=== PATIENT | male | born 1945 | race Caucasian/White ===

== ENCOUNTER → 2017-08-02 | Outpatient (CLI) | payer OTHER ==
[~2017-08-02] MED LIST: GADAVIST IV PRN
[2017-08-02 17:11] LABS: ISTAT ARTERIAL BLOOD GAS HCO3 31 meq/L (19-24); ISTAT ARTERIAL BLOOD GAS PCO2 57 mmHg (35-46); ISTAT ARTERIAL BLOOD GAS PO2 < 32 mmHg (80-95); ISTAT ARTERIAL BLOOD GAS pH 7.34 (7.35-7.45); ISTAT CARBON DIOXIDE 32 mEq/l (24-31)
[2017-08-02 17:21] LABS: ISTAT CREATININE 1.1 mg/dl (0.6-1.3); ISTAT HEMOGLOBIN 11.9 g/dl (14.0-18.0); ISTAT IONIZED CALCIUM 1.24 mmol/l (1.12-1.32)
--- NOTE | 2017-08-02 17:52 | DIAGNOSTIC IMAGING REPORT ---
Brain MRI WITH AND WITHOUT CONTRAST HISTORY: SHORT TERM MEMORY LOSS TECHNIQUE: Multiplanar multisequence MRI of the brain was performed both before and after the intravenous administration of contrast. COMPARISON STUDY: None. FINDINGS: There is no mass, hematoma, midline shift, or acute infarct. Moderate mucosal thickening throughout the majority of the paranasal sinuses with near complete opacification the right maxillary sinus due to a fluid level. Trace fluid within the left maxillary sinus and within the ethmoid air cells. Mild mucosal thickening within the mastoid air cells. Old lacunar infarcts seen within the left thalamus.. The ventricles and sulci demonstrate mild age-related involutional changes. Scattered foci of T2 hyperintensity seen within the periventricular and subcortical white matter are nonspecific but suggestive of mild microvascular ischemic changes. The major vascular flow voids at the skull base are well-maintained. No abnormal enhancement. IMPRESSION: No acute intracranial abnormality. Scattered foci of T2 hyperintensity seen within the periventricular and subcortical white matter are nonspecific but favor microvascular ischemic change. Acute on chronic paranasal sinusitis as described above. Electronically signed by: Boston Ball M.D. 08/02/2017 5:51 PM Dictated Date/Time: 08/02/2017 5:42 PM
== END | disposition home or self-care (01) ==
LOC: C.MRI 16:17
PROVIDERS: ATTEND Family Medicine
DX: R41.3 Other amnesia (principal); J01.90 Acute sinusitis, unspecified; J32.9 Chronic sinusitis, unspecified

== ENCOUNTER 2019-07-22 09:22 | Inpatient (IN) ==
[2019-07-22] MEDS ORDERED: OPTIRAY 320 125ml IV PRN (09:35)
--- NOTE | 2019-07-22 09:37 | CT Scan Report ---
CT head/brain wo con CLINICAL HISTORY: 73 years-old Male presenting with Stroke evaluation, left-sided weakness. TECHNIQUE: Multidetector CT imaging of the head was performed without the use of intravenous contrast . IV contrast: None. One or more dose lowering techniques were used consistent with the principles of ALARA (as low as reasonably achievable), including automatic exposure control, mA or kV adjustment t o individual patient size, and/or use of iterative reconstruction. COMPARISON: Correlation made to MRI brain from 2017. CT DOSE (mGy.cm): The estimated cumulative dose is 1076.28. FINDINGS: Blueprint Clerk topogram: The patient is edentulous. Proportional ventricular and sulcal prominence, likely age-related parenchymal volume loss. No hemorr leticia. Few old lacunar infarct suggested in the basal ganglia. No acute territorial infarct. No mass e ffect or midline shift. No extra-axial fluid collection. Extensive mucosal thickening in the paranasa l sinuses. Calvarium intact. IMPRESSION: 1. No acute intracranial abnormality. Electronically signed by: Axel Carbajal M.D. 07/22/2019 9:35 AM
[2019-07-22] MEDS ORDERED: MAGNESIUM SULFATE / D5W 1 GM/100 ML BAG IV ONE (09:41)
[2019-07-22] MEDS ORDERED: SODIUM CHLORIDE 0.9% 1000ML 1,000 ML IV ONE (09:41)
--- NOTE | 2019-07-22 09:49 | CT Scan Report ---
CT angio neck with con CLINICAL HISTORY: 73 years-old Male presenting with Pt c/o weakness, stroke alert. TECHNIQUE: Multidetector CT angiography of the neck was performed after the administration of intrave nous contrast. 3-D volumetric and/or maximum intensity projection (MIP) images were subsequently tamiko nstructed for review. IV contrast: 120 mL of Optiray 320. One or more dose lowering techniques were u sed consistent with the principles of ALARA (as low as reasonably achievable), including automatic ex posure control, mA or kV adjustment to individual patient size, and/or use of iterative reconstructio n. Stenosis measurements were based on NASCET-like criteria (distal lumen diameter as the denominator for stenosis measurement). COMPARISON: None. CT DOSE (mGy.cm): The estimated cumulative dose is 1076.28 mGy.cm. FINDINGS: Scissors Grinder topogram: Unremarkable. Aortic arch: Atherosclerosis of the three-vessel aortic arch with patent origins of the branch vessel s. Innominate artery: Noncalcified atherosclerotic plaque resulting in 50% stenosis. Right subclavian artery: Patent. Right common carotid artery: Noncalcified atherosclerotic plaque resulting in less than 25% stenosis of the distal portion. Right internal and external carotid arteries: Calcified and noncalcified atherosclerotic plaque at th e carotid bifurcation. Over 90% stenosis of the origin of the external carotid artery. Less than 50% stenosis of the proximal ICA beyond the bifurcation. Left common carotid artery: Less than 25% stenosis of the origin due to noncalcified atherosclerotic plaque. Left internal and external carotid arteries: Significant noncalcified atherosclerotic plaque at the b ifurcation with over 90% stenosis of the origin of the internal carotid artery. Origin of the externa l carotid artery widely patent. Remainder of the ICA patent. Left subclavian artery: Not calcified atherosclerotic plaque with less than 25% stenosis of the origi n and proximal course of the left subclavian artery. Vertebral arteries: Left dominant vertebral artery. Origin of the left vertebral artery is occluded a s well as the proximal course. Reconstitution of flow within the artery within the transverse foramen at C6-7 with irregularity of the artery until the level of the mid cervical spine. Widely patent rig ht vertebral artery in the upper cervical spine through the intradural portion. Left vertebral artery widely patent. Other: Limited intracranial evaluation within normal limits. Extensive paranasal sinus mucosal thicke ellen. Soft tissues of the neck normal. Degenerative changes of the cervical spine. Extensive emphysem a at the apices. IMPRESSION: 1. 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 This could suggest either extensive atherosclerosis or dissection. Notably, the left terry tebral artery is dominant rather than the right and the right vertebral artery is widely patent in th e upper cervical spine through the intradural portion. These findings may be on an acute or chronic b asis. 2. 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 3. 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 4. Lesser degrees of stenoses from atherosclerotic plaque as above. The report will be called/faxed according to standard departmental protocol. Electronically signed by: Axel Carbajal M.D. 07/22/2019 9:48 AM
--- NOTE | 2019-07-22 09:58 | CT Scan Report ---
CT angio head w con CLINICAL HISTORY: 73 years-old Male presenting with Pt c/o weakness. TECHNIQUE: Multidetector CT angiography of the head was performed after the administration of intrave nous contrast. 3-D volumetric and/or maximum intensity projection (MIP) images were subsequently tamiko nstructed for review. IV contrast: 120 mL of Optiray 320. One or more dose lowering techniques were u sed consistent with the principles of ALARA (as low as reasonably achievable), including automatic ex posure control, mA or kV adjustment to individual patient size, and/or use of iterative reconstructio n. COMPARISON: None. CT DOSE (mGy.cm): The estimated cumulative dose is 1076.28. FINDINGS: Furniture Arranger topogram: Unremarkable. Anterior circulation: Atherosclerosis of the cavernous segments of the internal carotid arteries. Int racranial portions of the internal carotid arteries patent to the level of the termini. Anterior cere bral arteries (BARON) patent. The A1 segment of the left BARON is hypoplastic. Middle cerebral arteries p atent. Anterior communicating artery patent. Posterior circulation: Left dominant vertebral artery. Intradural portions of the vertebral arteries patent. Posterior inferior cerebellar arteries patent. Basilar artery patent. Anterior inferior cereb ellar arteries poorly visualized. Superior cerebellar arteries patent. Focal vessel cut off of the di stal pubic one segment of the right posterior cerebral artery (CORPORATE EXECUTIVE CHEF). Left CORPORATE EXECUTIVE CHEF patent. Left posterior communicating artery (P-comm) patent. Right P-comm hypoplastic or aplastic. Dural venous sinuses: Patent. Other: Allowing for the phase of contrast, brain parenchyma within normal limits. Extensive coastal t hickening in the paranasal sinuses with evidence of chronic sinusitis. IMPRESSION: 1. 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 Notably, the right posterior communicating artery is hypoplastic or aplastic. The report will be called/faxed according to standard departmental protocol. Electronically signed by: Axel Carbajal M.D. 07/22/2019 9:57 AM
[2019-07-22 10:03] LABS: iSTAT Creatinine 1.2 mg/dl (0.6-1.3); iSTAT Hemoglobin 10.5 g/dl (14.0-18.0); iSTAT Ionized Calcium 1.09 mmol/l (1.12-1.32); iSTAT Potassium 4.3 mEq/L (3.3-5.0)
[2019-07-22 10:04] LABS: Basophils # (auto) 0.01 K/uL (0-0.2); Basophils % (auto) 0.2 %; Eosinophils # (auto) 0.24 K/uL (0-0.5); Eosinophils % (auto) 4.3 %; Hematocrit (blood only) 32.7 % (42-52); Hemoglobin 11.1 g/dL (14.0-18.0); Immature Granulocytes # (auto) 0.03 K/uL (0.00-0.02); Immature Granulocytes % (auto) 0.5 %; Lymphocytes # (auto) 0.97 K/uL (1.2-3.4); Lymphocytes % (auto) 17.4 %; Mean Corpuscular Hemoglobin 31.4 pg (25-34); Mean Corpuscular Hgb Conc 33.9 g/dL (32-36); Mean Corpuscular Volume 92.6 fL (80-100); Monocytes # (auto) 0.42 K/uL (0.11-0.59); Monocytes % (auto) 7.5 %; Neutrophils % (auto) 70.1 %; Platelet Count 147 K/uL (130-400); RDW Coefficient of Variation 12.2 % (11.5-14.5); RDW Standard Deviation 41.5 fL (36.4-46.3); Red Blood Count 3.53 M/uL (4.7-6.1); White Blood Count 5.57 K/uL (4.8-10.8)
[2019-07-22] MEDS ORDERED: ASPIRIN CHEW 324 MG PO STA (10:18)
[2019-07-22 10:23] LABS: Partial Thromboplastin Ratio 0.9; Partial Thromboplastin Time 23.2 Seconds (21.0-31.0); Prothrombin Time 10.2 Seconds (9.0-12.0)
[2019-07-22 10:28] LABS: Alanine Aminotransferase 44 U/L (12-78); Albumin Level 3.5 gm/dl (3.4-5.0); Aspartate Aminotransferase 11 U/L (15-37); BUN Creatinine Ratio 17.8 (10-20); Blood Urea Nitrogen 23 mg/dl (7-18); Calcium 9.1 mg/dl (8.5-10.1); Carbon Dioxide 28 mmol/L (21-32); Chloride 103 mmol/L (98-107); Creatinine Clr Calc Pharmacy 44.3 ml/min; Est GFR (African American) 61.9; Est GFR (Non-African American) 53.4; Glucose 185 mg/dl (70-99); Magnesium 2.1 mg/dl (1.8-2.4); Potassium 4.3 mmol/L (3.5-5.1); Sodium 138 mmol/L (136-145)
--- NOTE | 2019-07-22 10:31 | History & Physical Report ---
Date of Service July 22, 2019 Assessment & Plan (1) Stroke-like symptoms: CT head negative. CTA reveals some plaque in cerebral vessels. Per [facility] Neuro, no indication for intervention based on these studies. Stroke symptoms include L hemiparesis, L facial droop, difficulty with word finding. NIHSS is 4. Left lower extremity weakness has resolved, left facial droop is improving since ER arrival. No dysphasia screening has been performed secondary to facial droop. Aspirin 300 CT was given. Hold on all other p.o. meds until evaluated by speech pathology or until bedside swallow can be performed. Neurology consulted. Statin held while n.p.o. PT/OT evaluations. MRI brain pending. TTE ordered with bubble study. Allow permissive hypertension for 48 hours. (2) Sacral decubitus ulcer, stage II: OPTi foam daily pending wound care nurse evaluation and treatment. Turn every 2. (3) DMII (diabetes mellitus, type 2): Metformin held while inpatient. Continue Lantus and insulin sliding scale with carb coverage. A1c pending. (4) Hyperlipidemia: Held Lipitor while n.p.o. Lipid panel for a.m. (5) DVT prophylaxis: SCDs Full code Dispo-to med telemetry. Cari Lozada DO [facility] Hospitalist History of Present Illness Chief Complaint: Weakness in left side Primary Care Provider: Nithin Salinas 73-year-old man with no history of stroke or known cardiovascular disease who has a history of smoking presented to the ER via ambulance after experiencing strokelike symptoms at home. He reported waking up at 1:30 in the morning, but he was unclear what to place after this. Per his who is at bedside she states he got up out of bed and fell onto the floor was unable to get up. The patient states he remembers being unable to use his left arm. The patient denies headache or visual changes but does report difficulty finding his words. reports he had difficulty speaking and a clear new left-sided facial droop which is still present. The patient denies difficulty using his left leg, however, EMS reports he did have left lower extremity weakness. A stroke alert was called and TPA was not indicated as his symptoms were improving. Facial droop has improved and left upper extremity weakness has improved with complete resolution of lower extremity weakness. The patient still reports word finding difficulty but is articulating clearly. He does report respiratory symptoms last week including a productive cough for an unknown amount of time which has resolved. reports a history of COPD and that the patient takes albuterol inhaler as needed. The patient denies any recent [id number] medications he did not take his prescribed medications this morning. reports he recently lost his primary care doctor, who retired, and has not established care with anyone else. Review of systems is otherwise negative including no chest pain, shortness of breath, coughing, fever, chills, abdominal pain, urinary symptoms, changes in bowels. Allergies Allergy/AdvReac Type Severity Reaction Status Date / Time No Known Allergies Allergy Unverified 07/22/19 11:11 Home Medications Home Medications Medication Instructions Recorded Confirmed Type Effexor XR 150 mg PO DAILY 07/22/19 07/22/19 History albuterol sulfate 2 puff INHALATION Q6H PRN 07/22/19 07/22/19 History atorvastatin [Lipitor] 40 mg PO DAILY 07/22/19 07/22/19 History metformin 1,000 mg PO BID 07/22/19 07/22/19 History trazodone 50 mg PO HS PRN 07/22/19 07/22/19 History Past Med/Surg History Medical History Depression Diabetes H/O tobacco use, presenting hazards to health Hypertension Insomnia Family History Family/Other Diabetes Mother Heart disease Social History Preferred Language: Citizen Of The [place] Communication Ability: Effective Medical Anthropology Director Required: No Beliefs That Will Affect Care: None marital status: Current Living Situation: Spouse Other Information That Helps Us Care for You: No Feels Safe at Home: Yes Safety Concerns: Feels Safe At This Time Smoking Status: Former smoker Do You Dip or Chew Tobacco: No ; Second Hand Exposure: No ; Tobacco Cessation Education Requested by Patient: No Hx Alcohol Use: No Hx Substance Use: No Review of Systems Review of Systems: All systems reviewed & are unremarkable except as noted in HPI & below Physical Exam Physical Exam: CONSTITUTIONAL: WNWD, vitals as above, generally well- appearing EYES: EOMI bilaterally, PERRL, normal conjunctivae, no scleral icterus ENT: external ear and nose normal, oropharynx clear, MMM RESPIRATORY: crackles at the right base, otherwise clear to auscultation bilat erally with good air movement bilaterally, no wheezes, normal respiratory effort CARDIOVASCULAR: regular rate and rhythm, S1 and 2 heard without murmurs, gallops or rubs, no JVD, no peripheral edema GASTROINTESTINAL: normal bowel sounds, soft, nontender, nondistended MUSCULOSKELETAL: LUE 3/5 biceps/triceps but not able to direct his movements well, technical sales director strength intact, RUE/RLE 5/5 intact, head is normocephalic and atraumatic SKIN: warm and dry, sacral breakdown that is <1cm intergluteal fold with surrounding nonblanchable erythema-Stage II NEUROLOGIC: BR/pat DTR 2/4 bilat. L facial palsy, no dysarthria. No other cranial nerve deficits noted, no sensory deficit, normal cognition, normal speech, no tremor PSYCHIATRIC: alert cooperative and oriented to person, place and time. makes good eye contact, language grossly intact Results & Data Vital Signs (Past 12 Hours) Vital Signs Temp Pulse Pulse Resp BP Pulse Ox 07/22/19 10:15 67 18 183/74 H 98 07/22/19 10:01 66 14 169/75 H 98 07/22/19 09:56 37.1 C 60 18 157/68 H 98 07/22/19 09:43 74 24 186/67 H 98 07/22/19 09:22 72 20 98 Laboratory Results Short CBC 07/22/19 Range/Units 09:53 WBC 5.57 (4.8-10.8) K/uL Hgb 11.1 L (14.0-18.0) g/dL Hct 32.7 L (42-52) % Plt Count 147 (130-400) K/uL BMP 07/22/19 09:53 Sodium 138 Potassium 4.3 Chloride 103 Carbon Dioxide 28 BUN 23 H Creatinine 1.30 Glucose 185 H Calcium 9.1 Cardiac Enzymes 07/22/19 Range/Units 09:53 Troponin I < 0.015 (0-0.045) ng/ml Liver Function 07/22/19 Range/Units 09:53 Total Bilirubin 0.3 (0.2-1) mg/dl AST 11 L (15-37) U/L ALT 44 (12-78) U/L Alkaline Phosphatase 140 H (45-117) U/L Albumin 3.5 (3.4-5.0) gm/dl Diagnostic Findings XR chest 1V portable CLINICAL HISTORY: 73 years-old Male presenting with Pt c/o weakness. TECHNIQUE: Portable upright AP view of the chest was obtained. COMPARISON: None. FINDINGS: Cardiac silhouette mildly enlarged. Comment epicardial fat pad suggested along the cardiac apex. No focal opacity. No large effusion or pneumothorax. Degenerative changes of the thoracic spine. Upper abdomen normal. IMPRESSION: 1. Mild cardiomegaly. No other convincing evidence of acute cardiopulmonary disease. CT head/brain wo con CLINICAL HISTORY: 73 years-old Male presenting with Stroke evaluation, left- sided weakness. TECHNIQUE: Multidetector CT imaging of the head was performed without the use of intravenous contrast. IV contrast: None. One or more dose lowering techniques were used consistent with the principles of ALARA (as low as reasonably achievable), including automatic exposure control, mA or kV adjustment to individual patient size, and/or use of iterative reconstruction. COMPARISON: Correlation made to MRI brain from 2017. CT DOSE (mGy.cm): The estimated cumulative dose is 1076.28. FINDINGS: Machine Design Engineer topogram: The patient is edentulous. Proportional ventricular and sulcal prominence, likely age-related parenchymal volume loss. No hemorrhage. Few old lacunar infarct suggested in the basal ganglia. No acute territorial infarct. No mass effect or midline shift. No extra-axial fluid collection. Extensive mucosal thickening in the paranasal sinuses. Calvarium intact. IMPRESSION: 1. No acute intracranial abnormality. CT angio head w con CLINICAL HISTORY: 73 years-old Male presenting with Pt c/o weakness. TECHNIQUE: Multidetector CT angiography of the head was performed after the administration of intravenous contrast. 3-D volumetric and/or maximum intensity projection (MIP) images were subsequently reconstructed for review. IV contrast: 120 mL of Optiray 320. One or more dose lowering techniques were used consistent with the principles of ALARA (as low as reasonably achievable), including automatic exposure control, mA or kV adjustment to individual patient size, and/or use of iterative reconstruction. COMPARISON: None. CT DOSE (mGy.cm): The estimated cumulative dose is 1076.28. FINDINGS: Machine Design Engineer topogram: Unremarkable. Anterior circulation: Atherosclerosis of the cavernous segments of the internal carotid arteries. Intracranial portions of the internal carotid arteries patent to the level of the termini. Anterior cerebral arteries (BARON) patent. The A1 segment of the left BARON is hypoplastic. Middle cerebral arteries patent. Anterior communicating artery patent. Posterior circulation: Left dominant vertebral artery. Intradural portions of the vertebral arteries patent. Posterior inferior cerebellar arteries patent. B asilar artery patent. Anterior inferior cerebellar arteries poorly visualized. Superior cerebellar arteries patent. Focal vessel cut off of the distal pubic one segment of the right posterior cerebral artery (CT SCAN TECH). Left CT SCAN TECH patent. Left posterior communicating artery (P-comm) patent. Right P-comm hypoplastic or aplastic. Dural venous sinuses: Patent. Other: Allowing for the phase of contrast, brain parenchyma within normal limits. Extensive coastal thickening in the paranasal sinuses with evidence of chronic sinusitis. IMPRESSION: 1. 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 Notably, the right posterior communicating artery is hypoplastic or aplastic. CT angio neck with con CLINICAL HISTORY: 73 years-old Male presenting with Pt c/o weakness, stroke alert. TECHNIQUE: Multidetector CT angiography of the neck was performed after the administration of intravenous contrast. 3-D volumetric and/or maximum intensity projection (MIP) images were subsequently reconstructed for review. IV contrast: 120 mL of Optiray 320. One or more dose lowering techniques were used consistent with the principles of ALARA (as low as reasonably achievable), including automatic exposure control, mA or kV adjustment to individual patient size, and/or use of iterative reconstruction. Stenosis measurements were based on NASCET-like criteria (distal lumen diameter as the denominator for stenosis measurement). COMPARISON: None. CT DOSE (mGy.cm): The estimated cumulative dose is 1076.28 mGy.cm. FINDINGS: Machine Design Engineer topogram: Unremarkable. Aortic arch: Atherosclerosis of the three-vessel aortic arch with patent origins of the branch vessels. Innominate artery: Noncalcified atherosclerotic plaque resulting in 50% stenosis. Right subclavian artery: Patent. Right common carotid artery: Noncalcified atherosclerotic plaque resulting in less than 25% stenosis of the distal portion. Right internal and external carotid arteries: Calcified and noncalcified atherosclerotic plaque at the carotid bifurcation. Over 90% stenosis of the origin of the external carotid artery. Less than 50% stenosis of the proximal ICA beyond the bifurcation. Left common carotid artery: Less than 25% stenosis of the origin due to noncalcified atherosclerotic plaque. Left internal and external carotid arteries: Significant noncalcified atherosclerotic plaque at the bifurcation with over 90% stenosis of the origin of the internal carotid artery. Origin of the external carotid artery widely patent. Remainder of the ICA patent. Left subclavian artery: Not calcified atherosclerotic plaque with less than 25% stenosis of the origin and proximal course of the left subclavian artery. Vertebral arteries: Left dominant vertebral artery. Origin of the left vertebral artery is occluded as well as the proximal course. Reconstitution of flow within the artery within the transverse foramen at C6-7 with irregularity of the artery until the level of the mid cervical spine. Widely patent right vertebral artery in the upper cervical spine through the intradural portion. Left vertebral artery widely patent. Other: Limited intracranial evaluation within normal limits. Extensive paranasal sinus mucosal thickening. Soft tissues of the neck normal. Degenerative changes of the cervical spine. Extensive emphysema at the apices. IMPRESSION: 1. 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 This could suggest either extensive atherosclerosis or dissection. Notably, the left vertebral artery is dominant rather than the right and the right vertebral artery is widely patent in the upper cervical spine through the intradural portion. These findings may be on an acute or chronic basis. 2. 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 3. 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 4. Lesser degrees of stenoses from atherosclerotic plaque as above. Medications Administered ASA 300 CT x 1 given in ER. Code Status & VTE Plan Code Status Full VTE Prophylaxis Plan VTE Prophylaxis will be ordered: Yes Critical Care Time Critical Care Time: No
[2019-07-22 10:32] LABS: Albumin Globulin Ratio 1.1 (0.9-2); Alkaline Phosphatase 140 U/L (45-117); Bilirubin,Total 0.3 mg/dl (0.2-1); Globulin 3.1 gm/dl (2.5-4.0); Total Protein 6.6 gm/dl (6.4-8.2); Troponin I < 0.015 ng/ml (0-0.045)
[2019-07-22] MEDS ORDERED: ASPIRIN 300 MG SUPP PR STA (10:32)
--- NOTE | 2019-07-22 10:34 | XRay Report ---
XR chest 1V portable CLINICAL HISTORY: 73 years-old Male presenting with Pt c/o weakness. TECHNIQUE: Portable upright AP view of the chest was obtained. COMPARISON: None. FINDINGS: Cardiac silhouette mildly enlarged. Comment epicardial fat pad suggested along the cardiac apex. No f ocal opacity. No large effusion or pneumothorax. Degenerative changes of the thoracic spine. Upper ab domen normal. IMPRESSION: 1. Mild cardiomegaly. No other convincing evidence of acute cardiopulmonary disease. Electronically signed by: Axel Carbajal M.D. 07/22/2019 10:33 AM
[2019-07-22] MEDS ORDERED: CARBOHYDRATES FOR HYPOGLYCEMIA PO PRN (11:39)
[2019-07-22] MEDS ORDERED: SODIUM CHLORIDE 0.9% 1000ML 1,000 ML IV SCH (11:39)
[2019-07-22] MEDS ORDERED: GLUCAGON FOR INJ 1 MG VIAL SQ PRN (11:39)
[2019-07-22] MEDS ORDERED: ALBUTEROL HFA 8 GM INHALER INH PRN (11:39)
[2019-07-22] MEDS ORDERED: DEXTROSE 50% 50 ML SYRINGE IV PRN (11:39)
[2019-07-22] MEDS ORDERED: GLUCOSE 10 TABS/TUBE PO PRN (11:39)
[2019-07-22] MEDS ORDERED: GLUCOSE 40% GEL 15 GM TUBE PO PRN (11:39)
[2019-07-22] MEDS ORDERED: PHARMACIST DISCHARGE MED REC CONSULT PRN (11:39)
[2019-07-22 12:07] LABS: Estimated Average Glucose 146 mg/dl; Hemoglobin A1C 6.7 % (4.5-5.6)
[2019-07-22 12:26] LABS: BUN Creatinine Ratio 16.7 (10-20); Calcium 8.3 mg/dl (8.5-10.1); Creatinine Clr Calc Pharmacy 45.4 ml/min; Est GFR (African American) 63.6; Est GFR (Non-African American) 54.9; Potassium 4.1 mmol/L (3.5-5.1)
[2019-07-22] MEDS: ATORVASTATIN 40 MG TAB PO SCH (13:42)
[2019-07-22] MEDS: INSULIN ASPART 100 UNITS/ML 3 ML PEN SC SCH ×3 (13:45→21:12)
--- NOTE | 2019-07-22 15:51 | Magnetic Resonance Report ---
MR brain wo con CLINICAL HISTORY: 73 years-old Male presenting with loss of control of the left side of the body, str loren like symptoms. TECHNIQUE: Multisequence, multiplanar MR imaging of the brain was performed without the use of intrav enous contrast. IV contrast: None. COMPARISON: Brain MR from [address] head performed earlier today. FINDINGS: Localizer images: Unremarkable. Bone marrow signal intensity within the calvarium within normal limits. Mucosal thickening in paranas al sinuses. Normal midline sagittal structures. Proportional ventricular and sulcal prominence, likely age-relate d parenchymal volume loss. No mass effect or midline shift. Acute punctate infarct in the right occip ital lobe. More extensive acute infarct in the right hippocampus. Acute lacunar infarcts in the right thalamus and right caudate body-superior putamen. Minimal periventricular and subcortical white cathy er T2/FLAIR hyperintensity, nonspecific and likely either age-related change or chronic small vessel ischemic change. No extra-axial fluid collection. T2 skull base flow voids preserved. IMPRESSION: 1. Multiple small acute lacunar infarcts affecting the right basal ganglia and right thalamus. More extensive infarct in the right hippocampus. Minimal acute lacunar infarct in the right occipital lobe . Electronically signed by: Axel Carbajal M.D. 07/22/2019 3:50 PM
[2019-07-22] MEDS ORDERED: ACETAMINOPHEN 325 MG TAB PO PRN (19:51)
[2019-07-22] MEDS ORDERED: ACETAMINOPHEN 325 MG TAB ONE (19:57)
[2019-07-22] MEDS: INSULIN GLARGINE SOLOSTAR 100 UNITS/ML 3 ML PEN SC SCH (20:00)
[2019-07-23 06:57] LABS: Basophils # (auto) 0.01 K/uL (0-0.2); Basophils % (auto) 0.1 %; Eosinophils # (auto) 0.24 K/uL (0-0.5); Eosinophils % (auto) 3.6 %; Hematocrit (blood only) 31.3 % (42-52); Hemoglobin 10.7 g/dL (14.0-18.0); Immature Granulocytes # (auto) 0.01 K/uL (0.00-0.02); Immature Granulocytes % (auto) 0.1 %; Lymphocytes # (auto) 1.13 K/uL (1.2-3.4); Lymphocytes % (auto) 16.8 %; Mean Corpuscular Hemoglobin 31.8 pg (25-34); Mean Corpuscular Hgb Conc 34.2 g/dL (32-36); Mean Corpuscular Volume 92.9 fL (80-100); Mean Platelet Volume 10.1 fL (7.4-10.4); Monocytes # (auto) 0.56 K/uL (0.11-0.59); Monocytes % (auto) 8.3 %; Neutrophils # (auto) 4.78 K/uL (1.4-6.5); Neutrophils % (auto) 71.1 %; Platelet Count 152 K/uL (130-400); RDW Coefficient of Variation 12.4 % (11.5-14.5); RDW Standard Deviation 41.8 fL (36.4-46.3); Red Blood Count 3.37 M/uL (4.7-6.1); White Blood Count 6.73 K/uL (4.8-10.8)
[2019-07-23 07:42] LABS: BUN Creatinine Ratio 13.9 (10-20); Calcium 8.8 mg/dl (8.5-10.1); Creatinine Clr Calc Pharmacy 49.7 ml/min; Est GFR (Non-African American) 61.3
[2019-07-23] MEDS: INSULIN GLARGINE SOLOSTAR 100 UNITS/ML 3 ML PEN SC SCH ×2 (08:16→20:52)
[2019-07-23] MEDS: ASPIRIN 81 MG ECTAB PO SCH (08:16)
[2019-07-23] MEDS: ATORVASTATIN 40 MG TAB PO SCH (08:16)
[2019-07-23] MEDS ORDERED: ASPIRIN 300 MG SUPP PR SCH (09:00)
[2019-07-23] MEDS: INSULIN ASPART 100 UNITS/ML 3 ML PEN SC SCH ×4 (09:27→20:46)
--- NOTE | 2019-07-23 09:31 | Neurology Consultation ---
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 Florentino Villareal in a 73 year old male admitted with acute right CLIENT SERVICE SUPERVISOR/MCA terriotry infarct with left hemiparesis (Upper>lower), facial droop, dysarthria, and moderate to severe ataxia. On review of is MRI brain most of the infart appears patchy in the right CLIENT SERVICE SUPERVISOR territory with CTA showing an occluded right P1 artery. However, there is infarct in the right longoria radiata Vs basal ganglia which would suggest some MCA territory involvement. He also has severe stenosis of the left internal carotid artery at the origin. 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 - Recommend maximal medical therapy, ASA 81 mg daily and Plavix 75 mg daily - Recommend Lipitor 80 mg daily - Aggressive blood pressure management with avoiding hypotension, SBP < 140, DBP<90 mm Hg - HA1c <7, LDL <70 - Will need outpatient Neurosurgery or vascular surgery referral for left ICA stenosis - Continue Telemetry, Recommend outpatient 30-day event monitor - PT/OT/ SS - TTE report review. EF 55-60% No cardiac source of embolism. - Recommend checking Ha1c Outpatient follow up with Neurology in 8-weeks (2) Acute right MCA stroke: (3) Stenosis of carotid artery: History of Present Illness Attending Physician: Cari Lozada, History of Present Illness A 73 year old male with Hx of type II DM and HLD admitted with acute onset left sided weakness yesterday. Stroke alert was called. Patient did not recieve TPA as he was outside the window. CTA head and neck showed right P1 occlussion and severe right ICA stenosis. NIHSS 4. He reportedly woke up at 1:30 in the morning yesterday. Per his who is at bedside she states he got up out of bed and fell onto the floor was unable to get up. The patient states he remembers being unable to use his left arm and had word finding difficulty. reports he had difficulty speaking and noticed a left facial droop. He has a history of COPD and that the patient takes albuterol inhaler as needed. He had an MRI brain on admission which showed a right internal capsule, right thalamus, and right medial temporal lobe stroke. Per last known normal was at 1:30 yesterday. He noticed left kana weakness at that tme. Woke around 730 and noticed left sided weakness has progressed to left leg. He fell out of bed at that time. No history of stroke. Not on asa at home. NO history of known afib. Former smoke. No EtOH. Allergies Allergy/AdvReac Type Severity Reaction Status Date / Time No Known Allergies Allergy Unverified 07/22/19 11:11 Home Medications Home Medications Medication Instructions Recorded Confirmed Type Effexor XR 150 mg PO DAILY 07/22/19 07/22/19 History albuterol sulfate 2 puff INHALATION Q6H PRN 07/22/19 07/22/19 History atorvastatin [Lipitor] 40 mg PO DAILY 07/22/19 07/22/19 History metformin 1,000 mg PO BID 07/22/19 07/22/19 History trazodone 50 mg PO HS PRN 07/22/19 07/22/19 History Patient History Medical History Depression Diabetes H/O tobacco use, presenting hazards to health Hypertension Insomnia Family History Family/Other Diabetes Mother Heart disease Social History Preferred Language: Taiwanese Communication Ability: Effective Web Development Consultant Required: No Beliefs That Will Affect Care: None marital status: Current Living Situation: Spouse Other Information That Helps Us Care for You: No Feels Safe at Home: Yes Safety Concerns: Feels Safe At This Time Smoking Status: Former smoker Do You Dip or Chew Tobacco: No ; Second Hand Exposure: No ; Tobacco Cessation Education Requested by Patient: No Hx Alcohol Use: No Hx Substance Use: No Physical Exam Physical Exam: EXAM: Constitutional: appears acutely ill, no distress Head and Face: normocephalic and atraumatic Eyes: normal lids, normal conjunctiva Neck: supple Respiratory: normal effort Cardiovascular: normal pulses Abdomen: his abdomen is distended Skin: no rashes, lesions, or ulcers noted Psychiatric: flat NEUROLOGIC EXAMINATION: Appearance: no acute distress Orientation: Oriented x 3 Mental Status: lethargic Memory: Ok Attention: decreased Knowledge: appropriate Language: no aphasia Speech: mild dysarthria Cranial Nerves: CN 2 - no visual defect on confrontation and pupils round, equal, reactive to light CN 3, 4, 6 - extra-ocular movements intact and no nystagmus CN 5 - facial sensation intact CN 7 - left facial droop CN 8 - intact hearing CN 9, 10 - palate symmetric CN 11 - good shoulder shrug CN 12 - tongue midline Gait: deferred Coordination: modearte to severe ataxia with finger to nose and heel to ann on the left Sensory: numbness in left arm Muscle Tone: normal Muscle exam: some effort against gravity in left upper extremity, drift in left lower extremity, some movement in left hand Reflexes: Toes down going Results & Data Vital Signs (Past 12 Hours) Vital Signs Temp Pulse Pulse Resp BP Pulse Ox 07/23/19 07:28 58 L 07/23/19 07:16 37.4 C 58 L 20 186/69 H 95 07/23/19 03:44 36.9 C 66 18 158/53 H 96 07/23/19 00:12 37.1 C 56 L 18 156/50 H 92 07/23/19 00:00 54 L Diagnostic Findings MRI Brain: Multiple small acute lacunar infarcts affecting the right basal ganglia and right thalamus. More extensive infarct in the right hippocampus. Minimal acute lacunar infarct in the right occipital lobe. CTA Head and Neck: 1. 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 Notably, the right posterior communicating artery is hypoplastic or aplastic. 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 This could suggest either extensive atherosclerosis or dissection. 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
--- NOTE | 2019-07-23 10:50 | Hospitalist Progress Note ---
Date of Service July 23, 2019 Assessment & Plan (1) Stroke: MRI revealed evidence of stroke. Swallow study performed yesterday and he is doing well swallowing today. Cont ASA and Liptior for secondary prevention. PT/OT, Neuro recs pending. (2) DMII (diabetes mellitus, type 2): A1C reflects good control, Continue Lantus and insulin sliding scale with carb coverage. (3) Hyperlipidemia: Cont Lipitor (4) Sacral decubitus ulcer, stage II: OPTi foam daily pending wound care nurse evaluation and treatment. Turn every 2. (5) DVT prophylaxis: SCDs Full code Dispo-to med telemetry. Cari Lozada, [facility] Subjective doing well, appeared to not realize he was off the phone for a few minutes before I prompted him to bring the phone down away from his ear. He denies any headache or visual changes. He feels some improvement in his LUE/LLE weakness, but has difficulty controlling movements in these limbs. He is tolerating PO and denies difficulty swallowing. He has not been up and walking around yet. Review of Systems Review of Systems: All systems reviewed & are unremarkable except as noted in HPI & below Physical Exam Physical Exam: CONSTITUTIONAL: WNWD, vitals as above, generally well- appearing EYES: EOMI bilaterally, PERRL, normal conjunctivae, no scleral icterus ENT: oropharynx clear, MMM RESPIRATORY: clear to auscultation bilaterally with good air movement bilaterally, no wheezes, normal respiratory effort CARDIOVASCULAR: regular rate and rhythm, S1 and 2 heard without murmurs, gallops or rubs, no JVD, no peripheral edema GASTROINTESTINAL: normal bowel sounds, soft, nontender, nondistended MUSCULOSKELETAL: LUE 3/5 biceps/triceps but not able to direct his movements well, electrical repairer strength intact on the right, weak on the left. LLE has 5/5 strength but difficult to direct his voluntary movements, RUE/RLE 5/5 intact, head is normocephalic and atraumatic SKIN: warm and dry, sacral breakdown that is <1cm intergluteal fold with surrounding nonblanchable erythema-Stage II NEUROLOGIC: L facial palsy has resovled, no dysarthria. No other cranial nerve deficits noted, no sensory deficit, normal cognition, normal speech, no tremor. I question receptive and expressive aphasia to some extent. ? PSYCHIATRIC: alert cooperative and oriented to person, place and time. Results & Data Vital Signs (Past 12 Hours) Vital Signs Temp Pulse Pulse Resp BP Pulse Ox 07/23/19 07:28 58 L 07/23/19 07:16 37.4 C 58 L 20 186/69 H 95 07/23/19 03:44 36.9 C 66 18 158/53 H 96 07/23/19 00:12 37.1 C 56 L 18 156/50 H 92 07/23/19 00:00 54 L Laboratory Results Short CBC 07/23/19 Range/Units 06:40 WBC 6.73 (4.8-10.8) K/uL Hgb 10.7 L (14.0-18.0) g/dL Hct 31.3 L (42-52) % Plt Count 152 (130-400) K/uL BMP 07/22/19 07/23/19 11:43 06:40 Sodium 140 140 Potassium 4.1 4.0 Chloride 106 107 Carbon Dioxide 28 28 BUN 21 H 16 Creatinine 1.27 1.16 Glucose 184 H 147 H Calcium 8.3 L 8.8 Diagnostic Findings MR brain wo con CLINICAL HISTORY: 73 years-old Male presenting with loss of control of the left side of the body, stroke like symptoms. TECHNIQUE: Multisequence, multiplanar MR imaging of the brain was performed without the use of intravenous contrast. IV contrast: None. COMPARISON: Brain MR from [address] head performed earlier today. FINDINGS: Localizer images: Unremarkable. Bone marrow signal intensity within the calvarium within normal limits. Mucosal thickening in paranasal sinuses. Normal midline sagittal structures. Proportional ventricular and sulcal prominence, likely age-related parenchymal volume loss. No mass effect or midline shift. Acute punctate infarct in the right occipital lobe. More extensive acute infarct in the right hippocampus. Acute lacunar infarcts in the right thalamus and right caudate body-superior putamen. Minimal periventricular and subcortical white matter T2/FLAIR hyperintensity, nonspecific and likely either age-related change or chronic small vessel ischemic change. No extra-axial fluid collection. T2 skull base flow voids preserved. IMPRESSION: 1. Multiple small acute lacunar infarcts affecting the right basal ganglia and right thalamus. More extensive infarct in the right hippocampus. Minimal acute lacunar infarct in the right occipital lobe. Medications Administered Current Inpatient Medications Acetaminophen (Tylenol) 650 mg PO Q6H PRN PRN Reason: Fever Stop: 08/21/19 19:50 Albuterol (Ventolin Hfa) 2 puffs INH Q6H PRN PRN Reason: sob or wheezing Stop: 08/21/19 11:38 Aspirin (Ecotrin Ectab) 81 mg PO QAM [facility] Stop: 08/22/19 08:59 Last Admin: 07/23/19 08:16 Dose: 81 mg Documented by: Atorvastatin Calcium (Lipitor) 40 mg PO QAM [facility] Stop: 08/21/19 11:38 Last Admin: 07/23/19 08:16 Dose: 40 mg Documented by: Dextrose (Dextrose 50%) 25 - 50 ml IV UD PRN; Protocol PRN Reason: Hypoglycemia Protocol Stop: 08/21/19 11:38 Glucagon (Glucagen) 1 mg SQ UD PRN; Protocol PRN Reason: Hypoglycemia Protocol Stop: 08/21/19 11:38 Glucose (Dex4 Glucose) 4 - 8 tabs PO UD PRN; Protocol PRN Reason: Hypoglycemia Protocol Stop: 08/21/19 11:38 Glucose (Glucose 40%) 15 - 30 gm PO UD PRN; Protocol PRN Reason: Hypoglycemia Protocol Stop: 08/21/19 11:38 Insulin Aspart (Novolog Flexpen) 0 units SC ACHS [facility] Stop: 08/21/19 11:38 Last Admin: 07/23/19 09:27 Dose: Not Given Documented by: Insulin Glargine (Lantus Solostar Pen) 10 units SC BID [facility] Stop: 08/21/19 20:59 Last Admin: 07/23/19 08:16 Dose: 10 units Documented by: Ioversol (Optiray 320 125ml) 120 ml IV ONCE PRN PRN Reason: Interaction Checking Stop: 07/26/19 09:34 Last Admin: 07/22/19 09:36 Dose: 120 ml Documented by: Miscellaneous (Carbohydrates For Hypoglycemia) 15 - 30 gm PO UD PRN PRN Reason: Hypoglycemia Treatment Stop: 08/21/19 11:38 Miscellaneous Information (Pharmacist Discharge Med Rec Consult) 1 ea N/A UD PRN PRN Reason: Consult Stop: 08/21/19 11:38
[2019-07-23] MEDS ORDERED: ATORVASTATIN 40 MG TAB PO ONE (14:30)
[2019-07-23] MEDS: CLOPIDOGREL BISULFATE 75 MG TAB PO SCH (14:32)
--- NOTE | 2019-07-24 06:23 | Emergency Department Note ---
Entered by Malik Segundo acting as a scribe for Sundeep Argueta MD History of Present Illness General Stated complaint: stroke alert Source: RN notes reviewed History of Present Illness Provider complaint: Stroke like symptoms Onset (ago): hour(s) (1.5) Location: head Radiation: non-radiation Pain Consistency: + constant Relieved By: + none Exacerbated By: + none Associated symptoms: + weakness and + other (Positive facial droop) The patient is a 73 year old male who presents to the Emergency Room with complaints of constant stroke like symptoms that started about 90 minutes prior to arrival, per the nursing note. The nurse states that the patient was last known well at 01:30 this morning. The nurse reports that at 08:00 the patient rolled out of bed and called 911. When EMS arrived the patient's left arm was flaccid and he had left sided facial droop. The patient states "I lost control of my left arm" during exam. The patient denies any recent illness or being on any blood thinners. The patient is a diabetic and is on Metformin. HPI is limite d secondary to patient's cognitive status. Home Medications Home Medications Medication Instructions Recorded Confirmed Type Effexor XR 150 mg PO DAILY 07/22/19 07/22/19 History albuterol sulfate 2 puff INHALATION Q6H PRN 07/22/19 07/22/19 History atorvastatin [Lipitor] 40 mg PO DAILY 07/22/19 07/22/19 History metformin 1,000 mg PO BID 07/22/19 07/22/19 History trazodone 50 mg PO HS PRN 07/22/19 07/22/19 History Allergies Allergy/AdvReac Type Severity Reaction Status Date / Time No Known Allergies Allergy Unverified 07/22/19 11:11 Past Med/Surg History Medical History Depression Diabetes H/O tobacco use, presenting hazards to health Hypertension Insomnia Family History Family/Other Diabetes Mother Heart disease Social History Preferred Language: Divehi Communication Ability: Effective 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 Other (Limited secondary to patient's cognitive status ) Physical Exam Vital Signs Vital Signs - 24 hr 07/23/19 07:16 07/23/19 07:28 Temperature 37.4 C Temperature Source Oral Pulse Rate 58 L Pulse Rate [Right Finger] 58 L Respiratory Rate 20 Blood Pressure [Right Arm] 186/69 H Blood Pressure Mean [Right Arm] 108 Blood Pressure Position [Right Arm] Lying Pulse Oximetry 95 Oxygen Delivery Method Room Air GENERAL: Awake, alert, well-appearing, in no distress HENT: Normocephalic, atraumatic. Oropharynx unremarkable. EYES: Normal conjunctiva. Sclera non-icteric. NECK: Supple. No nuchal rigidity. FROM. No masses. RESPIRATORY: Clear to auscultation. No wheezes. No rales. Normal respiratory effort. CARDIAC: Normal rate. Normal rhythm. No murmurs. No rubs. Extremities warm and well perfused. Pulses equal. No JVD. GI: Soft, non-distended. No tenderness to palpation. No rebound or guarding. No masses. RECTAL: Deferred. MUSCULOSKELETAL: Atraumatic. Chest examination reveals no tenderness. The back is symmetrical on inspection without obvious abnormality. There is no CVA tenderness to palpation. No joint edema. LOWER EXTREMITIES: Calves are equal size bilaterally and non-tender. No edema. No discoloration. NEURO: Normal sensorium. No sensory deficits noted. 4/5 strength in his left arm and left leg. Course 0923: Past medical records reviewed and a stroke alert was called from the field. The patient was evaluated in room B01, and a complete history and physical examination were performed. 0938: I spoke to Dr. Mary Dominguez Neurology about the patient's case. She is going to evaluated the patient via TeleStroke and I am going to call her back when I have the CT results. 0957: I reevaluated the patient and he states that he feels much better than before. 1003: I spoke to Dr. Hernandez after she evaluated the patient and she does not think the patient is a TPA candidate. 1016: I spoke to Dr. Neville Garcia Hospitalist about the patient's case. She is going to accept the patient for further evaluation. Consultations Consultation #1: I spoke to Dr. Mary Moreno [facility] about the patient's case. She is going to evaluated the patient via TeleStroke and I am going to call her back when I have the CT results. Time: 09:38 Consultation #2: I spoke to Dr. Hernandez after she evaluated the patient and she does not think the patient is a TPA candidate. Time: 10:03 Consultation #3: I spoke to Dr. Neville Garcia Hospitalist about the patient's case. She is going to accept the patient for further evaluation. Time: 10:16 Administered Medications Aspirin (Ecotrin Ectab) 81 mg PO QAM [facility] Stop: 08/22/19 08:59 Last Admin: 07/23/19 08:16 Dose: 81 mg Documented by: [id number] Clopidogrel Bisulfate (Plavix) 75 mg PO [facility] Stop: 08/22/19 14:59 Last Admin: 07/23/19 14:32 Dose: 75 mg Documented by: [id number] Insulin Aspart (Novolog Flexpen) 0 units SC [facility] Stop: 08/21/19 11:38 Last Admin: 07/23/19 20:46 Dose: Not Given Documented by: [id number] Cosigned by: [id number] Admin: 07/23/19 17:24 Dose: Not Given Documented by: [id number] Cosigned by: [id number] Admin: 07/23/19 12:00 Dose: Not Given Documented by: [id number] Cosigned by: [id number] Admin: 07/23/19 09:27 Dose: Not Given Documented by: [id number] Cosigned by: [id number] Admin: 07/22/19 21:12 Dose: Not Given Documented by: [id number] Cosigned by: [id number] Admin: 07/22/19 17:43 Dose: 2 units Documented by: [id number] Cosigned by: [id number] Admin: 07/22/19 13:45 Dose: 1 units Documented by: [id number] Cosigned by: [id number] Insulin Glargine (Lantus Solostar Pen) 10 units SC BID [facility]A Stop: 08/21/19 20:59 Last Admin: 07/23/19 20:52 Dose: 10 units Documented by: [id number] Cosigned by: [id number] Admin: 07/23/19 08:16 Dose: 10 units Documented by: [id number] Cosigned by: [id number] Admin: 07/22/19 20:00 Dose: 10 units Documented by: [id number] Cosigned by: [id number] Ioversol (Optiray 320 125ml) 120 ml IV ONCE PRN PRN Reason: Interaction Checking Stop: 07/26/19 09:34 Last Admin: 07/22/19 09:36 Dose: 120 ml Documented by: [id number] Discontinued Medications Acetaminophen (Tylenol) Confirm Administered Dose 650 mg .ROUTE .STK-MED ONE Stop: 07/22/19 19:58 Last Admin: 07/22/19 19:58 Dose: 650 mg Documented by: [id number] Aspirin (Aspirin) 324 mg PO NOW STA Stop: 07/22/19 10:19 Last Admin: 07/22/19 11:00 Dose: Not Given Documented by: [id number] Aspirin (Aspirin) 300 mg RI ONE STA Stop: 07/22/19 10:33 Last Admin: 07/22/19 10:54 Dose: 300 mg Documented by: [id number] Atorvastatin Calcium (Lipitor) 40 mg PO QAM KIKA Stop: 08/21/19 11:38 Last Admin: 07/23/19 08:16 Dose: 40 mg Documented by: [id number] Admin: 07/22/19 13:42 Dose: Not Given Documented by: [id number] Atorvastatin Calcium (Lipitor) 40 mg PO NOW ONE Stop: 07/23/19 14:31 Last Admin: 07/23/19 14:32 Dose: 40 mg Documented by: [id number] Sodium Chloride (Nss 1000ml) 1,000 mls @ 999 mls/hr IV .[id number] ONE Stop: 07/22/19 10:41 Last Infusion: 07/22/19 11:00 Dose: 0 mls/hr Documented by: [id number] Admin: 07/22/19 09:55 Dose: 999 mls/hr Documented by: [id number] Magnesium Sulfate/Dextrose (Magnesium Sulfate / D5w) 1 gm in 100 mls @ 100 mls/hr IV ONE ONE Stop: 07/22/19 10:40 Last Infusion: 07/22/19 11:00 Dose: 0 mls/hr Documented by: [id number] Admin: 07/22/19 09:54 Dose: 100 mls/hr Documented by: [id number] Sodium Chloride (Nss 1000ml) 1,000 mls @ 80 mls/hr IV .[id number] KIKA Stop: 07/23/19 00:08 Last Infusion: 07/23/19 01:14 Dose: 0 mls/hr Documented by: [id number] Admin: 07/22/19 12:13 Dose: 80 mls/hr Documented by: [id number] Medical Decision Making Differential Diagnosis Differential Diagnosis includes but is not limited to ischemic Stroke, hemorrhagic stroke, bells palsy, mass, neoplasm, migraine headache, seizure, subarachnoid hemorrhage, TIA, and transient global amnesia. Medical Records Attestation: I reviewed the patient's medical records. Home Medications Current Medication List: was personally reviewed by me Laboratory Data Attestation: I reviewed the patient's lab results. Result diagrams: 07/23/19 06:40 07/23/19 06:40 Lab Results 07/22/19 07/22/19 07/22/19 Range/Units 09:38 09:49 09:53 WBC 5.57 (4.8-10.8) K/uL RBC 3.53 L (4.7-6.1) M/uL Hgb 11.1 L (14.0-18.0) g/dL POC Hgb 10.5 L (14.0-18.0) g/dl Hct 32.7 L (42-52) % POC Hct 31 L (42-52) % MCV 92.6 (80-100) fL MCH 31.4 (25-34) pg MCHC 33.9 (32-36) g/dL RDW Std Deviation 41.5 (36.4-46.3) fL RDW Coeff of Minnie 12.2 (11.5-14.5) % Plt Count 147 (130-400) K/uL MPV 10.0 (7.4-10.4) fL Immature Gran % (Auto) 0.5 % Neut % (Auto) 70.1 % Lymph % (Auto) 17.4 % [place] % (Auto) 7.5 % Eos % (Auto) 4.3 % Baso % (Auto) 0.2 % Immature Gran # (Auto) 0.03 H (0.00-0.02) K/uL Neut # (Auto) 3.90 (1.4-6.5) K/uL Lymph # (Auto) 0.97 L (1.2-3.4) K/uL [place] # (Auto) 0.42 (0.11-0.59) K/uL Eos # (Auto) 0.24 (0-0.5) K/uL Baso # (Auto) 0.01 (0-0.2) K/uL PT (9.0-12.0) Seconds INR (0.9-1.1) APTT (21.0-31.0) Seconds PTT Ratio POC Sodium 136 (135-144) mEq/L Sodium (136-145) mmol/L POC Potassium 4.3 (3.3-5.0) mEq/L Potassium (3.5-5.1) mmol/L POC Chloride 100 L (101-112) mEq/L Chloride (98-107) mmol/L Carbon Dioxide (21-32) mmol/L POC Total CO2 24 (24-31) mEq/l Anion Gap (3-11) POC Anion Gap 16.0 (16-25) mmol/L POC BUN 23 H (7-18) mg/dl BUN (7-18) mg/dl Creatinine (0.6-1.4) mg/dl POC Creatinine 1.2 (0.6-1.3) mg/dl Est Cr Clr Drug Dosing ml/min Est GFR ( Amer) Est GFR (Non-Af Amer) BUN/Creatinine Ratio (10-20) Glucose (70-99) mg/dl POC Glucose 172 H (70-99) POC Glucose (other) 183 H (70-99) mg/dl Estimat Average Glucose mg/dl Hemoglobin A1c (4.5-5.6) % Calcium (8.5-10.1) mg/dl POC Ioniz Calcium Dewey 1.09 L (1.12-1.32) mmol/l Magnesium (1.8-2.4) mg/dl Total Bilirubin (0.2-1) mg/dl AST (15-37) U/L ALT (12-78) U/L Alkaline Phosphatase (45-117) U/L Troponin I (0-0.045) ng/ml Total Protein (6.4-8.2) gm/dl Albumin (3.4-5.0) gm/dl Globulin (2.5-4.0) gm/dl Albumin/Globulin Ratio (0.9-2) Triglycerides (0-150) mg/dl Cholesterol (0-200) mg/dl LDL Cholesterol, Calc mg/dl VLDL Cholesterol, Calc mg/dl HDL Cholesterol mg/dl Cholesterol/HDL Ratio Specimen Hemolysis 07/22/19 07/22/19 07/22/19 Range/Units 09:53 09:53 11:43 WBC (4.8-10.8) K/uL RBC (4.7-6.1) M/uL Hgb (14.0-18.0) g/dL POC Hgb (14.0-18.0) g/dl Hct (42-52) % POC Hct (42-52) % MCV (80-100) fL MCH (25-34) pg MCHC (32-36) g/dL RDW Std Deviation (36.4-46.3) fL RDW Coeff of Minnie (11.5-14.5) % Plt Count (130-400) K/uL MPV (7.4-10.4) fL Immature Gran % (Auto) % Neut % (Auto) % Lymph % (Auto) % [place] % (Auto) % Eos % (Auto) % Baso % (Auto) % Immature Gran # (Auto) (0.00-0.02) K/uL Neut # (Auto) (1.4-6.5) K/uL Lymph # (Auto) (1.2-3.4) K/uL [place] # (Auto) (0.11-0.59) K/uL Eos # (Auto) (0-0.5) K/uL Baso # (Auto) (0-0.2) K/uL PT 10.2 (9.0-12.0) Seconds INR 1.0 (0.9-1.1) APTT 23.2 (21.0-31.0) Seconds PTT Ratio 0.9 POC Sodium (135-144) mEq/L Sodium 138 140 (136-145) mmol/L POC Potassium (3.3-5.0) mEq/L Potassium 4.3 4.1 (3.5-5.1) mmol/L POC Chloride (101-112) mEq/L Chloride 103 106 (98-107) mmol/L Carbon Dioxide 28 28 (21-32) mmol/L POC Total CO2 (24-31) mEq/l Anion Gap 7.0 6.0 (3-11) POC Anion Gap (16-25) mmol/L POC BUN (7-18) mg/dl BUN 23 H 21 H (7-18) mg/dl Creatinine 1.30 1.27 (0.6-1.4) mg/dl POC Creatinine (0.6-1.3) mg/dl Est Cr Clr Drug Dosing 44.3 45.4 ml/min Est GFR ( Amer) 61.9 63.6 Est GFR (Non-Af Amer) 53.4 54.9 BUN/Creatinine Ratio 17.8 16.7 (10-20) Glucose 185 H 184 H (70-99) mg/dl POC Glucose (70-99) POC Glucose (other) (70-99) mg/dl Estimat Average Glucose mg/dl Hemoglobin A1c (4.5-5.6) % Calcium 9.1 8.3 L (8.5-10.1) mg/dl POC Ioniz Calcium Dewey (1.12-1.32) mmol/l Magnesium 2.1 (1.8-2.4) mg/dl Total Bilirubin 0.3 (0.2-1) mg/dl AST 11 L (15-37) U/L ALT 44 (12-78) U/L Alkaline Phosphatase 140 H (45-117) U/L Troponin I < 0.015 (0-0.045) ng/ml Total Protein 6.6 (6.4-8.2) gm/dl Albumin 3.5 (3.4-5.0) gm/dl Globulin 3.1 (2.5-4.0) gm/dl Albumin/Globulin Ratio 1.1 (0.9-2) Triglycerides (0-150) mg/dl Cholesterol (0-200) mg/dl LDL Cholesterol, Calc mg/dl VLDL Cholesterol, Calc mg/dl HDL Cholesterol mg/dl Cholesterol/HDL Ratio Specimen Hemolysis 07/22/19 07/22/19 07/22/19 Range/Units 11:43 11:48 16:55 WBC (4.8-10.8) K/uL RBC (4.7-6.1) M/uL Hgb (14.0-18.0) g/dL POC Hgb (14.0-18.0) g/dl Hct (42-52) % POC Hct (42-52) % MCV (80-100) fL MCH (25-34) pg MCHC (32-36) g/dL RDW Std Deviation (36.4-46.3) fL RDW Coeff of Minnie (11.5-14.5) % Plt Count (130-400) K/uL MPV (7.4-10.4) fL Immature Gran % (Auto) % Neut % (Auto) % Lymph % (Auto) % [place] % (Auto) % Eos % (Auto) % Baso % (Auto) % Immature Gran # (Auto) (0.00-0.02) K/uL Neut # (Auto) (1.4-6.5) K/uL Lymph # (Auto) (1.2-3.4) K/uL [place] # (Auto) (0.11-0.59) K/uL Eos # (Auto) (0-0.5) K/uL Baso # (Auto) (0-0.2) K/uL PT (9.0-12.0) Seconds INR (0.9-1.1) APTT (21.0-31.0) Seconds PTT Ratio POC Sodium (135-144) mEq/L Sodium (136-145) mmol/L POC Potassium (3.3-5.0) mEq/L Potassium (3.5-5.1) mmol/L POC Chloride (101-112) mEq/L Chloride (98-107) mmol/L Carbon Dioxide (21-32) mmol/L POC Total CO2 (24-31) mEq/l Anion Gap (3-11) POC Anion Gap (16-25) mmol/L POC BUN (7-18) mg/dl BUN (7-18) mg/dl Creatinine (0.6-1.4) mg/dl POC Creatinine (0.6-1.3) mg/dl Est Cr Clr Drug Dosing ml/min Est GFR ( Amer) Est GFR (Non-Af Amer) BUN/Creatinine Ratio (10-20) Glucose (70-99) mg/dl POC Glucose 187 H 146 H (70-99) POC Glucose (other) (70-99) mg/dl Estimat Average Glucose 146 mg/dl Hemoglobin A1c 6.7 H (4.5-5.6) % Calcium (8.5-10.1) mg/dl POC Ioniz Calcium Dewey (1.12-1.32) mmol/l Magnesium (1.8-2.4) mg/dl Total Bilirubin (0.2-1) mg/dl AST (15-37) U/L ALT (12-78) U/L Alkaline Phosphatase (45-117) U/L Troponin I (0-0.045) ng/ml Total Protein (6.4-8.2) gm/dl Albumin (3.4-5.0) gm/dl Globulin (2.5-4.0) gm/dl Albumin/Globulin Ratio (0.9-2) Triglycerides (0-150) mg/dl Cholesterol (0-200) mg/dl LDL Cholesterol, Calc mg/dl VLDL Cholesterol, Calc mg/dl HDL Cholesterol mg/dl Cholesterol/HDL Ratio Specimen Hemolysis 07/22/19 07/23/19 07/23/19 Range/Units 19:55 06:40 06:40 WBC 6.73 (4.8-10.8) K/uL RBC 3.37 L (4.7-6.1) M/uL Hgb 10.7 L (14.0-18.0) g/dL POC Hgb (14.0-18.0) g/dl Hct 31.3 L (42-52) % POC Hct (42-52) % MCV 92.9 (80-100) fL MCH 31.8 (25-34) pg MCHC 34.2 (32-36) g/dL RDW Std Deviation 41.8 (36.4-46.3) fL RDW Coeff of Minnie 12.4 (11.5-14.5) % Plt Count 152 (130-400) K/uL MPV 10.1 (7.4-10.4) fL Immature Gran % (Auto) 0.1 % Neut % (Auto) 71.1 % Lymph % (Auto) 16.8 % [place] % (Auto) 8.3 % Eos % (Auto) 3.6 % Baso % (Auto) 0.1 % Immature Gran # (Auto) 0.01 (0.00-0.02) K/uL Neut # (Auto) 4.78 (1.4-6.5) K/uL Lymph # (Auto) 1.13 L (1.2-3.4) K/uL [place] # (Auto) 0.56 (0.11-0.59) K/uL Eos # (Auto) 0.24 (0-0.5) K/uL Baso # (Auto) 0.01 (0-0.2) K/uL PT (9.0-12.0) Seconds INR (0.9-1.1) APTT (21.0-31.0) Seconds PTT Ratio POC Sodium (135-144) mEq/L Sodium 140 (136-145) mmol/L POC Potassium (3.3-5.0) mEq/L Potassium 4.0 (3.5-5.1) mmol/L POC Chloride (101-112) mEq/L Chloride 107 (98-107) mmol/L Carbon Dioxide 28 (21-32) mmol/L POC Total CO2 (24-31) mEq/l Anion Gap 5.0 (3-11) POC Anion Gap (16-25) mmol/L POC BUN (7-18) mg/dl BUN 16 (7-18) mg/dl Creatinine 1.16 (0.6-1.4) mg/dl POC Creatinine (0.6-1.3) mg/dl Est Cr Clr Drug Dosing 49.7 ml/min Est GFR ( Amer) 71.0 Est GFR (Non-Af Amer) 61.3 BUN/Creatinine Ratio 13.9 (10-20) Glucose 147 H (70-99) mg/dl POC Glucose 172 H (70-99) POC Glucose (other) (70-99) mg/dl Estimat Average Glucose mg/dl Hemoglobin A1c (4.5-5.6) % Calcium 8.8 (8.5-10.1) mg/dl POC Ioniz Calcium Dewey (1.12-1.32) mmol/l Magnesium (1.8-2.4) mg/dl Total Bilirubin (0.2-1) mg/dl AST (15-37) U/L ALT (12-78) U/L Alkaline Phosphatase (45-117) U/L Troponin I (0-0.045) ng/ml Total Protein (6.4-8.2) gm/dl Albumin (3.4-5.0) gm/dl Globulin (2.5-4.0) gm/dl Albumin/Globulin Ratio (0.9-2) Triglycerides 144 (0-150) mg/dl Cholesterol 187 (0-200) mg/dl LDL Cholesterol, Calc 97 mg/dl VLDL Cholesterol, Calc 29 mg/dl HDL Cholesterol 61 mg/dl Cholesterol/HDL Ratio 3 Specimen Hemolysis 07/23/19 Range/Units 07:18 WBC (4.8-10.8) K/uL RBC (4.7-6.1) M/uL Hgb (14.0-18.0) g/dL POC Hgb (14.0-18.0) g/dl Hct (42-52) % POC Hct (42-52) % MCV (80-100) fL MCH (25-34) pg MCHC (32-36) g/dL RDW Std Deviation (36.4-46.3) fL RDW Coeff of Minnie (11.5-14.5) % Plt Count (130-400) K/uL MPV (7.4-10.4) fL Immature Gran % (Auto) % Neut % (Auto) % Lymph % (Auto) % [place] % (Auto) % Eos % (Auto) % Baso % (Auto) % Immature Gran # (Auto) (0.00-0.02) K/uL Neut # (Auto) (1.4-6.5) K/uL Lymph # (Auto) (1.2-3.4) K/uL [place] # (Auto) (0.11-0.59) K/uL Eos # (Auto) (0-0.5) K/uL Baso # (Auto) (0-0.2) K/uL PT (9.0-12.0) Seconds INR (0.9-1.1) APTT (21.0-31.0) Seconds PTT Ratio POC Sodium (135-144) mEq/L Sodium (136-145) mmol/L POC Potassium (3.3-5.0) mEq/L Potassium (3.5-5.1) mmol/L POC Chloride (101-112) mEq/L Chloride (98-107) mmol/L Carbon Dioxide (21-32) mmol/L POC Total CO2 (24-31) mEq/l Anion Gap (3-11) POC Anion Gap (16-25) mmol/L POC BUN (7-18) mg/dl BUN (7-18) mg/dl Creatinine (0.6-1.4) mg/dl POC Creatinine (0.6-1.3) mg/dl Est Cr Clr Drug Dosing ml/min Est GFR ( Amer) Est GFR (Non-Af Amer) BUN/Creatinine Ratio (10-20) Glucose (70-99) mg/dl POC Glucose 155 H (70-99) POC Glucose (other) (70-99) mg/dl Estimat Average Glucose mg/dl Hemoglobin A1c (4.5-5.6) % Calcium (8.5-10.1) mg/dl POC Ioniz Calcium Dewey (1.12-1.32) mmol/l Magnesium (1.8-2.4) mg/dl Total Bilirubin (0.2-1) mg/dl AST (15-37) U/L ALT (12-78) U/L Alkaline Phosphatase (45-117) U/L Troponin I (0-0.045) ng/ml Total Protein (6.4-8.2) gm/dl Albumin (3.4-5.0) gm/dl Globulin (2.5-4.0) gm/dl Albumin/Globulin Ratio (0.9-2) Triglycerides (0-150) mg/dl Cholesterol (0-200) mg/dl LDL Cholesterol, Calc mg/dl VLDL Cholesterol, Calc mg/dl HDL Cholesterol mg/dl Cholesterol/HDL Ratio Specimen Hemolysis Imaging Data Radiologist's Impression: Radiology results as stated below per my review and the radiologist's interpretation: CT head/brain wo con CLINICAL HISTORY: 73 years-old Male presenting with Stroke evaluation, left- sided weakness. TECHNIQUE: Multidetector CT imaging of the head was performed without the use of intravenous contrast. IV contrast: None. One or more dose lowering techniques were used consistent with the principles of ALARA (as low as reasonably achievable), including automatic exposure control, mA or kV adjustment to individual patient size, and/or use of iterative reconstruction. COMPARISON: Correlation made to MRI brain from 2017. CT DOSE (mGy.cm): The estimated cumulative dose is 1076.28. FINDINGS: Yarding Supervisor topogram: The patient is edentulous. Proportional ventricular and sulcal prominence, likely age-related parenchymal volume loss. No hemorrhage. Few old lacunar infarct suggested in the basal ganglia. No acute territorial infarct. No mass effect or midline shift. No extra-axial fluid collection. Extensive mucosal thickening in the paranasal sinuses. Calvarium intact. IMPRESSION: 1. No acute intracranial abnormality. Electronically signed by: Axel Crabajal M.D. 07/22/2019 9:[address] angio head w con CLINICAL HISTORY: 73 years-old Male presenting with Pt c/o weakness. TECHNIQUE: Multidetector CT angiography of the head was performed after the administration of intravenous contrast. 3-D volumetric and/or maximum intensity projection (MIP) images were subsequently reconstructed for review. IV contrast: 120 mL of Optiray 320. One or more dose lowering techniques were used consistent with the principles of ALARA (as low as reasonably achievable), including automatic exposure control, mA or kV adjustment to individual patient size, and/or use of iterative reconstruction. COMPARISON: None. CT DOSE (mGy.cm): The estimated cumulative dose is 1076.28. FINDINGS: Yarding Supervisor topogram: Unremarkable. Anterior circulation: Atherosclerosis of the cavernous segments of the internal carotid arteries. Intracranial portions of the internal carotid arteries patent to the level of the termini. Anterior cerebral arteries (BARON) patent. The A1 segment of the left BARON is hypoplastic. Middle cerebral arteries patent. Anterior communicating artery patent. Posterior circulation: Left dominant vertebral artery. Intradural portions of the vertebral arteries patent. Posterior inferior cerebellar arteries patent. Basilar artery patent. Anterior inferior cerebellar arteries poorly visualized. Superior cerebellar arteries patent. Focal vessel cut off of the distal pubic one segment of the right posterior cerebral artery (REAL ESTATE ATTORNEY). Left REAL ESTATE ATTORNEY patent. Left posterior communicating artery (P-comm) patent. Right P-comm hypoplastic or aplastic. Dural venous sinuses: Patent. Other: Allowing for the phase of contrast, brain parenchyma within normal limits. Extensive coastal thickening in the paranasal sinuses with evidence of chronic sinusitis. IMPRESSION: 1. 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 Notably, the right posterior communicating artery is hypoplastic or aplastic. The report will be called/faxed according to standard departmental protocol. Electronically signed by: Axel Carbajal M.D. 07/22/2019 9:[address] angio neck with con CLINICAL HISTORY: 73 years-old Male presenting with Pt c/o weakness, stroke alert. TECHNIQUE: Multidetector CT angiography of the neck was performed after the administration of intravenous contrast. 3-D volumetric and/or maximum intensity projection (MIP) images were subsequently reconstructed for review. IV contrast: 120 mL of Optiray 320. One or more dose lowering techniques were used consistent with the principles of ALARA (as low as reasonably achievable), including automatic exposure control, mA or kV adjustment to individual patient size, and/or use of iterative reconstruction. Stenosis measurements were based on N ASCET-like criteria (distal lumen diameter as the denominator for stenosis measurement). COMPARISON: None. CT DOSE (mGy.cm): The estimated cumulative dose is 1076.28 mGy.cm. FINDINGS: Yarding Supervisor topogram: Unremarkable. Aortic arch: Atherosclerosis of the three-vessel aortic arch with patent origins of the branch vessels. Innominate artery: Noncalcified atherosclerotic plaque resulting in 50% sten osis. Right subclavian artery: Patent. Right common carotid artery: Noncalcified atherosclerotic plaque resulting in less than 25% stenosis of the distal portion. Right internal and external carotid arteries: Calcified and noncalcified atherosclerotic plaque at the carotid bifurcation. Over 90% stenosis of the origin of the external carotid artery. Less than 50% stenosis of the proximal ICA beyond the bifurcation. Left common carotid artery: Less than 25% stenosis of the origin due to noncal cified atherosclerotic plaque. Left internal and external carotid arteries: Significant noncalcified atherosclerotic plaque at the bifurcation with over 90% stenosis of the origin of the internal carotid artery. Origin of the external carotid artery widely patent. Remainder of the ICA patent. Left subclavian artery: Not calcified atherosclerotic plaque with less than 25% stenosis of the origin and proximal course of the left subclavian artery. Vertebral arteries: Left dominant vertebral artery. Origin of the left vertebral artery is occluded as well as the proximal course. Reconstitution of flow within the artery within the transverse foramen at C6-7 with irregularity of the artery until the level of the mid cervical spine. Widely patent right vertebral artery in the upper cervical spine through the intradural portion. Left vertebral artery widely patent. Other: Limited intracranial evaluation within normal limits. Extensive paranasal sinus mucosal thickening. Soft tissues of the neck normal. Degenerative changes of the cervical spine. Extensive emphysema at the apices. IMPRESSION: 1. 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 This could suggest either extensive atherosclerosis or dissection. Notably, the left vertebral artery is dominant rather than the right and the right vertebral artery is widely patent in the upper cervical spine through the intradural portion. These findings may be on an acute or chronic basis. 2. 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 3. 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 4. Lesser degrees of stenoses from atherosclerotic plaque as above. The report will be called/faxed according to standard departmental protocol. Electronically signed by: Axel Carbajal M.D. 07/22/2019 9:48 AM XR chest 1V portable CLINICAL HISTORY: 73 years-old Male presenting with Pt c/o weakness. TECHNIQUE: Portable upright AP view of the chest was obtained. COMPARISON: None. FINDINGS: Cardiac silhouette mildly enlarged. Comment epicardial fat pad suggested along the cardiac apex. No focal opacity. No large effusion or pneumothorax. Degenerative changes of the thoracic spine. Upper abdomen normal. IMPRESSION: 1. Mild cardiomegaly. No other convincing evidence of acute cardiopulmonary disease. Electronically signed by: Axel Carbajal M.D. 07/22/2019 10:33 AM ECG Data Attestation: I personally reviewed and interpreted this ECG as follows: Indication: weakness Rate (beats per minute): 70 Rhythm: normal sinus Findings: no PAC, no PVC, no ST depression, no ST elevation and no ectopy Blood Pressure Blood Pressure Findings: Elevated blood pressure Blood Pressure Disposition: further management by hospitalist [facility] Narrative This is a 73-year-old male who presents emergency department with left-sided weakness. Due to the nature and onset of the patient's symptoms a stroke alert was initiated. I did consider giving this patient TPA however he is recovering his loss of deficits and after discussing the case with the on-call neurologist the decision was made not to give TPA. The patient was given magnesium as well as aspirin here in the emergency department. Chiquis patient was then discussed with the hospitalist who agreed to admit the patient. Patient and family were in agreement with the treatment plan. Impression & Plan Left-sided weakness Critical Care Time Critical Care Time: Yes Total Critical Care Time: 30 I have personally spent greater than 30 minutes of critical care time in the direct management of this patient. This includes bedside care, interpretation of diagnostic studies, and testing, discussion with consultants, patient, and family members, and other required patient management activities. This 30 minutes is in excess of all separately billable procedures. Discharge Plan Visit Data *Final* Discharge Date/Time: 07/22/19 11:01 Stated Complaint: stroke alert ED Provider: Sundeep Argueta Discharge Problem: Left-sided weakness Patient Disposition: Admitted As Inpatient Discharge Instructions Interventions: ED Discharge Assessment Last Done: 07/22/19 11:01 The scribe's documentation has been prepared under my direction and personally reviewed by me in its entirety. I confirm that the note above accurately reflects all work, treatment, procedures, and medical decision making performed by me.
[2019-07-24 06:53] LABS: Basophils # (auto) 0.02 K/uL (0-0.2); Basophils % (auto) 0.3 %; Eosinophils # (auto) 0.24 K/uL (0-0.5); Eosinophils % (auto) 3.3 %; Hematocrit (blood only) 32.8 % (42-52); Hemoglobin 11.3 g/dL (14.0-18.0); Immature Granulocytes # (auto) 0.01 K/uL (0.00-0.02); Immature Granulocytes % (auto) 0.1 %; Lymphocytes # (auto) 1.44 K/uL (1.2-3.4); Lymphocytes % (auto) 19.6 %; Mean Corpuscular Hemoglobin 31.9 pg (25-34); Mean Corpuscular Hgb Conc 34.5 g/dL (32-36); Mean Corpuscular Volume 92.7 fL (80-100); Mean Platelet Volume 9.7 fL (7.4-10.4); Monocytes # (auto) 0.64 K/uL (0.11-0.59); Monocytes % (auto) 8.7 %; Platelet Count 163 K/uL (130-400); RDW Coefficient of Variation 12.2 % (11.5-14.5); RDW Standard Deviation 41.4 fL (36.4-46.3); Red Blood Count 3.54 M/uL (4.7-6.1); White Blood Count 7.35 K/uL (4.8-10.8)
[2019-07-24 07:29] LABS: BUN Creatinine Ratio 13.5 (10-20); Calcium 8.8 mg/dl (8.5-10.1); Est GFR (African American) 73.3; Est GFR (Non-African American) 63.2; Potassium 3.7 mmol/L (3.5-5.1)
[2019-07-24] MEDS: ENOXAPARIN INJ 40 MG/0.4 ML SYR SQ SCH (08:23)
[2019-07-24] MEDS: CLOPIDOGREL BISULFATE 75 MG TAB PO SCH (08:24)
[2019-07-24] MEDS: ATORVASTATIN 40 MG TAB PO SCH (08:24)
[2019-07-24] MEDS: ASPIRIN 81 MG ECTAB PO SCH (08:24)
[2019-07-24] MEDS: INSULIN GLARGINE SOLOSTAR 100 UNITS/ML 3 ML PEN SC SCH ×2 (08:25→21:11)
[2019-07-24] MEDS: INSULIN ASPART 100 UNITS/ML 3 ML PEN SC SCH ×4 (08:27→21:12)
[2019-07-24] MEDS: AMLODIPINE BESYLATE 5 MG TAB PO SCH (08:30)
--- NOTE | 2019-07-24 15:23 | Hospitalist Progress Note ---
Date of Service July 24, 2019 Assessment & Plan (1) Stroke: MRI revealed evidence of stroke. Echocardiogram reveals EF 55 to 60% with no evidence of ASD. No evidence of arrhythmia on telemetry overnight. DAPT and Lipitor for secondary prevention. PT/OT evals pending; will watch for this for assistance in disposition. (2) HTN (hypertension): Not on antihypertensives at home. As we are greater than 48 hours post stroke will add Norvasc 5 mg as monotherapy for gentle reduction of blood pressure. Will titrate as needed. (3) DMII (diabetes mellitus, type 2): A1C reflects good control, Continue Lantus and insulin sliding scale with carb coverage. (4) Hyperlipidemia: Cont Lipitor (5) Sacral decubitus ulcer, stage II: OPTi foam daily pending wound care nurse evaluation and treatment. Turn every 2. (6) DVT prophylaxis: Lovenox Full code Dispo-continue telemetry monitoring. Cari Lozada, [facility] Hospitalist Subjective Doing well today, reports some improvement in left arm control and leg control. Tolerating food well. Has not ambulated per his report Review of Systems Review of Systems: All systems reviewed & are unremarkable except as noted in HPI & below Physical Exam Physical Exam: CONSTITUTIONAL: WNWD, vitals as above, generally well- appearing EYES: EOMI bilaterally, PERRL, normal conjunctivae, no scleral icterus ENT: oropharynx clear, MMM RESPIRATORY: clear to auscultation bilaterally with good air movement bilaterally, no wheezes, normal respiratory effort CARDIOVASCULAR: regular rate and rhythm, S1 and 2 heard without murmurs, gallops or rubs, no JVD, no peripheral edema GASTROINTESTINAL: normal bowel sounds, soft, nontender, nondistended MUSCULOSKELETAL: LUE 3/5 biceps/triceps but not able to direct his movements well, fire supervisor strength intact on the right, weak on the left. LLE has 5/5 strength but difficult to direct his voluntary movements, RUE/RLE 5/5 intact, head is normocephalic and atraumatic SKIN: warm and dry, sacral breakdown that is <1cm intergluteal fold with surrounding nonblanchable erythema-Stage II NEUROLOGIC: L facial palsy has resolved, no dysarthria. No other cranial nerve deficits noted, no sensory deficit, normal cognition, normal speech, no tremor. PSYCHIATRIC: alert cooperative and oriented to person, place and time. Results & Data Vital Signs (Past 12 Hours) Vital Signs Temp Pulse Pulse Resp BP Pulse Ox 07/24/19 15:12 37.1 C 51 L 24 159/65 H 95 07/24/19 11:52 36.8 C 54 L 16 157/50 H 96 07/24/19 09:56 52 L 07/24/19 07:26 36.9 C 78 18 173/64 H 98 Laboratory Results Short CBC 07/24/19 Range/Units 06:26 WBC 7.35 (4.8-10.8) K/uL Hgb 11.3 L (14.0-18.0) g/dL Hct 32.8 L (42-52) % Plt Count 163 (130-400) K/uL BMP 07/24/19 06:26 Sodium 142 Potassium 3.7 Chloride 108 H Carbon Dioxide 28 BUN 15 Creatinine 1.13 Glucose 115 H Calcium 8.8 Medications Administered Current Inpatient Medications Acetaminophen (Tylenol) 650 mg PO Q6H PRN PRN Reason: Fever Stop: 08/21/19 19:50 Albuterol (Ventolin Hfa) 2 puffs INH Q6H PRN PRN Reason: sob or wheezing Stop: 08/21/19 11:38 Amlodipine Besylate (Norvasc) 5 mg PO [facility] Stop: 08/23/19 08:59 Last Admin: 07/24/19 08:30 Dose: 5 mg Documented by: Aspirin (Ecotrin Ectab) 81 mg PO [facility] Stop: 08/22/19 08:59 Last Admin: 07/24/19 08:24 Dose: 81 mg Documented by: Atorvastatin Calcium (Lipitor) 80 mg PO [facility] Stop: 08/23/19 08:59 Last Admin: 07/24/19 08:24 Dose: 80 mg Documented by: Clopidogrel Bisulfate (Plavix) 75 mg PO [facility] Stop: 08/22/19 14:59 Last Admin: 07/24/19 08:24 Dose: 75 mg Documented by: Dextrose (Dextrose 50%) 25 - 50 ml IV UD PRN; Protocol PRN Reason: Hypoglycemia Protocol Stop: 08/21/19 11:38 Enoxaparin Sodium (Lovenox) 40 mg SQ [facility] Stop: 08/23/19 08:59 Last Admin: 07/24/19 08:23 Dose: 40 mg Documented by: Glucagon (Glucagen) 1 mg SQ UD PRN; Protocol PRN Reason: Hypoglycemia Protocol Stop: 08/21/19 11:38 Glucose (Dex4 Glucose) 4 - 8 tabs PO UD PRN; Protocol PRN Reason: Hypoglycemia Protocol Stop: 08/21/19 11:38 Glucose (Glucose 40%) 15 - 30 gm PO UD PRN; Protocol PRN Reason: Hypoglycemia Protocol Stop: 08/21/19 11:38 Insulin Aspart (Novolog Flexpen) 0 units SC ACHS [facility] Stop: 08/21/19 11:38 Last Admin: 07/24/19 12:26 Dose: Not Given Documented by: Insulin Glargine (Lantus Solostar Pen) 10 units SC BID [facility] Stop: 08/21/19 20:59 Last Admin: 07/24/19 08:25 Dose: 10 units Documented by: Ioversol (Optiray 320 125ml) 120 ml IV ONCE PRN PRN Reason: Interaction Checking Stop: 07/26/19 09:34 Last Admin: 07/22/19 09:36 Dose: 120 ml Documented by: Miscellaneous (Carbohydrates For Hypoglycemia) 15 - 30 gm PO UD PRN PRN Reason: Hypoglycemia Treatment Stop: 08/21/19 11:38 Miscellaneous Information (Pharmacist Discharge Med Rec Consult) 1 ea N/A UD PRN PRN Reason: Consult Stop: 08/21/19 11:38
[2019-07-25 07:04] LABS: Basophils # (auto) 0.01 K/uL (0-0.2); Basophils % (auto) 0.2 %; Eosinophils # (auto) 0.24 K/uL (0-0.5); Eosinophils % (auto) 4.1 %; Hematocrit (blood only) 31.6 % (42-52); Immature Granulocytes # (auto) 0.01 K/uL (0.00-0.02); Immature Granulocytes % (auto) 0.2 %; Lymphocytes # (auto) 1.24 K/uL (1.2-3.4); Lymphocytes % (auto) 21.2 %; Mean Corpuscular Hemoglobin 31.6 pg (25-34); Mean Corpuscular Hgb Conc 34.8 g/dL (32-36); Mean Corpuscular Volume 90.8 fL (80-100); Mean Platelet Volume 9.7 fL (7.4-10.4); Monocytes # (auto) 0.61 K/uL (0.11-0.59); Monocytes % (auto) 10.4 %; Neutrophils # (auto) 3.73 K/uL (1.4-6.5); Neutrophils % (auto) 63.9 %; Platelet Count 165 K/uL (130-400); RDW Coefficient of Variation 12.2 % (11.5-14.5); RDW Standard Deviation 40.3 fL (36.4-46.3); Red Blood Count 3.48 M/uL (4.7-6.1); White Blood Count 5.84 K/uL (4.8-10.8)
[2019-07-25 07:34] LABS: BUN Creatinine Ratio 15.8 (10-20); Calcium 8.7 mg/dl (8.5-10.1); Creatinine Clr Calc Pharmacy 48.4 ml/min; Est GFR (African American) 68.8; Est GFR (Non-African American) 59.4; Potassium 3.5 mmol/L (3.5-5.1)
[2019-07-25] MEDS: AMLODIPINE BESYLATE 5 MG TAB PO SCH (07:46)
[2019-07-25] MEDS: CLOPIDOGREL BISULFATE 75 MG TAB PO SCH (07:46)
[2019-07-25] MEDS: ATORVASTATIN 40 MG TAB PO SCH (07:46)
[2019-07-25] MEDS: ASPIRIN 81 MG ECTAB PO SCH (07:46)
[2019-07-25] MEDS: INSULIN GLARGINE SOLOSTAR 100 UNITS/ML 3 ML PEN SC SCH ×2 (07:47→20:52)
[2019-07-25] MEDS: INSULIN ASPART 100 UNITS/ML 3 ML PEN SC SCH ×4 (07:48→20:53)
[2019-07-25] MEDS: ENOXAPARIN INJ 40 MG/0.4 ML SYR SQ SCH (07:59)
[2019-07-25] MEDS ORDERED: ENOXAPARIN INJ 40 MG/0.4 ML SYR SQ SCH (09:00)
[2019-07-25] MEDS ORDERED: AMLODIPINE BESYLATE 5 MG TAB PO ONE (11:15)
--- NOTE | 2019-07-25 17:28 | Hospitalist Progress Note ---
Date of Service July 25, 2019 Assessment & Plan (1) Stroke: MRI revealed evidence of stroke. Echocardiogram reveals EF 55 to 60% with no evidence of ASD. Fleeting few seconds of atrial tachycardia without fib or flutter noted. DAPT and Lipitor for secondary prevention. PT/OT evaluation reveals need for SNF, auth has been processed. Needs evaluation of this rhythm by the Rn Lactation Consultant prior to discharge. Consult was placed. (2) HTN (hypertension): Stop Norvasc, start HCTZ. BMP in two weeks. (3) DMII (diabetes mellitus, type 2): A1C reflects good control, Continue Lantus and insulin sliding scale with carb coverage. Transition to home meds on discharge. (4) Hyperlipidemia: Cont Lipitor at increased dose as above. (5) Sacral decubitus ulcer, stage II: OPTi foam daily pending wound care nurse evaluation and treatment. Turn every 2. (6) DVT prophylaxis: Lovenox Full code Dispo-continue telemetry monitoring. DC to SNF once medically cleared. Cari Lozada, [facility] Hospitalist Subjective Doing well, feels he is having some improvement in symptoms overall. Tolerating food. Overnight had fleeting atrial tachycardia on telemetry that was limited. Pt denies any symptoms. Review of Systems Review of Systems: All systems reviewed & are unremarkable except as noted in HPI & below Physical Exam Physical Exam: CONSTITUTIONAL: WNWD, vitals as above, generally well- appearing EYES: EOMI bilaterally, pupils are equal and round bilaterally, normal conjunctivae, no scleral icterus ENT: oropharynx clear, MMM RESPIRATORY: clear to auscultation bilaterally with good air movement bilaterally, no wheezes, normal respiratory effort CARDIOVASCULAR: regular rate and rhythm, S1 and 2 heard without murmurs, gallops or rubs, no JVD, no peripheral edema GASTROINTESTINAL: normal bowel sounds, soft, nontender, nondistended MUSCULOSKELETAL: LUE 3/5 biceps/triceps but not able to direct his movements well, secretarial stenographer strength intact on the right, weak on the left. LLE has 5/5 strength but difficult to direct his voluntary movements, RUE/RLE 5/5 intact, head is normocephalic and atraumatic SKIN: warm and dry, sacral breakdown that is <1cm intergluteal fold with surrounding nonblanchable erythema-Stage II NEUROLOGIC: L facial palsy has resolved, no dysarthria. No other cranial nerve deficits noted, no sensory deficit, normal cognition, normal speech, no tremor. PSYCHIATRIC: alert cooperative and oriented to person, place and time. Results & Data Vital Signs (Past 12 Hours) Vital Signs Temp Pulse Pulse Resp BP Pulse Ox 07/25/19 14:56 36.6 C 86 18 160/60 H 98 07/25/19 11:39 37.0 C 50 L 20 152/65 H 97 07/25/19 08:00 50 L 07/25/19 07:12 37.0 C 48 L 18 155/65 H 96 Laboratory Results Short CBC 07/25/19 Range/Units 06:45 WBC 5.84 (4.8-10.8) K/uL Hgb 11.0 L (14.0-18.0) g/dL Hct 31.6 L (42-52) % Plt Count 165 (130-400) K/uL BMP 07/25/19 06:45 Sodium 141 Potassium 3.5 Chloride 106 Carbon Dioxide 28 BUN 19 H Creatinine 1.19 Glucose 94 Calcium 8.7 Medications Administered Current Inpatient Medications Acetaminophen (Tylenol) 650 mg PO Q6H PRN PRN Reason: Fever Stop: 08/21/19 19:50 Albuterol (Ventolin Hfa) 2 puffs INH Q6H PRN PRN Reason: sob or wheezing Stop: 08/21/19 11:38 Amlodipine Besylate (Norvasc) 10 mg PO [facility] Stop: 08/25/19 08:59 Aspirin (Ecotrin Ectab) 81 mg PO [facility] Stop: 08/22/19 08:59 Last Admin: 07/25/19 07:46 Dose: 81 mg Documented by: Atorvastatin Cal[facility] (Lipitor) [facility] [place] [facility] [place]: 08/23/19 08:59 Last Admin: 07/25/19 07:46 Dose: 80 mg Documented by: Clopidogrel Bisulfate (Plavix) 75 [facility] [place] [facility] [place] 08/22/19 14:59 Last Admin: 07/25/19 07:46 Dose: 75 mg Documented by: Dextrose (Dextrose 50%) 25 - 50 ml IV UD PRN; Protocol PRN Reason: Hypoglycemia Protocol Stop: 08/21/19 11:38 Enoxaparin Sodium (Lovenox) 40 mg S[facility] [place] [facility] [place] 08/23/19 08:59 Last Admin: 07/25/19 07:59 Dose: 40 mg Documented by: Glucagon (Glucagen) 1 mg SQ UD PRN; Protocol PRN Reason: Hypoglycemia Protocol Stop: 08/21/19 11:38 Glucose (Dex4 Glucose) 4 - 8 tabs PO UD PRN; Protocol PRN Reason: Hypoglycemia Protocol Stop: 08/21/19 11:38 Glucose (Glucose 40%) 15 - 30 gm PO UD PRN; Protocol PRN Reason: Hypoglycemia Protocol Stop: 08/21/19 11:38 Insulin Aspart (Novolog Flexpen) 0 units SC ACHS [facility] Stop: 08/21/19 11:38 Last Admin: 07/25/19 17:18 Dose: Not Given Documented by: Insulin Glargine (Lantus Solostar Pen) 10 units SC BID [facility] Stop: 08/21/19 20:59 Last Admin: 07/25/19 07:47 Dose: 10 units Documented by: Ioversol (Optiray 320 125ml) 120 ml IV ONCE PRN PRN Reason: Interaction Checking Stop: 07/26/19 09:34 Last Admin: 07/22/19 09:36 Dose: 120 ml Documented by: Miscellaneous (Carbohydrates For Hypoglycemia) 15 - 30 gm PO UD PRN PRN Reason: Hypoglycemia Treatment Stop: 08/21/19 11:38 Miscellaneous Information (Pharmacist Discharge Med Rec Consult) 1 ea N/A UD PRN PRN Reason: Consult Stop: 08/21/19 11:38
[2019-07-25] MEDS ORDERED: hydroCHLOROthiazide 25 MG TAB PO SCH (17:35)
[2019-07-26] MEDS ORDERED: POTASSIUM CHLORIDE 20 MEQ TABCR PO STA ×3 (02:32→07:16)
[2019-07-26] MEDS ORDERED: MAGNESIUM SULFATE / D5W 1 GM/100 ML BAG IV ONE (02:32)
[2019-07-26] MEDS ORDERED: LEVALBUTEROL TARTRATE 15 GM HFA.AER.AD INH PRN (02:34)
[2019-07-26 03:16] LABS: Albumin Level 3.4 gm/dl (3.4-5.0); BUN Creatinine Ratio 16.6 (10-20); Calcium 8.6 mg/dl (8.5-10.1); Creatinine Clr Calc Pharmacy 50.1 ml/min; Est GFR (African American) 71.7; Est GFR (Non-African American) 61.9; Magnesium 2.3 mg/dl (1.8-2.4); Potassium 3.3 mmol/L (3.5-5.1)
[2019-07-26 03:27] LABS: Albumin Globulin Ratio 1.1 (0.9-2); Bilirubin,Total 0.6 mg/dl (0.2-1); Globulin 3.2 gm/dl (2.5-4.0); Thyroid Stimulating Hormone 0.803 uIu/ml (0.300-4.500); Total Protein 6.6 gm/dl (6.4-8.2)
--- NOTE | 2019-07-26 06:11 | Hospitalist Progress Note ---
Date of Service July 26, 2019 Subjective Made aware by RN of transient SVT episodes. Cardiology to be consulted in a.m. as per provider note. Patient comfortable. Currently bradycardic. SBP 1 60-1 80s. AP Uncontrolled hypertension Hypokalemia secondary to diuretic Rx Episodic SVT Hold HCTZ given hypokalemia Initiate lisinopril. (appropriate for DM, stroke comorbidities) Results & Data Vital Signs (Past 12 Hours) Vital Signs Temp Pulse Pulse Resp BP Pulse Ox 07/26/19 04:21 37.0 C 52 L 18 181/71 H 94 07/26/19 02:26 36.9 C 55 L 14 163/67 H 97 07/26/19 00:00 48 L 07/25/19 23:58 37.0 C 50 L 18 173/62 H 92 07/25/19 20:07 37.0 C 48 L 18 147/62 H 96
[2019-07-26] MEDS: LISINOPRIL 2.5 MG TAB PO SCH (06:18)
[2019-07-26] MEDS: INSULIN ASPART 100 UNITS/ML 3 ML PEN SC SCH ×2 (08:09→12:13)
[2019-07-26] MEDS: ASPIRIN 81 MG ECTAB PO SCH (08:10)
[2019-07-26] MEDS: CLOPIDOGREL BISULFATE 75 MG TAB PO SCH (08:11)
[2019-07-26] MEDS: INSULIN GLARGINE SOLOSTAR 100 UNITS/ML 3 ML PEN SC SCH (08:11)
[2019-07-26] MEDS: ENOXAPARIN INJ 40 MG/0.4 ML SYR SQ SCH (08:11)
[2019-07-26] MEDS: ATORVASTATIN 40 MG TAB PO SCH (08:11)
[2019-07-26] MEDS ORDERED: AMLODIPINE BESYLATE 5 MG TAB PO SCH (09:00)
[2019-07-26] MEDS ORDERED: POLYETHYLENE (MIRALAX) 17 GM PACK PO PRN (14:02)
[2019-07-26] MEDS ORDERED: MAGNESIUM HYDROXIDE SUSP 30 ML UDC PO STA (14:05)
--- NOTE | 2019-07-26 14:49 | Cardiology Consultation ---
Date of Consultation July 26, 2019 Assessment & Plan (1) Atrial tachycardia: several episodes of non sustained atrial tach on monitor. Likely incidental findings. No symptoms. Would not initiate beta ambrocio due to resting bradycardia. outpatient ZIO monitor recommended for 2 weeks to r/o afib given stroke. For now, continue ASA/Plavix per neurology recommendations. (2) Bradycardia: He is asymptomatic. No pauses. no indication for pacemaker Avoid AV cherrie blocking agents. 2 Week ZIO monitor (3) HTN (hypertension): allow permissible hypertension (4) Stenosis of carotid artery: ASA, Plavix, statin Vascular surgery consult recommended as outpatient (5) Acute right MCA stroke: (6) Hyperlipidemia: Increase atorvastatin to 80 mg Supervising Physician Co-Signing Physician Notes Patient seen and examined with Belinda Kelsey PA-C. Agree with findings and assessment as above. Asymptomatic from cardiac standpoint. Paroxysmal atrial tach on monitor, no episodes of atrial fibrillation or flutter. Relative bradycardia at rest. No med changes. Zio patch as outpatient. General: Awake, alert and oriented x 3. No acute distress. HEENT: Normocephalic, atraumatic. Pupils equal, round and reactive to light and accommodation. Extraocular muscles are intact. Anicteric sclera. Moist mucous membranes. Neck: No JVD. No bruit. Cardiovascular: Regular. Positive S-4. Normal S-1 and S-2. No S-3. No murmurs or rubs. Pulmonary: Clear to auscultation B/L. No rales, rhonchi or wheezing Abdomen: Bowel sounds x 4, soft. No rebound, guarding or tenderness. No organomegaly. Extremities: No clubbing, cyanosis or edema. +2 pedal pulses bilaterally. Skin: Warm and dry. History of Present Illness Reason for Consultation: Paroxysmal atrial tachycardia, bradycardia; recent CVA Requesting Physician: Dr. Lozada Attending Physician: Dr. Hardy History of Present Illness Patient is a 73-year-old male with no known cardiovascular history. Patient is a somewhat poor historian and Most of his past medical history was obtained by admission H&P. there is no information in [facility]. Patient denies a cardiovascular history including prior stroke, vascular disease, [place], coronary artery disease, arrhythmia, or valvular heart disease. Allergies Allergy/AdvReac Type Severity Reaction Status Date / Time No Known Allergies Allergy Unverified 07/22/19 11:11 Home Medications Home Medications Medication Instructions Recorded Confirmed Type Effexor XR 150 mg PO DAILY 07/22/19 07/22/19 History albuterol sulfate 2 puff INHALATION Q6H PRN 07/22/19 07/22/19 History atorvastatin [Lipitor] 40 mg PO DAILY 07/22/19 07/22/19 History metformin 1,000 mg PO BID 07/22/19 07/22/19 History trazodone 50 mg PO HS PRN 07/22/19 07/22/19 History aspirin [Ecotrin Low Strength] 81 mg PO QAM #90 tab 07/25/19 Rx atorvastatin 80 mg PO DAILY #30 tab 07/25/19 Rx clopidogrel 75 mg PO QAM #30 tab 07/25/19 Rx Patient History Medical History Depression Diabetes H/O tobacco use, presenting hazards to health Hypertension Insomnia Family History Family/Other Diabetes Mother Heart disease Social History Preferred Language: Palauan Communication Ability: Effective 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 A+Ox3. HEENT: Normocephalic. Atraumatic. PERRL. EOMI. Conjunctiva and sclera clear. NECK: No carotid bruits. No JVD. Carotid upstrokes are brisk. Heart: RRR. S1 and S2 noted without murmur, rubs, gallops. PMI non displaced. Lungs: Clear to auscultation and percussion. No wheezes, rhonchi, rales. Abdomen: Normal bowel sounds. Soft. Nontender. No masses or organomegaly. No abdominal bruits. Extremities: No edema. No clubbing or cyanosis. Pulses: radial=2/4, posterior tibial=2/4, dorsalis pedis = 2/4. NEURO: No focal deficits. PSYCH: Normal. Results & Data Vital Signs (Past 12 Hours) Vital Signs Temp Pulse Pulse Resp BP Pulse Ox 07/26/19 11:35 36.9 C 55 L 18 135/64 98 07/26/19 09:00 45 L 07/26/19 07:14 36.8 C 51 L 18 175/59 H 96 07/26/19 04:21 37.0 C 52 L 18 181/71 H 94 Laboratory Results 07/26/19 07/26/19 07/26/19 Range/Units 11:44 07:41 02:48 Sodium 140 (136-145) mmol/L Potassium 3.3 L (3.5-5.1) mmol/L Chloride 105 (98-107) mmol/L Carbon Dioxide 27 (21-32) mmol/L Anion Gap 8.0 (3-11) BUN 19 H (7-18) mg/dl Creatinine 1.15 (0.6-1.4) mg/dl Est Cr Clr Drug Dosing 50.1 ml/min Est GFR ( Amer) 71.7 Est GFR (Non-Af Amer) 61.9 BUN/Creatinine Ratio 16.6 (10-20) Glucose 112 H (70-99) mg/dl POC Glucose 150 H 114 H (70-99) Calcium 8.6 (8.5-10.1) mg/dl Magnesium 2.3 (1.8-2.4) mg/dl Total Bilirubin 0.6 (0.2-1) mg/dl AST 10 L (15-37) U/L ALT 26 (12-78) U/L Alkaline Phosphatase 130 H (45-117) U/L Total Protein 6.6 (6.4-8.2) gm/dl Albumin 3.4 (3.4-5.0) gm/dl Globulin 3.2 (2.5-4.0) gm/dl Albumin/Globulin Ratio 1.1 (0.9-2) TSH 0.803 (0.300-4.500) uIu/ml 09/03/19 09/03/19 Range/Units 20:32 16:48 Sodium (136-145) mmol/L Potassium (3.5-5.1) mmol/L Chloride (98-107) mmol/L Carbon Dioxide (21-32) mmol/L Anion Gap (3-11) BUN (7-18) mg/dl Creatinine (0.6-1.4) mg/dl Est Cr Clr Drug Dosing ml/min Est GFR ( Amer) Est GFR (Non-Af Amer) BUN/Creatinine Ratio (10-20) Glucose (70-99) mg/dl POC Glucose 105 H 109 H (70-99) Calcium (8.5-10.1) mg/dl Magnesium (1.8-2.4) mg/dl Total Bilirubin (0.2-1) mg/dl AST (15-37) U/L ALT (12-78) U/L Alkaline Phosphatase (45-117) U/L Total Protein (6.4-8.2) gm/dl Albumin (3.4-5.0) gm/dl Globulin (2.5-4.0) gm/dl Albumin/Globulin Ratio (0.9-2) TSH (0.300-4.500) uIu/ml Diagnostic Findings Telemetry reviewed: sinus bradycardia ranging 45 - 60 bpm with several non sustained bursts of atrial tachycardia lasted 14-16 beats. No symptoms. No atrial fibrillation noted. EKG admission reviewed personally: Normal sinus rhythm, normal EKG. No prior EKGs available for comparison. 2D echocardiogram report reviewed dated July 23, 2019: LV is normal in size. Moderate concentric LVH. Left ventricular wall motion is normal. Ejection fractions 55-60%. Aortic valve sclerosis mild without significant aortic valvular stenosis. No ASD detected, PFO not assessed. Brain MRI report reviewed dated July 22, 2019: IMPRESSION: 1. Multiple small acute lacunar infarcts affecting the right basal ganglia and right thalamus. More extensive infarct in the right hippocampus. Minimal acute lacunar infarct in the right occipital lobe. Medications Administered Current Inpatient Medications Acetaminophen (Tylenol) 650 mg PO Q6H PRN PRN Reason: Fever Stop: 08/21/19 19:50 Aspirin (Ecotrin Ectab) 81 mg PO QAM [facility] Stop: 08/22/19 08:59 Last Admin: 07/26/19 08:10 Dose: 81 mg Documented by: Atorvastatin Calcium (Lipitor) 80 mg PO QAM [facility] Stop: 08/23/19 08:59 Last Admin: 07/26/19 08:11 Dose: 80 mg Documented by: Clopidogrel Bisulfate (Plavix) 75 mg PO QAM [facility] Stop: 08/22/19 14:59 Last Admin: 07/26/19 08:11 Dose: 75 mg Documented by: Dextrose (Dextrose 50%) 25 - 50 ml IV UD PRN; Protocol PRN Reason: Hypoglycemia Protocol Stop: 08/21/19 11:38 Enoxaparin Sodium (Lovenox) [facility] [place]: 08/23/19 08:59 Last Admin: 07/26/19 08:11 Dose: 40 mg Documented by: Glucagon (Glucagen) 1 mg SQ UD PRN; Protocol PRN Reason: Hypoglycemia Protocol Stop: 08/21/19 11:38 Glucose (Dex4 Glucose) 4 - 8 tabs PO UD PRN; Protocol PRN Reason: Hypoglycemia Protocol Stop: 08/21/19 11:38 Glucose (Glucose 40%) 15 - 30 gm PO UD PRN; Protocol PRN Reason: Hypoglycemia Protocol Stop: 08/21/19 11:38 Insulin Aspart (Novolog Flexpen) 0 units SC ACHS [facility] Stop: 08/21/19 11:38 Last Admin: 07/26/19 12:13 Dose: 3 units Documented by: Insulin Glargine (Lantus Solostar Pen) 10 units SC BID [facility] Stop: 08/21/19 20:59 Last Admin: 07/26/19 08:11 Dose: 10 units Documented by: Levalbuterol HCl (Xopenex Hfa) 2 puffs INH Q4H PRN PRN Reason: Wheezing Stop: 08/25/19 02:44 Lisinopril (Zestril) 2.5 mg PO [facility] Stop: 08/25/19 05:59 Last Admin: 07/26/19 06:18 Dose: 2.5 mg Documented by: Miscellaneous (Carbohydrates For Hypoglycemia) 15 - 30 gm PO UD PRN PRN Reason: Hypoglycemia Treatment Stop: 08/21/19 11:38 Miscellaneous Information (Pharmacist Discharge Med Rec Consult) 1 ea N/A UD PRN PRN Reason: Consult Stop: 08/21/19 11:38 Polyethylene Glycol (Miralax Powder Packet) 17 gm PO DAILY PRN PRN Reason: Constipation Stop: 08/25/19 14:01 Sennosides (Senokot) 8.6 mg PO QAM [facility] Stop: 08/25/19 14:14
--- NOTE | 2019-07-26 16:05 | Hospitalist Progress Note ---
Date of Service July 26, 2019 Assessment & Plan (1) Stroke: Acute right DETECTIVE stroke, Acute right MCA stroke -73 year old male admitted with acute right DETECTIVE/MCA terriotry infarct with left hemiparesis (Upper>lower), facial droop, dysarthria, and moderate to severe ataxia. On review of is MRI brain most of the infart appears patchy in the right DETECTIVE territory with CTA showing an occluded right P1 artery. However, there is infarct in the right longoria radiata Vs basal ganglia which would suggest some MCA territory involvement. He also has severe stenosis of the left internal carotid artery at the origin. 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 -TTE with EF 55-60% and No cardiac source of embolism. -continue ASA 81 mg daily and Plavix 75 mg daily, atorvastatin 80 mg daily -blood pressure control target SBP < 140, DBP<90 mm Hg while avoiding hypotension - Will need outpatient Neurosurgery or vascular surgery referral for left ICA stenosis - Continue Telemetry, outpatient 30-day event monitor - Cardiology service was asked to discern whether intermittent arrhythmia in the hospital were runs of SVTs verus atrial tachycardia ; cardiology service does not advise beta ambrocio due to resting bradycardia - PT/OT, patient will [facility] to [facility] when [facility] intermittent arrhythmia -runs of SVTs verus atrial tachycardia; cardiology service does not advise beta ambrocio due to resting bradycardia (2) HTN (hypertension): -patient's amlodipine on this admission was stopped in favor of HCTZ -HCTZ as 12.5 mg daily, monitor and replete serum potassium -lisinopril 2.5 mg daily Hypokalemia -serum potassium is 3.3 on 07/26/19, may be from HCTZ, potassium supplements were given, repeat serum potassium levels as 4.6 -continue HCTZ and repeat serum potassium levels tomorrow with JOY inhibitor (3) DMII (diabetes mellitus, type 2): Type 2 diabetes mellitus without 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 use of insulin and without complications -HbA1C 6.7 -resume home dose metformin 1000 mg BID (4) Hyperlipidemia: -hospital lipid panel reviewed and LDL of 93 -as per neurology recommendations, the target LDL is less than 70 -continue atorvastatin as 80 mg daily which is higher than original home dose of 40 mg daily (5) Sacral decubitus ulcer, stage II: -sacral breakdown that is <1cm intergluteal fold with surrounding nonblanchable erythema-Stage II -wound care and repositioning (6) DVT prophylaxis: -Lovenox Full code [phone]; [phone] Subjective Patient recently had 8 second run of arrhythmia that appeared to resemble SVT around 2 AM and then a 9 second run around 1:50 PM. otherwise generally sinus bradycardia. denies chest pain or palpitations or dizziness or lightheadedness, no abdominal pain. Physical Exam Constitutional: comfortable Eyes: PERRL, conjunctivae normal, anicteric sclerae EOM intact bilaterally ENMT: external ear and nose normal, oropharynx normal Neck: normal visual inspection Respiratory: normal respiratory effort, lungs clear to auscultation Cardiovascular: Rate/Rhythm: + bradycardic Gastrointestinal (Abdomen): normal bowel sounds, soft, nontender, no hepatosplenomegaly Musculoskeletal: Head/Neck/Chest: normocephalic and head atraumatic Neurologic: hr coordinator strength intact on the right, weak on the left. LLE has 5/5 strength but difficult to direct his voluntary movements, RUE/RLE 5/5 intact, head is normocephalic and atraumatic Psychiatric: Orientation: alert and cooperative Results & Data Vital Signs (Past 12 Hours) Vital Signs Temp Pulse Pulse Resp BP Pulse Ox 07/26/19 15:02 37.2 C 57 L 18 134/63 95 07/26/19 11:35 36.9 C 55 L 18 135/64 98 07/26/19 09:00 45 L 07/26/19 07:14 36.8 C 51 L 18 175/59 H 96 07/26/19 04:21 37.0 C 52 L 18 181/71 H 94
[2019-07-26 16:22] LABS: BUN Creatinine Ratio 20.4 (10-20); Calcium 9.1 mg/dl (8.5-10.1); Est GFR (Non-African American) 54.4; Potassium 4.6 mmol/L (3.5-5.1)
[2019-07-26] MEDS ORDERED: hydroCHLOROthiazide 25 MG TAB PO ONE (16:30)
[2019-07-26] MEDS: SENNA 8.6 MG TAB PO SCH (17:08)
[2019-07-26] MEDS: METFORMIN HCL 500 MG TAB PO SCH (18:14)
[2019-07-27] MEDS: CLOPIDOGREL BISULFATE 75 MG TAB PO SCH (08:21)
[2019-07-27] MEDS: ATORVASTATIN 40 MG TAB PO SCH (08:21)
[2019-07-27] MEDS: METFORMIN HCL 500 MG TAB PO SCH (08:21)
[2019-07-27] MEDS: ASPIRIN 81 MG ECTAB PO SCH (08:22)
[2019-07-27] MEDS: SENNA 8.6 MG TAB PO SCH (08:22)
[2019-07-27] MEDS: ENOXAPARIN INJ 40 MG/0.4 ML SYR SQ SCH (08:23)
[2019-07-27] MEDS: LISINOPRIL 2.5 MG TAB PO SCH (08:23)
[2019-07-27] MEDS ORDERED: IBUPROFEN 200 MG TAB PO PRN (08:30)
[2019-07-27 08:32] LABS: Basophils # (auto) 0.01 K/uL (0-0.2); Basophils % (auto) 0.1 %; Eosinophils # (auto) 0.28 K/uL (0-0.5); Eosinophils % (auto) 3.4 %; Hematocrit (blood only) 36.7 % (42-52); Hemoglobin 12.8 g/dL (14.0-18.0); Immature Granulocytes # (auto) 0.01 K/uL (0.00-0.02); Immature Granulocytes % (auto) 0.1 %; Lymphocytes # (auto) 1.21 K/uL (1.2-3.4); Lymphocytes % (auto) 14.8 %; Mean Corpuscular Hemoglobin 31.9 pg (25-34); Mean Corpuscular Volume 91.5 fL (80-100); Mean Platelet Volume 9.8 fL (7.4-10.4); Monocytes % (auto) 9.8 %; Neutrophils # (auto) 5.86 K/uL (1.4-6.5); Neutrophils % (auto) 71.8 %; Platelet Count 201 K/uL (130-400); RDW Coefficient of Variation 12.4 % (11.5-14.5); RDW Standard Deviation 41.5 fL (36.4-46.3); Red Blood Count 4.01 M/uL (4.7-6.1); White Blood Count 8.17 K/uL (4.8-10.8)
[2019-07-27 08:35] LABS: Mean Corpuscular Hgb Conc 34.9 g/dL (32-36)
[2019-07-27] MEDS ORDERED: hydroCHLOROthiazide 25 MG TAB PO SCH ×2 (09:00)
[2019-07-27 09:05] LABS: Albumin Level 3.5 gm/dl (3.4-5.0); BUN Creatinine Ratio 22.3 (10-20); Creatinine Clr Calc Pharmacy 50.1 ml/min; Est GFR (African American) 71.7; Est GFR (Non-African American) 61.9; Magnesium 2.5 mg/dl (1.8-2.4); Potassium 4.3 mmol/L (3.5-5.1)
[2019-07-27 09:08] LABS: Bilirubin,Total 0.5 mg/dl (0.2-1); Globulin 3.4 gm/dl (2.5-4.0); Total Protein 6.9 gm/dl (6.4-8.2)
--- NOTE | 2019-07-27 10:39 | Ultrasound Report ---
US venous doppler UE RT HISTORY: 73 years-old Male rule out DVT versus thrombophlebitis acute pain and swelling of the right forearm COMPARISON: None available TECHNIQUE: Multiple real time sonographic images of the right upper extremity deep venous structures were obtained assessing grayscale appearance, color and spectral flow FINDINGS: Normal flow, compressibility and phasicity of the right upper extremity deep venous structures. Subcu taneous edema of the right forearm. Occlusive superficial venous thrombosis noted within a branch of the right basilic vein. IMPRESSION: 1. No sonographic evidence of deep venous thrombosis. 2. Superficial venous thrombosis involves a branch of the basilic vein. The above report was generated using voice recognition software. It may contain grammatical, syntax o r spelling errors. Electronically signed by: Alfonso Martinez M.D. 07/27/2019 10:38 AM
[2019-07-27] MEDS ORDERED: ACETAMINOPHEN 325 MG TAB PO PRN (11:00)
--- NOTE | 2019-07-27 12:57 | Hospitalist Progress Note ---
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 On review of is MRI brain most of the infart appears patchy in the right DIGITAL COMPUTER SYSTEMS ANALYST territory with CTA showing an occluded right P1 artery. However, there is infarct in the right longoria radiata Vs basal ganglia which would suggest some MCA territory involvement. He also has severe stenosis of the left internal carotid artery at the origin. 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 -also Focal vessel occlusion of the distal P1 segment of the right posterior cerebral artery. Notably, the right posterior communicating artery is hypoplastic or aplastic -Patient is also found to have carotid artery disease, which may require treatment and patient should be discussed with primary care doctor at follow-up visit for referral to Vascular Surgery or Neurosurgery (Right common carotid artery: Noncalcified atherosclerotic plaque resulting in less than 25% stenosis of the distal portion. Right internal and external carotid arteries: Calcified and noncalcified atherosclerotic plaque at the carotid bifurcation. Over 90% stenosis of the origin of the external carotid artery. Less than 50% stenosis of the proximal ICA beyond the bifurcation. Left common carotid artery: Less than 25% stenosis of the origin due to noncalcified atherosclerotic plaque. Left internal and external carotid arteries: Significant noncalcified atherosclerotic plaque at the bifurcation with over 90% stenosis of the origin of the internal carotid artery. Origin of the external carotid artery widely patent. Remainder of the ICA patent. Left subclavian artery: Not calcified atherosclerotic plaque with less than 25% stenosis of the origin and proximal course of the left subclavian artery. Vertebral arteries: Left dominant vertebral artery. Origin of the left vertebral artery is occluded as well as the proximal course. Reconstitution of flow within the artery within the transverse foramen at C6-7 with irregularity of the artery until the level of the mid cervical spine. Widely patent right vertebral artery in the upper cervical spine through the intradural portion. Left vertebral artery widely patent.) -Neurology follow up 09/19/2019 10:20 AM Provider Morgan Sabillon DO Department Neurology [facility] -TTE with EF 55-60% and No cardiac source of embolism. -patient discharge medications includes increased dosing of atorvastatin as 80 mg daily and aspirin 81 mg daily and clopidogrel 75 mg to reduce risk of stroke re-occurrence patient also on blood pressure medications of lisinopril 2.5 mg daily and HCTZ 25mg daily -primary care doctor follow up appointment made for 07/31/2019 9:00 AM Provider Axel Zaidi MD Department Family Practice [facility] (patient should have renal function and electrolytes checked on follow up to primary care doctor and recommend outpatient follow up with ultrasound of the right arm to rule out any increase in the Superficial venous thrombosis that involves a branch of the basilic vein, and to titrate blood pressure medications as needed to target blood pressure to less than 140/90) intermittent arrhythmia, sinus bradycardia -Cardiology service has evaluated the patient for bradycardia with intermittent atrial tachycardia versus supraventricular tachycardia and has arranged outpatient Zio Patch placement for heart monitoring (They will call patient's for further instructions) to monitor for arrhythmia for 30 days post discharge. Superficial venous thrombosis that involves a branch of the basilic vein (right arm) -noted on 07/27/19, likely due to peripheral IV line -patient also may take acetaminophen or ibuprofen for pain from Superficial venous thrombosis that involves a branch of the basilic vein. Ice can be placed on right arm as needed -recommend outpatient follow up with ultrasound of the right arm to rule out any increase in the Superficial venous thrombosis that involves a branch of the basilic vein with primary care doctor on outpatient follow up (2) HTN (hypertension): -patient also on blood pressure medications of lisinopril 2.5 mg daily and HCTZ 25mg daily for discharge -patient should have renal function and electrolytes checked on follow up to primary care doctor and and to titrate blood pressure medications as needed to target blood pressure to less than 140/90 Hypokalemia -serum potassium is 3.3 on 07/26/19, may be from HCTZ, potassium supplements were given, repeat serum potassium levels as 4.6 -serum potassium is 4.3 on 07/27/19 (3) DMII (diabetes mellitus, type 2): Type 2 diabetes mellitus without joint terminal attack controller use of insulin -HbA1C 6.7 -continue home dose metformin 1000 mg BID (4) Hyperlipidemia: -hospital lipid panel reviewed and LDL of 93 -as per neurology recommendations, the target LDL is less than 70 -continue atorvastatin as 80 mg daily which is higher than original home dose of 40 mg daily (5) Sacral decubitus ulcer, stage II: -sacral breakdown that is <1cm intergluteal fold with surrounding nonblanchable erythema-Stage II -Stage 2 sacral ulcer is healing. reposition as needed during stay at 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 Notably, the right posterior communicating artery is hypoplastic or aplastic) patient discharge medications includes increased dosing of atorvastatin as 80 mg daily and aspirin 81 mg daily and clopidogrel 75 mg to reduce risk of stroke re- occurrence patient also on blood pressure medications of lisinopril 2.5 mg daily and HCTZ 25mg daily patient also may take acetaminophen or ibuprofen for pain from Superficial venous thrombosis that involves a branch of the basilic vein. Ice can be placed on right arm as needed primary care doctor follow up appointment made for 07/31/2019 9:00 AM Provider Axel Zaidi MD Department Family [facility] (patient should have renal function checked and electrolytes on follow up to primary care doctor and recommend outpatient follow up with ultrasound of the right arm to rule out any increase in the Superficial venous thrombosis that involves a branch of the basilic vein, and to titrate blood pressure medications as needed to target blood pressure to less than 140/90) Patient is also found to have carotid artery disease, which may require treatment and patient should be discussed with your primary care doctor at your follow-up visit for referral to Vascular Surgery or Neurosurgery (Right common carotid artery: Noncalcified atherosclerotic plaque resulting in less than 25% stenosis of the distal portion. Right internal and external carotid arteries: Calcified and noncalcified atherosclerotic plaque at the carotid bifurcation. Over 90% stenosis of the origin of the external carotid artery. Less than 50% stenosis of the proximal ICA beyond the bifurcation. Left common carotid artery: Less than 25% stenosis of the origin due to noncalcified atherosclerotic plaque. Left internal and external carotid arteries: Significant noncalcified atherosclerotic plaque at the bifurcation with over 90% stenosis of the origin of the internal carotid artery. Origin of the external carotid artery widely patent. Remainder of the ICA patent. Left subclavian artery: Not calcified atherosclerotic plaque with less than 25% stenosis of the origin and proximal course of the left subclavian artery. Vertebral arteries: Left dominant vertebral artery. Origin of the left vertebral artery is occluded as well as the proximal course. Reconstitution of flow within the artery within the transverse foramen at C6-7 with irregularity of the artery until the level of the mid cervical spine. Widely patent right vertebral artery in the upper cervical spine through the intradural portion. Left vertebral artery widely patent.) Neurology follow up 09/19/2019 10:20 AM Provider Morgan Sabillon DO Department Neurology [facility] Cardiology service evaluated the patient for bradycardia with intermittent atrial tachycardia versus supraventricular tachycardia and has arranged outpatient Zio Patch placement for heart monitoring (They will call patient's for further instructions) to monitor for arrhythmia for 30 days post discharge. Stage 2 sacral ulcer is healing. reposition as needed during stay at [facility] Please call if you have any questions or problems. You can reach a [facility] hospitalist on duty at [facility] 24 hours a day by calling [phone]. Other stroke discharge instructions Risk Factors for Stroke: You can reduce your chances of stroke by working with your medical provider to adopt a healthy lifestyle. Some specific ways to lower your chance of stroke are: * If you are a smoker, now is the time to stop smoking cigarettes * If you are diabetic, improve the control of your blood sugars * Avoid excessive amounts of alcohol * Control high blood pressure * Lose weight if you are overweight * Be sure to lead an active lifestyle * Eat a healthy diet low in salt, cholesterol and fat You should know about other risk factors for stroke that you are unable to control. These include: * Age 55 years or older * Male gender * Certain racial groups: , or / * Family History of Stroke, Mini stroke or Heart Attack * Sickle Cell Disease Follow Up: It is important for you to keep your follow up appointments with your medical provider. Who to Call and When: Medical Emergencies: Call 911 immediately if you experience any of the following warning signs and symptoms of Stroke: * Sudden numbness or weakness of the face, arm or leg, especially on one side of the body * Sudden confusion, trouble speaking or understanding * Sudden trouble seeing in one or both eyes * Sudden trouble walking, dizziness, loss of balance or coordination * Sudden severe headache with no cause Do not delay calling 911 if you experience any warning signs or symptoms of a stroke. Delay in seeking medical attention may affect what treatments can be given to you. . Subjective right arm erythema/swelling from superficial venous thrombosis likely from peripheral IV site. patient does not have acute right arm pain. has residual left sided weakness. no chest pain. no dizziness. no headache. no abdominal pain. no vomiting. sinus bradycardia on telemetry Physical Exam Constitutional: comfortable Eyes: PERRL, conjunctivae normal, anicteric sclerae EOM intact bilaterally ENMT: external ear and nose normal, oropharynx normal Neck: normal visual inspection Respiratory: normal respiratory effort, lungs clear to auscultation Cardiovascular: Rate/Rhythm: + bradycardic Gastrointestinal (Abdomen): normal bowel sounds, soft, nontender, no hepatosplenomegaly Musculoskeletal: Head/Neck/Chest: normocephalic and head atraumatic Knee: + skin erythema (right arm erythema/swelling from superficial venous thrombosis) Skin: + ulcer (Sacral decubitus ulcer stage II (healing)) Neurologic: PERRL, EOMI, accommodation nl, no face palsy, no dysarthria CN's II-XI intact bilaterally (left sided weakness) Psychiatric: Orientation: alert and cooperative Results & Data Vital Signs (Past 12 Hours) Vital Signs Temp Pulse Pulse Pulse Resp BP Pulse Ox 07/27/19 11:42 36.9 C 62 18 153/64 H 96 07/27/19 08:00 57 L 07/27/19 07:24 37.0 C 60 18 163/67 H 97 07/27/19 02:44 37.0 C 58 L 50 H 161/65 H
[2019-07-27] MEDS ORDERED: STROKE PATIENT DISCHARGE STA (13:17)
--- NOTE | 2019-07-27 13:19 | Discharge Summary ---
Date of Service July 27, 2019 Admission HPI Per Admitting Provider 73-year-old man with no history of stroke or known cardiovascular disease who has a history of smoking presented to the ER via ambulance after experiencing strokelike symptoms at home. He reported waking up at 1:30 in the morning, but he was unclear what to place after this. Per his who is at bedside she states he got up out of bed and fell onto the floor was unable to get up. The patient states he remembers being unable to use his left arm. The patient denies headache or visual changes but does report difficulty finding his words. reports he had difficulty speaking and a clear new left-sided facial droop which is still present. The patient denies difficulty using his left leg, however, EMS reports he did have left lower extremity weakness. A stroke alert was called and TPA was not indicated as his symptoms were improving. Facial droop has improved and left upper extremity weakness has improved with complete resolution of lower extremity weakness. The patient still reports word finding difficulty but is articulating clearly. He does report respiratory symptoms last week including a productive cough for an unknown amount of time which has resolved. reports a history of COPD and that the patient takes albuterol inhaler as needed. The patient denies any recent [id number] medications he did not take his prescribed medications this morning. reports he recently lost his primary care doctor, who retired, and has not established care with anyone else. Review of systems is otherwise negative including no chest pain, shortness of breath, coughing, fever, chills, abdominal pain, urinary symptoms, changes in bowels. Admission Exam Per Admitting Provider CONSTITUTIONAL: WNWD, vitals as above, generally well-appearing EYES: EOMI bilaterally, PERRL, normal conjunctivae, no scleral icterus ENT: external ear and nose normal, oropharynx clear, MMM RESPIRATORY: crackles at the right base, otherwise clear to auscultation bilaterally with good air movement bilaterally, no wheezes, normal respiratory effort CARDIOVASCULAR: regular rate and rhythm, S1 and 2 heard without murmurs, ga llops or rubs, no JVD, no peripheral edema GASTROINTESTINAL: normal bowel sounds, soft, nontender, nondistended MUSCULOSKELETAL: LUE 3/5 biceps/triceps but not able to direct his movements well, sap functional analyst strength intact, RUE/RLE 5/5 intact, head is normocephalic and atraumatic SKIN: warm and dry, sacral breakdown that is <1cm intergluteal fold with surrounding nonblanchable erythema-Stage II NEUROLOGIC: BR/pat DTR 2/4 bilat. L facial palsy, no dysarthria. No other cranial nerve deficits noted, no sensory deficit, normal cognition, normal speech, no tremor PSYCHIATRIC: alert cooperative and oriented to person, place and time. 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 MANAGER stroke, Acute right MCA stroke); (bilateral) carotid artery disease, Hypertension, intermittent arrhythmia, Type 2 diabetes mellitus without life insurance underwriter use of insulin, arrhythmia (intermittent), sinus bradycardia, Superficial venous thrombosis that involves a branch of the basilic vein (right arm), Sacral decubitus ulcer stage II (healing) Discharge Exam Constitutional comfortable Eyes PERRL, conjunctivae normal, anicteric sclerae EOM intact bilaterally ENMT external ear and nose normal, oropharynx normal Neck normal visual inspection Respiratory normal respiratory effort, lungs clear to auscultation Cardiovascular Rate/Rhythm: + bradycardic Gastrointestinal (Abdomen) normal bowel sounds, soft, nontender, no hepatosplenomegaly Musculoskeletal Head/Neck/Chest: normocephalic and head atraumatic Knee: + skin erythema (right arm erythema/swelling from superficial venous thrombosis) Skin + ulcer (Sacral decubitus ulcer stage II (healing)) Neurologic PERRL, EOMI, accommodation nl, no face palsy, no dysarthria CN's II-XI intact bilaterally (left sided weakness) Psychiatric Orientation: alert and cooperative Discharge Data Allergies Allergy/AdvReac Type Severity Reaction Status Date / Time No Known Allergies Allergy Unverified 07/22/19 11:11 Consultations 07/22/19 10:17 ED Decision to Admit Stat 07/22/19 11:39 Consult Case Management - Discharge Planning Routine Consult Neurology Routine 07/25/19 17:25 Consult Cardiology Routine Ordered Studies 07/22/19 09:07 CT angio head w con Stat CT angio neck with con Stat CT head/brain wo con Stat 07/22/19 11:39 MR brain wo con Routine 07/27/19 08:20 US venous doppler UE RT Stat Hospital Course (1) Stroke: cerebrovascular accident (Acute right GRAIN COMMODITY MANAGER stroke, Acute right MCA stroke); (bilateral) carotid artery disease -73 year old male admitted with acute right GRAIN COMMODITY MANAGER/MCA terriotry infarct with left hemiparesis (Upper>lower), facial droop, dysarthria, and moderate to severe ataxia. On review of is MRI brain most of the infart appears patchy in the right GRAIN COMMODITY MANAGER territory with CTA showing an occluded right P1 artery. However, there is infarct in the right longoria radiata Vs basal ganglia which would suggest some MCA territory involvement. He also has severe stenosis of the left internal carotid artery at the origin. 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 -also Focal vessel occlusion of the distal P1 segment of the right posterior cerebral artery. Notably, the right posterior communicating artery is hypoplastic or aplastic -Patient is also found to have carotid artery disease, which may require treatment and patient should be discussed with primary care doctor at follow-up visit for referral to Vascular Surgery or Neurosurgery (Right common carotid artery: Noncalcified atherosclerotic plaque resulting in less than 25% stenosis of the distal portion. Right internal and external carotid arteries: Calcified and noncalcified atherosclerotic plaque at the carotid bifurcation. Over 90% stenosis of the origin of the external carotid artery. Less than 50% stenosis of the proximal ICA beyond the bifurcation. Left common carotid artery: Less than 25% stenosis of the origin due to noncalcified atherosclerotic plaque. Left internal and external carotid arteries: Significant noncalcified atherosclerotic plaque at the bifurcation with over 90% stenosis of the origin of the internal carotid artery. Origin of the external carotid artery widely patent. Remainder of the ICA patent. Left subclavian artery: Not calcified atherosclerotic plaque with less than 25% stenosis of the origin and proximal course of the left subclavian artery. Vertebral arteries: Left dominant vertebral artery. Origin of the left vertebral artery is occluded as well as the proximal course. Reconstitution of flow within the artery within the transverse foramen at C6-7 with irregularity of the artery until the level of the mid cervical spine. Widely patent right vertebral artery in the upper cervical spine through the intradural portion. Left vertebral artery widely patent.) -Neurology follow up 09/19/2019 10:20 AM Provider Morgan Sabillon DO Department Neurology [facility] -TTE with EF 55-60% and No cardiac source of embolism. -patient discharge medications includes increased dosing of atorvastatin as 80 mg daily and aspirin 81 mg daily and clopidogrel 75 mg to reduce risk of stroke re-occurrence patient also on blood pressure medications of lisinopril 2.5 mg daily and HCTZ 25mg daily -primary care doctor follow up appointment made for 07/31/2019 9:00 AM Provider Axel Zaidi MD Department Family Practice [facility] (patient should have renal function and electrolytes checked on follow up to primary care doctor and recommend outpatient follow up with ultrasound of the right arm to rule out any increase in the Superficial venous thrombosis that involves a branch of the basilic vein, and to titrate blood pressure medications as needed to target blood pressure to less than 140/90) intermittent arrhythmia, sinus bradycardia -Cardiology service has evaluated the patient for bradycardia with intermittent atrial tachycardia versus supraventricular tachycardia and has arranged outpatient Zio Patch placement for heart monitoring (They will call patient's for further instructions) to monitor for arrhythmia for 30 days post discharge. Superficial venous thrombosis that involves a branch of the basilic vein (right arm) -noted on 07/27/19, likely due to peripheral IV line -patient also may take acetaminophen or ibuprofen for pain from Superficial venous thrombosis that involves a branch of the basilic vein. Ice can be placed on right arm as needed -recommend outpatient follow up with ultrasound of the right arm to rule out any increase in the Superficial venous thrombosis that involves a branch of the basilic vein with primary care doctor on outpatient follow up (2) HTN (hypertension): -patient also on blood pressure medications of lisinopril 2.5 mg daily and HCTZ 25mg daily for discharge -patient should have renal function and electrolytes checked on follow up to primary care doctor and and to titrate blood pressure medications as needed to target blood pressure to less than 140/90 Hypokalemia -serum potassium is 3.3 on 07/26/19, may be from HCTZ, potassium supplements were given, repeat serum potassium levels as 4.6 -serum potassium is 4.3 on 07/27/19 (3) DMII (diabetes mellitus, type 2): Type 2 diabetes mellitus without jail use of insulin -HbA1C 6.7 -continue home dose metformin 1000 mg BID (4) Hyperlipidemia: -hospital lipid panel reviewed and LDL of 93 -as per neurology recommendations, the target LDL is less than 70 -continue atorvastatin as 80 mg daily which is higher than original home dose of 40 mg daily (5) Sacral decubitus ulcer, stage II: -sacral breakdown that is <1cm intergluteal fold with surrounding nonblanchable erythema-Stage II -Stage 2 sacral ulcer is healing. reposition as needed during stay at [facility] (6) DVT prophylaxis: -Lovenox Full code [phone]; [phone] Discharge Diagnosis cerebrovascular accident (Acute right GRAIN COMMODITY MANAGER stroke, Acute right MCA stroke); (bilateral) carotid artery disease, Hypertension, intermittent arrhythmia, Type 2 diabetes mellitus without jail use of insulin, arrhythmia (intermittent), sinus bradycardia, Superficial venous thrombosis that involves a branch of the basilic vein (right arm), Sacral decubitus ulcer stage II (healing) Discharge Instructions Patient is discharged to [facility] for physical rehabilitation to assist improving stroke deficits from Acute right GRAIN COMMODITY MANAGER stroke, Acute right MCA stroke (also Focal vessel occlusion of the distal P1 segment of the right posterior cerebral artery. Notably, the right posterior communicating artery is hypoplastic or aplastic) patient discharge medications includes increased dosing of atorvastatin as 80 mg daily and aspirin 81 mg daily and clopidogrel 75 mg to reduce risk of stroke re- occurrence patient also on blood pressure medications of lisinopril 2.5 mg daily and HCTZ 25mg daily patient also may take acetaminophen or ibuprofen for pain from Superficial venous thrombosis that involves a branch of the basilic vein. Ice can be placed on right arm as needed primary care doctor follow up appointment made for 07/31/2019 9:00 AM Provider Axel Zaidi MD Department [facility] (patient should have renal function checked and electrolytes on follow up to primary care doctor and recommend outpatient follow up with ultrasound of the right arm to rule out any increase in the Superficial venous thrombosis that involves a branch of the basilic vein, and to titrate blood pressure medications as needed to target blood pressure to less than 140/90) Patient is also found to have carotid artery disease, which may require treatment and patient should be discussed with your primary care doctor at your follow-up visit for referral to Vascular Surgery or Neurosurgery (Right common carotid artery: Noncalcified atherosclerotic plaque resulting in less than 25% stenosis of the distal portion. Right internal and external carotid arteries: Calcified and noncalcified atherosclerotic plaque at the carotid bifurcation. Over 90% stenosis of the origin of the external carotid artery. Less than 50% stenosis of the proximal ICA beyond the bifurcation. Left common carotid artery: Less than 25% stenosis of the origin due to n oncalcified atherosclerotic plaque. Left internal and external carotid arteries: Significant noncalcified atherosclerotic plaque at the bifurcation with over 90% stenosis of the origin of the internal carotid artery. Origin of the external carotid artery widely patent. Remainder of the ICA patent. Left subclavian artery: Not calcified atherosclerotic plaque with less than 25% stenosis of the origin and proximal course of the left subclavian artery. Vertebral arteries: Left dominant vertebral artery. Origin of the left vertebral artery is occluded as well as the proximal course. Reconstitution of flow within the artery within the transverse foramen at C6-7 with irregularity of the artery until the level of the mid cervical spine. Widely patent right vertebral artery in the upper cervical spine through the intradural portion. Left vertebral artery widely patent.) Neurology follow up 09/19/2019 10:20 AM Provider Morgan Sabillon DO Department Neurology [facility] Cardiology service evaluated the patient for bradycardia with intermittent atrial tachycardia versus supraventricular tachycardia and has arranged outpatient Zio Patch placement for heart monitoring (They will call patient's for further instructions) to monitor for arrhythmia for 30 days post discharge. Stage 2 sacral ulcer is healing. reposition as needed during stay at [facility] Please call if you have any questions or problems. You can reach a [facility] hospitalist on duty at [facility] 24 hours a day by calling [phone]. Other stroke discharge instructions Risk Factors for Stroke: You can reduce your chances of stroke by working with your medical provider to adopt a healthy lifestyle. Some specific ways to lower your chance of stroke are: * If you are a smoker, now is the time to stop smoking cigarettes * If you are diabetic, improve the control of your blood sugars * Avoid excessive amounts of alcohol * Control high blood pressure * Lose weight if you are overweight * Be sure to lead an active lifestyle * Eat a healthy diet low in salt, cholesterol and fat You should know about other risk factors for stroke that you are unable to control. These include: * Age 55 years or older * Male gender * Certain racial groups: , or / * Family History of Stroke, Mini stroke or Heart Attack * Sickle Cell Disease Follow Up: It is important for you to keep your follow up appointments with your medical provider. Who to Call and When: Medical Emergencies: Call 911 immediately if you experience any of the following warning signs and symptoms of Stroke: * Sudden numbness or weakness of the face, arm or leg, especially on one side of the body * Sudden confusion, trouble speaking or understanding * Sudden trouble seeing in one or both eyes * Sudden trouble walking, dizziness, loss of balance or coordination * Sudden severe headache with no cause Do not delay calling 911 if you experience any warning signs or symptoms of a stroke. Delay in seeking medical attention may affect what treatments can be given to you. . Total Time Total Time Spent Total Time Spent (In Minutes): 40 minutes Total Time Includes: Examination of the Patient, Discharge Planning, Medication Reconciliation and Communication With Other Providers Discharge Plan Discharge Items Patient Disposition: Transfer Inpatient Rehab Fac Reason For Visit: STROKE LIKE SYMPTOMS Discharge Diagnosis: cerebrovascular accident (Acute right GRAIN COMMODITY MANAGER stroke, Acute right MCA stroke); (bilateral) carotid artery disease, Hypertension, intermittent arrhythmia, Type 2 diabetes mellitus without jail use of insulin, arrhythmia (intermittent), sinus bradycardia, Superficial venous thrombosis that involves a branch of the basilic vein (right arm), Sacral decubitus ulcer stage II (healing) Condition: Good Discharge Goals: Improve disease control and Improve function Activity: Resume your previous activity Non-emergency contact: Primary Care Provider Call non-emergency contact if: you have any medication questions, your symptoms worsen, your pain is not controlled, your pain is worsening, your pain is unusual for you, your pain is concerning for you and you have a fever Follow-up/Referrals: Nithin Salinas [Primary Care Provider] - Diet: Carb Consistent or DM2 and Low Sodium (2gm) Diet 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 Notably, the right posterior communicating artery is hypoplastic or aplastic)) patient discharge medications includes increased dosing of atorvastatin as 80 mg daily and aspirin 81 mg daily and clopidogrel 75 mg to reduce risk of stroke re- occurrence patient also on blood pressure medications of lisinopril 2.5 mg daily and HCTZ 25mg daily patient also may take acetaminophen or ibuprofen for pain from Superficial venous thrombosis that involves a branch of the basilic vein. Ice can be placed on right arm as needed primary care doctor follow up appointment made for 07/31/2019 9:00 AM Provider Axel Zaidi MD Department Family Practice [facility] (patient should have renal function and electrolytes checked on follow up to primary care doctor and recommend outpatient follow up with ultrasound of the right arm to rule out any increase in the Superficial venous thrombosis that involves a branch of the basilic vein, and to titrate blood pressure medications as needed to target blood pressure to less than 140/90) Patient is also found to have carotid artery disease, which may require treatment and patient should be discussed with your primary care doctor at your follow-up visit for referral to Vascular Surgery or Neurosurgery (Right common carotid artery: Noncalcified atherosclerotic plaque resulting in less than 25% stenosis of the distal portion. Right internal and external carotid arteries: Calcified and noncalcified atherosclerotic plaque at the carotid bifurcation. Over 90% stenosis of the origin of the external carotid artery. Less than 50% stenosis of the proximal ICA beyond the bifurcation. Left common carotid artery: Less than 25% stenosis of the origin due to noncalcified atherosclerotic plaque. Left internal and external carotid arteries: Significant noncalcified atherosclerotic plaque at the bifurcation with over 90% stenosis of the origin of the internal carotid artery. Origin of the external carotid artery widely patent. Remainder of the ICA patent. Left subclavian artery: Not calcified atherosclerotic plaque with less than 25% stenosis of the origin and proximal course of the left subclavian artery. Vertebral arteries: Left dominant vertebral artery. Origin of the left vertebral artery is occluded as well as the proximal course. Reconstitution of flow within the artery within the transverse foramen at C6-7 with irregularity of the artery until the level of the mid cervical spine. Widely patent right vertebral artery in the upper cervical spine through the intradural portion. Left vertebral artery widely patent.) Neurology follow up 09/19/2019 10:20 AM Provider Morgan Sabillon DO Department Neurology [facility] Cardiology service evaluated the patient for bradycardia with intermittent atrial tachycardia versus supraventricular tachycardia and has arranged outpatient Zio Patch placement for heart monitoring (They will call patient's for further instructions) to monitor for arrhythmia for 30 days post discharge. Stage 2 sacral ulcer is healing. reposition as needed during stay at [facility] Please call if you have any questions or problems. You can reach a [facility] hospitalist on duty at [facility] 24 hours a day by calling [phone]. Other stroke discharge instructions Risk Factors for Stroke: You can reduce your chances of stroke by working with your medical provider to adopt a healthy lifestyle. Some specific ways to lower your chance of stroke are: * If you are a smoker, now is the time to stop smoking cigarettes * If you are diabetic, improve the control of your blood sugars * Avoid excessive amounts of alcohol * Control high blood pressure * Lose weight if you are overweight * Be sure to lead an active lifestyle * Eat a healthy diet low in salt, cholesterol and fat You should know about other risk factors for stroke that you are unable to control. These include: * Age 55 years or older * Male gender * Certain racial groups: , or / * Family History of Stroke, Mini stroke or Heart Attack * Sickle Cell Disease Follow Up: It is important for you to keep your follow up appointments with your medical provider. Who to Call and When: Medical Emergencies: Call 911 immediately if you experience any of the following warning signs and symptoms of Stroke: * Sudden numbness or weakness of the face, arm or leg, especially on one side of the body * Sudden confusion, trouble speaking or understanding * Sudden trouble seeing in one or both eyes * Sudden trouble walking, dizziness, loss of balance or coordination * Sudden severe headache with no cause Do not delay calling 911 if you experience any warning signs or symptoms of a stroke. Delay in seeking medical attention may affect what treatments can be given to you. Prescriptions: New clopidogrel 75 mg Tablet 75 mg PO QAM Qty: 30 RF: 2 atorvastatin 80 mg tablet 80 mg PO DAILY Qty: 30 RF: 2 aspirin [Ecotrin Low Strength] 81 mg Tablet,Delayed Release (Dr/Ec) 81 mg PO QAM Qty: 90 RF: 3 sennosides [Senokot] 8.6 mg Tablet 8.6 mg PO QAM 30 Days Qty: 30 RF: 0 hydrochlorothiazide 25 mg Tablet 25 mg PO QAM 30 Days Qty: 30 RF: 0 lisinopril 2.5 mg Tablet 2.5 mg PO QAM 30 Days Qty: 30 RF: 0 ibuprofen 400 mg tablet 400 mg PO Q8H PRN (Reason: pain) 10 Days Qty: 30 RF: 0 acetaminophen 325 mg tablet 325 mg PO Q6H PRN (Reason: pain or fever) 10 Days Qty: 40 RF: 0 Continued trazodone 50 mg Tablet 50 mg PO HS PRN (Reason: Insomnia) RF: 0 metformin 1,000 mg Tablet 1,000 mg PO BID RF: 0 Effexor XR 150 mg PO DAILY RF: 0 albuterol sulfate 90 mcg/actuation Hfa Aerosol Inhaler 2 puff inhalation Q6H PRN (Reason: sob or wheezing) RF: 0 Discontinued atorvastatin [Lipitor] 40 mg Tablet 40 mg PO DAILY RF: 0 Stand-Alone Forms: [facility] Discharge Orders: Discharge Order (Routine); Ordered 07/27/19 Ordered By: Mich Balderrama Skilled Items Patient informed of condition?: Yes DNR: No Discharge Level of Care: Acute rehab Communicable Disease: No Discharge Prognosis: Stable Admission Data Admit Date/Time: 07/23/19 08:52 Attending Provider: Mich Balderrama Admit Provider: Cari Lozada Primary Care Provider: Nithin Salinas Other Providers: Cari Lozada ; Morgan Sabillon ; Jonathon Hardy Service: Telemetry Medical
== END 2019-07-27 14:12 | DRG 65 ==
LOC: 2N 09:22 → SUATTDRO 07-23 08:52
DX: G81.94 Hemiplegia, unspecified affecting left nondominant side; I65.23 Occlusion and stenosis of bilateral carotid arteries; I82.612 Acute embolism and thrombosis of superficial veins of left upper extremity; I10 Essential (primary) hypertension; L89.152 Pressure ulcer of sacral region, stage 2; J44.9 Chronic obstructive pulmonary disease, unspecified; I47.1 Supraventricular tachycardia; Z79.84 Long term (current) use of oral hypoglycemic drugs; I63.511 Cerebral infarction due to unspecified occlusion or stenosis of right middle cerebral artery; E11.9 Type 2 diabetes mellitus without complications; R29.810 Facial weakness; R00.1 Bradycardia, unspecified; R47.1 Dysarthria and anarthria; R27.0 Ataxia, unspecified; Z87.891 Personal history of nicotine dependence; E78.5 Hyperlipidemia, unspecified; R29.704 NIHSS score 4; I63.531 Cerebral infarction due to unspecified occlusion or stenosis of right posterior cerebral artery

== ENCOUNTER 2019-09-11 22:16 | Inpatient (IN) ==
[2019-09-11] MEDS ORDERED: SODIUM CHLORIDE 0.9% 1000ML 1,000 ML IV ONE (23:39)
[2019-09-11 23:58] LABS: Basophils # (auto) 0.03 K/uL (0-0.2); Basophils % (auto) 0.4 %; Eosinophils % (auto) 1.4 %; Hematocrit (blood only) 29.9 % (42-52); Hemoglobin 10.4 g/dL (14.0-18.0); Immature Granulocytes # (auto) 0.03 K/uL (0.00-0.02); Immature Granulocytes % (auto) 0.4 %; Lymphocytes # (auto) 1.18 K/uL (1.2-3.4); Lymphocytes % (auto) 16.5 %; Mean Corpuscular Hemoglobin 31.7 pg (25-34); Mean Corpuscular Hgb Conc 34.8 g/dL (32-36); Mean Corpuscular Volume 91.2 fL (80-100); Mean Platelet Volume 8.5 fL (7.4-10.4); Monocytes # (auto) 0.61 K/uL (0.11-0.59); Monocytes % (auto) 8.5 %; Neutrophils # (auto) 5.21 K/uL (1.4-6.5); Neutrophils % (auto) 72.8 %; Platelet Count 327 K/uL (130-400); RDW Coefficient of Variation 13.8 % (11.5-14.5); RDW Standard Deviation 45.6 fL (36.4-46.3); Red Blood Count 3.28 M/uL (4.7-6.1); White Blood Count 7.16 K/uL (4.8-10.8)
[2019-09-12 00:08] LABS: Partial Thromboplastin Ratio 0.8; Partial Thromboplastin Time 21.4 Seconds (21.0-31.0); Prothrombin Time 10.7 Seconds (9.0-12.0)
[2019-09-12 00:16] LABS: Alanine Aminotransferase 45 U/L (12-78); Albumin Level 3.4 gm/dl (3.4-5.0); Aspartate Aminotransferase 18 U/L (15-37); Bilirubin Direct 0.1 mg/dl (0-0.2); Blood Urea Nitrogen 30 mg/dl (7-18); Calcium 9.2 mg/dl (8.5-10.1); Carbon Dioxide 27 mmol/L (21-32); Chloride 101 mmol/L (98-107); Creatinine Clr Calc Pharmacy 48.4 ml/min; Est GFR (African American) 68.8; Est GFR (Non-African American) 59.4; Glucose 164 mg/dl (70-99); Lipase 99 U/L (73-393); Magnesium 2.1 mg/dl (1.8-2.4); Potassium 3.5 mmol/L (3.5-5.1); Sodium 136 mmol/L (136-145)
[2019-09-12 00:21] LABS: Alkaline Phosphatase 153 U/L (45-117); Bilirubin,Total 0.4 mg/dl (0.2-1); Total Protein 7.1 gm/dl (6.4-8.2); Troponin I < 0.015 ng/ml (0-0.045)
[2019-09-12 01:36] LABS: Appearance Urine Clear (Clear); Bacteria Urine Automated Negative (Negative); Bilirubin Urine Negative (Negative); Blood Urine Negative (Negative); Cast Urine Automated 0 /lpf (0-5); Color Urine Yellow; Glucose Urine UA Trace (Negative); Ketones Urine Negative (Negative); Leukocyte Esterase Urine Negative (Negative); Nitrite Urine Negative (Negative); RBC Urine Automated 0-4 /hpf (0-4); Urobilinogen Urine Negative (Negative); WBC Urine Automated 0 /hpf (0-5); pH Urine 7.5 (4.5-7.5)
[2019-09-12 01:48] LABS: Protein Urine Negative (Negative); Sulfosalicylic Acid Urine Negative (Negative)
[2019-09-12] MEDS ORDERED: IOVERSOL 100ml IV PRN (02:57)
--- NOTE | 2019-09-12 03:26 | History & Physical Report ---
Date of Service September 12, 2019 Assessment & Plan (1) Altered mental status: Episodic blank stares as per ? Seizure disorder hx CVA CAD/PVD as per records hypertension, elevated DM 2 on oral medications, well-controlled as of recent outpatient hemoglobin A1c of 6.28 August 2019 chronic anemia, hemoglobin better than baseline Possible functional disability past tobacco abuse OBS Medical telemetry given uncontrolled blood pressure Facilitate home BP meds, may need titration Seizure precautions for now, Ativan as needed active seizure EEG, Neurology consult RE episodic blank stares ISS BG goal 140- 180 PT OT eval DVT prophylaxis Lovenox subcu Full code as per . She requests updates from providers. Ms. Ирина Good, contact #[phone] History of Present Illness Chief Complaint: Confusion, blank stares as per Primary Care Provider: Santiago Serna MD History obtained from patient, family, and records. Limited history from patient secondary to disorientation. Medical history significant for CVA, CAD/PVD as per records, hypertension, DM 2 on oral medications, chronic anemia (baseline hemoglobin 11-12), past tobacco abuse. Recent confinement July 2019 for acute CVA. Patient discharged on dual antiplatelet Rx. Patient noted to have episodic confusion the last 3 days as per . Blank stares lasting about a few minutes about 2-4 episodes a day the last 3 days as per . Patient denies headache, chest pain, S OB symptoms. Patient complaining of abdominal discomfort, nausea emesis symptoms yesterday. Good BM as per patient. As per patient's , she has been needing more help take care of patient at home since discharge from the hospital last month. Patient brought to the ER for evaluation. 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 Allergies Allergy/AdvReac Type Severity Reaction Status Date / Time No Known Allergies Allergy Verified 09/11/19 22:48 Home Medications Home Medications Medication Instructions Recorded Confirmed Type albuterol sulfate 2 puff INHALATION Q6H PRN 07/22/19 09/11/19 History metformin 1,000 mg PO BIDM 07/22/19 09/11/19 History trazodone 50 mg PO HS PRN 07/22/19 09/11/19 History aspirin [Ecotrin Low Strength] 81 mg PO QAM #90 tab 07/25/19 09/11/19 Rx clopidogrel 75 mg PO QAM #30 tab 07/25/19 09/11/19 Rx acetaminophen [Tylenol] 650 mg PO Q4H PRN 09/11/19 09/11/19 History atorvastatin 80 mg PO QAM 09/11/19 09/11/19 History hydrochlorothiazide 25 mg PO QAM 09/11/19 09/11/19 History ibuprofen 400 mg PO Q8H PRN 09/11/19 09/11/19 History lisinopril 2.5 mg PO QAM 09/11/19 09/11/19 History ondansetron HCl [Zofran] 4 mg PO Q6H PRN 09/11/19 09/11/19 History venlafaxine 150 mg PO QAM 09/11/19 09/11/19 History hydroxyzine HCl 10 mg PO TID PRN 09/12/19 09/12/19 History pantoprazole 40 mg PO DAILY 09/12/19 09/12/19 History Past Med/Surg History Medical History Bradycardia Atrial tachycardia HTN (hypertension) Stroke Hyperlipidemia DMII (diabetes mellitus, type 2) Depression Diabetes H/O tobacco use, presenting hazards to health Hypertension Insomnia Social History Preferred Language: Chinese Communication Ability: Effective Cafe Manager Required: No Beliefs That Will Affect Care: None marital status: Current Living Situation: Spouse and Family Other Information That Helps Us Care for You: No Feels Safe at Home: Yes Smoking Status: Never smoker Second Hand Exposure: No ; Hx Alcohol Use: No Hx Substance Use: No Review of Systems Review of Systems: Could not be reliably obtained Physical Exam Physical Exam: GENERAL: Comfortable, disoriented, no respiratory distress SKIN: Pallor, warm HEENT: Pale palpebral conjunctivae, no ptosis, dry buccal mucosa NECK : Supple, no tenderness CHEST : CTA, no tenderness HEART : Bradycardic, no obvious murmurs ABDOMEN: Some distention, no overt tenderness EXTREMITIES : No LE swelling/tenderness, no other conspicuous deformities noted NEUROLOGIC : Coherent but disoriented, L facial asymmetry (chronic), gait and stance not assessed, no other gross focality Results & Data Vital Signs (Past 12 Hours) Vital Signs Temp Pulse Pulse Resp BP BP Pulse Ox 09/12/19 03:00 69 18 184/71 H 93 09/12/19 01:20 80 18 139/78 95 09/11/19 23:13 57 L 20 161/69 H 94 09/11/19 22:21 36.8 C 58 L 20 175/53 H 100 Diagnostic Findings Laboratory Results WBC 7.16 K/uL (4.8-10.8) 09/11/19 23:48 RBC 3.28 M/uL (4.7-6.1) L 09/11/19 23:48 Hgb 10.4 g/dL (14.0-18.0) L 09/11/19 23:48 Hct 29.9 % (42-52) L 09/11/19 23:48 MCV 91.2 fL (80-100) 09/11/19 23:48 MCH 31.7 pg (25-34) 09/11/19 23:48 MCHC 34.8 g/dL (32-36) 09/11/19 23:48 RDW Std Deviation 45.6 fL (36.4-46.3) 09/11/19 23:48 RDW Coeff of Minnie 13.8 % (11.5-14.5) 09/11/19 23:48 Plt Count 327 K/uL (130-400) 09/11/19 23:48 MPV 8.5 fL (7.4-10.4) 09/11/19 23:48 Immature Gran % (Auto) 0.4 % 09/11/19 23:48 Neut % (Auto) 72.8 % 09/11/19 23:48 Lymph % (Auto) 16.5 % 09/11/19 23:48 [place] % (Auto) 8.5 % 09/11/19 23:48 Eos % (Auto) 1.4 % 09/11/19 23:48 Baso % (Auto) 0.4 % 09/11/19 23:48 Immature Gran # (Auto) 0.03 K/uL (0.00-0.02) H 09/11/19 23:48 Neut # (Auto) 5.21 K/uL (1.4-6.5) 09/11/19 23:48 Lymph # (Auto) 1.18 K/uL (1.2-3.4) L 09/11/19 23:48 [place] # (Auto) 0.61 K/uL (0.11-0.59) H 09/11/19 23:48 Eos # (Auto) 0.10 K/uL (0-0.5) 09/11/19 23:48 Baso # (Auto) 0.03 K/uL (0-0.2) 09/11/19 23:48 PT 10.7 Seconds (9.0-12.0) 09/11/19 23:48 INR 1.0 (0.9-1.1) 09/11/19 23:48 APTT 21.4 Seconds (21.0-31.0) 09/11/19 23:48 PTT Ratio 0.8 09/11/19 23:48 Sodium 136 mmol/L (136-145) 09/11/19 23:48 Potassium 3.5 mmol/L (3.5-5.1) 09/11/19 23:48 Chloride 101 mmol/L (98-107) 09/11/19 23:48 Carbon Dioxide 27 mmol/L (21-32) 09/11/19 23:48 Anion Gap 8.0 (3-11) 09/11/19 23:48 BUN 30 mg/dl (7-18) H 09/11/19 23:48 Creatinine 1.19 mg/dl (0.6-1.4) 09/11/19 23:48 Est Cr Clr Drug Dosing 48.4 ml/min 09/11/19 23:48 Est GFR ( Amer) 68.8 09/11/19 23:48 Est GFR (Non-Af Amer) 59.4 09/11/19 23:48 BUN/Creatinine Ratio 25.0 (10-20) H 09/11/19 23:48 Glucose 164 mg/dl (70-99) H 09/11/19 23:48 Calcium 9.2 mg/dl (8.5-10.1) 09/11/19 23:48 Magnesium 2.1 mg/dl (1.8-2.4) 09/11/19 23:48 Total Bilirubin 0.4 mg/dl (0.2-1) 09/11/19 23:48 Direct Bilirubin 0.1 mg/dl (0-0.2) 09/11/19 23:48 AST 18 U/L (15-37) 09/11/19 23:48 ALT 45 U/L (12-78) 09/11/19 23:48 Alkaline Phosphatase 153 U/L (45-117) H 09/11/19 23:48 Troponin I < 0.015 ng/ml (0-0.045) 09/11/19 23:48 Total Protein 7.1 gm/dl (6.4-8.2) 09/11/19 23:48 Albumin 3.4 gm/dl (3.4-5.0) 09/11/19 23:48 Lipase 99 U/L (73-393) 09/11/19 23:48 Urine Color Yellow 09/12/19 01:17 Urine Appearance Clear (Clear) 09/12/19 01:17 Urine pH 7.5 (4.5-7.5) 09/12/19 01:17 Ur Specific [place] 1.020 (1.000-1.030) 09/12/19 01:17 Urine Protein Negative (Negative) 09/12/19 01:17 Urine Glucose (UA) Trace (Negative) H 09/12/19 01:17 Urine Ketones Negative (Negative) 09/12/19 01:17 Urine Blood Negative (Negative) 09/12/19 01:17 Urine Nitrite Negative (Negative) 09/12/19 01:17 Urine Bilirubin Negative (Negative) 09/12/19 01:17 Urine Urobilinogen Negative (Negative) 09/12/19 01:17 Ur Leukocyte Esterase Negative (Negative) 09/12/19 01:17 Urine WBC (Auto) 0 /hpf (0-5) 09/12/19 01:17 Urine RBC (Auto) 0-4 /hpf (0-4) 09/12/19 01:17 U Hyaline Cast (Auto) 0 /lpf (0-5) 09/12/19 01:17 U Epithel Cells (Auto) 5-10 /lpf (0-5) H 09/12/19 01:17 Urine Bacteria (Auto) Negative (Negative) 09/12/19 01:17 CT head initial read: No acute intracranial hemorrhage/mass-effect/midline shift/hydrocephalus/or acute infarct. Generalized atrophy. Low-density in the bilateral periventricular white matter is nonspecific but probably represents chronic small vessel ischemic disease. CT abdomen pelvis initial read: 1. Increased loculated pleural effusion at the right apex. Underlying right upper lobe invasive mass better demonstrated on recent CT. 2. Resulting slight diminishment in aeration of the right lung. 3. Chronic bilateral lung infiltrates greater on the right, which likely relate to underlying emphysema. 4. 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 Chest x-ray as per my interpretation borderline cardiomegaly EKG as per my interpretation : Rate 55, sinus bradycardia, normal axis, no ischemia
[2019-09-12] MEDS ORDERED: GLUCOSE 10 TABS/TUBE PO PRN (05:06)
[2019-09-12] MEDS ORDERED: GLUCAGON FOR INJ 1 MG VIAL SQ PRN (05:06)
[2019-09-12] MEDS ORDERED: PROMETHAZINE HCL 12.5 MG in SODIUM CHLORIDE 0.9% 50 ML IV PRN (05:06)
[2019-09-12] MEDS ORDERED: CARBOHYDRATES FOR HYPOGLYCEMIA PO PRN (05:06)
[2019-09-12] MEDS ORDERED: NITROGLYCERIN SL 0.4 MG/TAB TAB SL PRN (05:06)
[2019-09-12] MEDS ORDERED: TRAZODONE HCL 50 MG TAB PO PRN (05:06)
[2019-09-12] MEDS ORDERED: DEXTROSE 50% 50 ML SYRINGE IV PRN (05:06)
[2019-09-12] MEDS ORDERED: GLUCOSE 40% GEL 15 GM TUBE PO PRN (05:06)
[2019-09-12] MEDS ORDERED: NSS + 20MEQ KCL 20 MEQ/1,000 ML BAG IV STA (05:06)
[2019-09-12] MEDS ORDERED: TRAMADOL HCL 50 MG TABLET PO PRN (05:06)
[2019-09-12] MEDS ORDERED: ACETAMINOPHEN 325 MG TAB PO PRN (05:17)
[2019-09-12] MEDS: INSULIN ASPART 100 UNITS/ML 3 ML PEN SC SCH ×4 (05:37→20:41)
[2019-09-12] MEDS: lisinopriL 5 MG TAB PO SCH (05:48)
--- NOTE | 2019-09-12 06:12 | Emergency Department Note ---
Entered by Med Dickey acting as a scribe for Ross Lara MD ED Provider Note Name: Mono Good Age: 73, male Arrives Via: EMS Informant: , patient CC: Confusion HPI: The patient is a 73 year old male who presents to the emergency department with complaints of constant confusion beginning yesterday. Per , the patient has a history of a stroke. She states that the patient has been weak and confused since yesterday. She notes that the patient has had intermittent episodes of nausea and vomiting for the last 3-4 months. She reports that the patient has also had a decreased appetite for food and fluids as well as diarrhea. She states that the patient has had left-sided weakness since the stroke. The patient denies any CP, urinary burning, cough, fever, rashes, and recent fall or injury. Per , the patient takes aspirin. HPI limited secondary to confusion. ROS: ROS limited secondary to confusion. Past Medical History: Hypertension, stroke, diabetes, depression Past Surgical History: None Family History: Diabetes, heart disease Social History: , lives with family, current some day smoker, denies alcohol use, denies drug use. Home Medications: Please see medication list. Allergies: none Physical: Vitals: BP 161/69, Pulse 57, Resp 20, Temp 98.2, O2 Sat 94 Exam: GENERAL: Patient is tired and dehydrated appearing, in minimal distress. EYES: No scleral icterus, unremarkable pupils. ENT: Mucous membranes dry, no nasal congestion. NECK: No masses appreciated, no meningismus, trachea is midline. RESPIRATORY: No dyspnea. Clear to auscultation and equal bilaterally. No wheeze, no rhonchi. CARDIOVASCULAR: Regular rate and rhythm. No murmurs, rubs, gallops appreciated. GASTROINTESTINAL: Abdomen soft, non-tender, no peritonitis. Bowel sounds positive. No masses appreciated. BACK: No midline tenderness, no CVA tenderness EXTREMITIES: Normal motion all extremities, no cyanosis, no edema. NEUROLOGIC: Alert and oriented, no acute motor or sensory deficits, cranial nerves grossly intact. Significant weakness of left arm, moderate weakness of left leg. SKIN: No rash, no jaundice, no diaphoresis. ED Course: Prior Medical Record, Triage/Nursing Notes, Medications, Allergies reviewed by Me [id number]: The patient was evaluated in room A11. A complete history and physical exam was performed. 0105: I reevaluated and updated the patient. He still has not urinated but he has no complaints. 0200: Upon reevaluation, the patient is stable. I discussed the findings and the treatment plan with the patient. He expresses agreement and understanding. [facility] The patient will be evaluated for further management. Vital Signs: reviewed and remarkable for HTN Labs: Reviewed and remarkable for wnl Interventions: Saline lock, nss bolus Imaging: CHEST X-RAY: Radiology results as stated below per my review and the radiologist's interpretation: CT HEAD: No acute intracranial hemorrhage, mass effect, midline shift, hydrocephalus or acute infarct. Generalized atrophy. Low-density in the bilateral periventricular white matter is nonspecific but probably represents chronic small vessel ischemic disease. Bony structures are intact. Soft tissues are unremarkable. Radiologist: Rishi Ferguson MD. Consults: 0200: I reviewed the patient's case with Dr. Gannon - Hospitalist, [facility]. He will evaluate the patient for further management. Blood pressure: Elevated - Will be Monitored by Hospitalist Disposition: Hospitalization Differentials: Sepsis, Infectious (UTI/Pneumonia/Meningitis/etc), Metabolic/Electrolyte Abnormality, Cardiac, Dehydration, Anemia, Hepatic, E ndocrine, Toxicologic, Neurologic, amongst other pathologies entertained. Medical Decision Makin yr old chronically unwell male with recent CVA arrives due to worsening weakness and ambulatory dysfunction. Be exam with dehydration and left sided weakness. He is not septic and currently is A&Ox4. No clear evidence of UTI nor PNA. family notes persistent vomiting for months (including prior to stroke). No abdominal TTP nor does he appear to have aspiration pneumonia. I do not have a good cause for acute worsening of weakness/ambulation issues over the last few days. Family makes clear he is in no way safe to return home. He is not vomiting here thus meds not given. I discussed with hospitalist who will bring in for further monitoring/evaluation. Impression: generalized weakness, confusion, dehydration, vomiting Ross Lara MD The scribe's documentation has been prepared under my direction and personally reviewed by me in its entirety. I confirm that the note above accurately reflects all work, treatment, procedures, and medical decision making performed by me. Impression & Plan Generalized weakness, Confusion, Dehydration, Vomiting Past Med/Surg History Medical History Bradycardia Atrial tachycardia HTN (hypertension) Stroke Hyperlipidemia DMII (diabetes mellitus, type 2) Depression Diabetes H/O tobacco use, presenting hazards to health Hypertension Insomnia Social History Preferred Language: Albanian Communication Ability: Effective Alterations Tailor Required: No Beliefs That Will Affect Care: None marital status: Current Living Situation: Spouse and Family Other Information That Helps Us Care for You: No Feels Safe at Home: Yes Smoking Status: Never smoker Second Hand Exposure: No ; Hx Alcohol Use: No Hx Substance Use: No Results & Data Vital Signs Vital Signs - 24 hr 09/11/19 22:21 09/11/19 23:13 09/12/19 01:20 Temperature 36.8 C Temperature Source Oral Sepsis Recent Fever Within 48 Hours No Sepsis Action Taken by Nursing No Action Required Pulse Rate 58 L Pulse Rate [Apical] 57 L 80 Respiratory Rate 20 20 18 Respiratory Effort / Characteristics Non-Labored Spontaneous Respiratory Depth Normal Normal Blood Pressure 175/53 H Blood Pressure [Left Arm] 161/69 H 139/78 Blood Pressure Mean 93 Blood Pressure Mean [Left Arm] 99 98 Pulse Oximetry 100 94 95 Oxygen Delivery Method Room Air Room Air Room Air 09/12/19 03:00 Temperature Temperature Source Sepsis Recent Fever Within 48 Hours Sepsis Action Taken by Nursing Pulse Rate Pulse Rate [Apical] 69 Respiratory Rate 18 Respiratory Effort / Characteristics Respiratory Depth Blood Pressure Blood Pressure [Left Arm] 184/71 H Blood Pressure Mean Blood Pressure Mean [Left Arm] 108 Pulse Oximetry 93 Oxygen Delivery Method Room Air Home Medications Current Medication List: was personally reviewed by me Laboratory Data Attestation: I reviewed the patient's lab results. Result diagrams: 09/11/19 23:48 09/11/19 23:48 Lab Results 09/11/19 09/11/19 09/11/19 Range/Units 23:48 23:48 23:48 WBC 7.16 (4.8-10.8) K/uL RBC 3.28 L (4.7-6.1) M/uL Hgb 10.4 L (14.0-18.0) g/dL Hct 29.9 L (42-52) % MCV 91.2 (80-100) fL MCH 31.7 (25-34) pg MCHC 34.8 (32-36) g/dL RDW Std Deviation 45.6 (36.4-46.3) fL RDW Coeff of Minnie 13.8 (11.5-14.5) % Plt Count 327 (130-400) K/uL MPV 8.5 (7.4-10.4) fL Immature Gran % (Auto) 0.4 % Neut % (Auto) 72.8 % Lymph % (Auto) 16.5 % [place] % (Auto) 8.5 % Eos % (Auto) 1.4 % Baso % (Auto) 0.4 % Immature Gran # (Auto) 0.03 H (0.00-0.02) K/uL Neut # (Auto) 5.21 (1.4-6.5) K/uL Lymph # (Auto) 1.18 L (1.2-3.4) K/uL [place] # (Auto) 0.61 H (0.11-0.59) K/uL Eos # (Auto) 0.10 (0-0.5) K/uL Baso # (Auto) 0.03 (0-0.2) K/uL PT 10.7 (9.0-12.0) Seconds INR 1.0 (0.9-1.1) APTT 21.4 (21.0-31.0) Seconds PTT Ratio 0.8 Sodium 136 (136-145) mmol/L Potassium 3.5 (3.5-5.1) mmol/L Chloride 101 (98-107) mmol/L Carbon Dioxide 27 (21-32) mmol/L Anion Gap 8.0 (3-11) BUN 30 H (7-18) mg/dl Creatinine 1.19 (0.6-1.4) mg/dl Est Cr Clr Drug Dosing 48.4 ml/min Est GFR ( Amer) 68.8 Est GFR (Non-Af Amer) 59.4 BUN/Creatinine Ratio 25.0 H (10-20) Glucose 164 H (70-99) mg/dl Calcium 9.2 (8.5-10.1) mg/dl Magnesium 2.1 (1.8-2.4) mg/dl Total Bilirubin 0.4 (0.2-1) mg/dl Direct Bilirubin 0.1 (0-0.2) mg/dl AST 18 (15-37) U/L ALT 45 (12-78) U/L Alkaline Phosphatase 153 H (45-117) U/L Troponin I < 0.015 (0-0.045) ng/ml Total Protein 7.1 (6.4-8.2) gm/dl Albumin 3.4 (3.4-5.0) gm/dl Lipase 99 (73-393) U/L Urine Color Urine Appearance (Clear) Urine pH (4.5-7.5) Ur Specific [place] (1.000-1.030) Urine Protein (Negative) Urine Glucose (UA) (Negative) Urine Ketones (Negative) Urine Blood (Negative) Urine Nitrite (Negative) Urine Bilirubin (Negative) Urine Urobilinogen (Negative) Ur Leukocyte Esterase (Negative) Urine WBC (Auto) (0-5) /hpf Urine RBC (Auto) (0-4) /hpf U Hyaline Cast (Auto) (0-5) /lpf U Epithel Cells (Auto) (0-5) /lpf Urine Bacteria (Auto) (Negative) 09/12/19 Range/Units 01:17 WBC (4.8-10.8) K/uL RBC (4.7-6.1) M/uL Hgb (14.0-18.0) g/dL Hct (42-52) % MCV (80-100) fL MCH (25-34) pg MCHC (32-36) g/dL RDW Std Deviation (36.4-46.3) fL RDW Coeff of Minnie (11.5-14.5) % Plt Count (130-400) K/uL MPV (7.4-10.4) fL Immature Gran % (Auto) % Neut % (Auto) % Lymph % (Auto) % [place] % (Auto) % Eos % (Auto) % Baso % (Auto) % Immature Gran # (Auto) (0.00-0.02) K/uL Neut # (Auto) (1.4-6.5) K/uL Lymph # (Auto) (1.2-3.4) K/uL [place] # (Auto) (0.11-0.59) K/uL Eos # (Auto) (0-0.5) K/uL Baso # (Auto) (0-0.2) K/uL PT (9.0-12.0) Seconds INR (0.9-1.1) APTT (21.0-31.0) Seconds PTT Ratio Sodium (136-145) mmol/L Potassium (3.5-5.1) mmol/L Chloride (98-107) mmol/L Carbon Dioxide (21-32) mmol/L Anion Gap (3-11) BUN (7-18) mg/dl Creatinine (0.6-1.4) mg/dl Est Cr Clr Drug Dosing ml/min Est GFR ( Amer) Est GFR (Non-Af Amer) BUN/Creatinine Ratio (10-20) Glucose (70-99) mg/dl Calcium (8.5-10.1) mg/dl Magnesium (1.8-2.4) mg/dl Total Bilirubin (0.2-1) mg/dl Direct Bilirubin (0-0.2) mg/dl AST (15-37) U/L ALT (12-78) U/L Alkaline Phosphatase (45-117) U/L Troponin I (0-0.045) ng/ml Total Protein (6.4-8.2) gm/dl Albumin (3.4-5.0) gm/dl Lipase (73-393) U/L Urine Color Yellow Urine Appearance Clear (Clear) Urine pH 7.5 (4.5-7.5) Ur Specific [place] 1.020 (1.000-1.030) Urine Protein Negative (Negative) Urine Glucose (UA) Trace H (Negative) Urine Ketones Negative (Negative) Urine Blood Negative (Negative) Urine Nitrite Negative (Negative) Urine Bilirubin Negative (Negative) Urine Urobilinogen Negative (Negative) Ur Leukocyte Esterase Negative (Negative) Urine WBC (Auto) 0 (0-5) /hpf Urine RBC (Auto) 0-4 (0-4) /hpf U Hyaline Cast (Auto) 0 (0-5) /lpf U Epithel Cells (Auto) 5-10 H (0-5) /lpf Urine Bacteria (Auto) Negative (Negative) Administered Medications Potassium Chloride/Sodium Chloride (Normal Saline W/20 Meq Kcl) 20 meq in 1,000 mls @ 50 mls/hr IV .Q20H STA Stop: 09/13/19 01:05 Last Admin: 09/12/19 05:48 Dose: 50 mls/hr Documented by: [id number] Insulin Aspart (Novolog Flexpen) 0 units SC ACHS KIKA Stop: 10/12/19 05:05 Last Admin: 09/12/19 05:37 Dose: Not Given Documented by: [id number] Cosigned by: [id number] Lisinopril (Zestril) 5 mg PO QAM KIKA Stop: 10/12/19 03:09 Last Admin: 09/12/19 05:48 Dose: 5 mg Documented by: [id number] Discontinued Medications Sodium Chloride (Nss 1000ml) 1,000 mls @ 999 mls/hr IV .Q1H1M ONE Stop: 09/12/19 00:39 Last Infusion: 09/12/19 01:50 Dose: 0 mls/hr Documented by: [id number] Admin: 09/11/19 23:51 Dose: 999 mls/hr Documented by: [id number] Ioversol (Optiray 320 100ml) 100 ml IV ONCE PRN PRN Reason: Interaction Checking Stop: 09/16/19 02:56 Last Admin: 09/12/19 02:58 Dose: 93 ml Documented by: [id number] Discharge Plan Visit Data *Final* Discharge Date/Time: 09/12/19 04:18 Chief Complaint: Confusion Stated Complaint: AMS ED Provider: Ross Lara Discharge Problem: Generalized weakness, Confusion, Dehydration, Vomiting Patient Disposition: Admitted As Inpatient Discharge Instructions Interventions: ED Discharge Assessment Last Done: 09/12/19 04:18 Discharge Problem: Vomiting Qualifiers: Vomiting type: unspecified Vomiting Intractability: non-intractable Nausea presence: with nausea Qualified Code(s): R11.2 - Nausea with vomiting, unspecified The scribe's documentation has been prepared under my direction and personally reviewed by me in its entirety. I confirm that the note above accurately reflects all work, treatment, procedures, and medical decision making performed by me.
--- NOTE | 2019-09-12 06:53 | CT Scan Report ---
CT abd pelvis IV con only CT DOSE: 422.98 mGy.cm HISTORY: Pain. Nausea. abd disc, n/v TECHNIQUE: Multiaxial CT images of the abdomen and pelvis were performed following the use of intrave nous contrast. A dose lowering technique was utilized adhering to the principles of ALARA. COMPARISON STUDY: None. FINDINGS: The lung bases are clear. The liver, spleen, gallbladder, pancreas, kidneys, and adrenal gl ands are within normal limits. No bowel wall thickening or obstruction. The pelvic organs are unremar kable. No suspicious lytic or blastic osseous lesions. Bladder wall thickening. This is nonspecific. IMPRESSION: No significant abnormality identified within the abdomen or pelvis. Bladder wall thickening possibly chronic versus related to cystitis. The above report was generated using voice recognition software. It may contain grammatical, syntax or spelling errors. Electronically signed by: Rajeev Sheldon M.D. 09/12/2019 6:52 AM
--- NOTE | 2019-09-12 06:55 | XRay Report ---
XR chest 1V portable CLINICAL HISTORY: 73 years-old Male presenting with confusion, weakness, frequent vomiting. TECHNIQUE: Portable upright AP view of the chest was obtained. COMPARISON: 07/22/2019. FINDINGS: Cardiac silhouette top normal in size. No focal opacity. No large effusion or pneumothorax. Degenerat annabella changes of the thoracic spine. Upper abdomen normal. IMPRESSION: 1. No acute cardiopulmonary disease. Electronically signed by: Axel Carbajal M.D. 09/12/2019 6:53 AM
--- NOTE | 2019-09-12 06:59 | CT Scan Report ---
CT head/brain wo con CLINICAL HISTORY: 73 years-old Male presenting with Confusion, recent stroke. TECHNIQUE: Multidetector CT imaging of the head was performed without the use of intravenous contrast . IV contrast: None. One or more dose lowering techniques were used consistent with the principles of ALARA (as low as reasonably achievable), including automatic exposure control, mA or kV adjustment t o individual patient size, and/or use of iterative reconstruction. COMPARISON: 08/02/2019. CT DOSE (mGy.cm): The estimated cumulative dose is 767.83 mGy.cm. FINDINGS: Section Gang topogram: The patient is edentulous. Proportional ventricular and sulcal prominence, likely age-related parenchymal volume loss. No hemorr leticia. Periventricular and subcortical white matter hypoattenuation, nonspecific but likely indicative of chronic small vessel ischemic change. Old lacunar infarct in the left thalamus and potentially in the right internal capsule. No acute territorial infarct. No mass effect or midline shift. No extra- axial fluid collection. Paranasal sinuses and mastoid air cells clear. Calvarium intact. IMPRESSION: 1. Chronic small vessel ischemic change. No acute intracranial abnormality. Electronically signed by: Axel Carbajal M.D. 09/12/2019 6:58 AM
[2019-09-12] MEDS: hydroCHLOROthiazide 25 MG TAB PO SCH (08:55)
[2019-09-12] MEDS: POTASSIUM CHLORIDE 20 MEQ TABCR PO SCH (08:55)
[2019-09-12] MEDS: hydrOXYzine HCl 10 MG TAB PO SCH ×2 (08:55→13:42)
[2019-09-12] MEDS: ASPIRIN 81 MG ECTAB PO SCH (08:56)
[2019-09-12] MEDS: CLOPIDOGREL BISULFATE 75 MG TAB PO SCH (08:56)
[2019-09-12] MEDS: ATORVASTATIN 40 MG TAB PO SCH (08:56)
[2019-09-12] MEDS: PANTOprazole 40 MG TAB PO SCH (08:56)
[2019-09-12] MEDS: VENLAFAXINE HCL XR 150 MG CAPXR PO SCH (08:57)
[2019-09-12] MEDS: ENOXAPARIN INJ 30 MG/0.3 ML SYR SQ SCH (09:21)
[2019-09-12] MEDS ORDERED: ONDANSETRON INJ 2 MG/ML 2 ML VIAL IV PRN (09:42)
--- NOTE | 2019-09-12 12:26 | Electroencephalogram ---
EEG Procedure Note Date of Service September 12, 2019 Start / End Times Start Time: 0800 End Time: [address] Herrera History episodic staring spells Home Medication List Home Medications Medication Instructions Recorded Confirmed Type albuterol sulfate 2 puff INHALATION Q6H PRN 07/22/19 09/11/19 History metformin 1,000 mg PO BIDM 07/22/19 09/11/19 History trazodone 50 mg PO HS PRN 07/22/19 09/11/19 History aspirin [Ecotrin Low Strength] 81 mg PO QAM #90 tab 07/25/19 09/11/19 Rx clopidogrel 75 mg PO QAM #30 tab 07/25/19 09/11/19 Rx acetaminophen [Tylenol] 650 mg PO Q4H PRN 09/11/19 09/11/19 History atorvastatin 80 mg PO QAM 09/11/19 09/11/19 History hydrochlorothiazide 25 mg PO QAM 09/11/19 09/11/19 History ibuprofen 400 mg PO Q8H PRN 09/11/19 09/11/19 History lisinopril 2.5 mg PO QAM 09/11/19 09/11/19 History ondansetron HCl [Zofran] 4 mg PO Q6H PRN 09/11/19 09/11/19 History venlafaxine 150 mg PO QAM 09/11/19 09/11/19 History hydroxyzine HCl 10 mg PO TID PRN 09/12/19 09/12/19 History pantoprazole 40 mg PO DAILY 09/12/19 09/12/19 History Inpatient Medication List [facility]ir[facility]ab[facility] [place] [facility]: 10/12/19 08:59 Last Admin: 09/12/19 08:56 Dose: 81 mg Documented by: [id number] Atorvastatin Calcium (Lipitor) [facility] [place] Stop: 10/12/19 08:59 Last Admin: 09/12/19 08:56 Dose: 80 mg Documented by: [id number] Clopidogrel Bisulfate (Plavix) 75 mg PO QAM [facility] Stop: 10/12/19 08:59 Last Admin: 09/12/19 08:56 Dose: 75 mg Documented by: [id number] Enoxaparin Sodium (Lovenox) 30 mg SQ QAM [facility] Stop: 10/12/19 08:59 Last Admin: 09/12/19 09:21 Dose: 30 mg Documented by: [id number] Hydrochlorothiazide (Hctz) 25 mg PO QAM [facility] Stop: 10/12/19 08:59 Last Admin: 09/12/19 08:55 Dose: 25 mg Documented by: [id number] Hydroxyzine HCl (Vistaril) 10 mg PO TID [facility] Stop: 10/12/19 08:59 Last Admin: 09/12/19 08:55 Dose: 10 mg Documented by: [id number] Insulin Aspart (Novolog Flexpen) 0 units SC ACHS [facility] Stop: 10/12/19 05:05 Last Admin: 09/12/19 11:58 Dose: 3 units Documented by: [id number] Cosigned by: [id number] Admin: 09/12/19 05:37 Dose: Not Given Documented by: [id number] Cosigned by: [id number] Lisinopril (Zestril) 5 mg PO QAM [facility] Stop: 10/12/19 03:09 Last Admin: 09/12/19 05:48 Dose: 5 mg Documented by: [id number] Lisinopril (Zestril) 2.5 mg PO QAM [facility] Stop: 10/12/19 08:59 Last Admin: 09/12/19 08:55 Dose: 2.5 mg Documented by: [id number] Pantoprazole Sodium (Protonix) 40 mg PO DAILY [facility] Stop: 10/12/19 08:59 Last Admin: 09/12/19 08:56 Dose: 40 mg Documented by: [id number] Potassium Chloride (Klor-Con M20) 40 meq PO TODAY@0845 [facility] Stop: 10/12/19 08:44 Last Admin: 09/12/19 08:55 Dose: 40 meq Documented by: [id number] Venlafaxine HCl (Effexor Extended Release) 150 mg PO QAM [facility] Stop: 10/12/19 08:59 Last Admin: 09/12/19 08:57 Dose: 150 mg Documented by: [id number] Discontinued Medications Sodium Chloride (Nss 1000ml) 1,000 mls @ 999 mls/hr IV .Q1H1M ONE Stop: 09/12/19 00:39 Last Infusion: 09/12/19 01:50 Dose: 0 mls/hr Documented by: [id number] Admin: 09/11/19 23:51 Dose: 999 mls/hr Documented by: [id number] Potassium Chloride/Sodium Chloride (Normal Saline W/20 Meq Kcl) 20 meq in 1,000 mls @ 50 mls/hr IV .Q20H STA Stop: 09/13/19 01:05 Last Infusion: 09/12/19 08:30 Dose: 0 mls/hr Documented by: [id number] Admin: 09/12/19 05:48 Dose: 50 mls/hr Documented by: [id number] Ioversol (Optiray 320 100ml) 100 ml IV ONCE PRN PRN Reason: Interaction Checking Stop: 09/16/19 02:56 Last Admin: 09/12/19 02:58 Dose: 93 ml Documented by: [id number] Description This is a 21 electrode EEG with a single channel dedicated to limited EKG. The electrodes were placed in accordance with the International 10-20 system. This EEG was performed as a bedside recording and is of reasonable technical quality. No activation procedures were utilized. Video analysis was technically limited but was not available for interpretation. Under these conditions there is no evidence for normal-appearing background alpha rhythm but rather a rhythm in the upper theta range of about 7 Hz and maximum frequency and of about 30 V of maximal amplitude. This is maximum posterior head regions bilaterally symmetrical. Photic to lower frequency modest amplitude theta activity seen centrally intermixed with higher amplitude waveforms in the delta range and some of these letter forms are little more prominent bifrontally but all this activity is symmetrical and demonstrates no lateralizing features and there is no associated potentially epileptiform patterns. Beta activity is difficult to discern due to overlying muscle movement artifact in the frontal regions Drowsiness and light sleep are not clearly recorded although some of the slower wave activity could correspond to normal drowsiness Interpretation This EEG is mildly diffusely abnormal without any lateralizing features or associated potentially epileptiform discharges and is consistent with a nonspecific generalized encephalopathy Clinical Correlation This is a mildly diffusely and nonspecifically abnormal EEG consistent with an encephalopathy without lateralizing features and without clear-cut potentially epileptiform discharges. That having been said if there is clinical suspicion for episodic seizure activity brief duration an outpatient 72-hour recording may be of further diagn ostic value Morgan Christianson MD
--- NOTE | 2019-09-12 15:14 | Neurology Consultation ---
Date of Consultation September 12, 2019 Assessment & Plan (1) Altered mental status: 1. EEG- no seizure focus 2. CT head- no acute findings 3. MRI - for evaluation of possible new stroke- ordered 4. continue plavix 75 mg and aspirin 81 mg for now 5. optimize HTN, HLD, DM LDL <70 6. reports confusion for 4-5 days- unclear if there is underlying dementia 7. 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 This could suggest either extensive atherosclerosis or dissection. Notably, the left vertebral artery is dominant rather than the right and the right vertebral artery is widely patent in the upper cervical spine through the intradural portion. These findings may be on an acute or chronic basis. 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 Lesser degrees of stenoses from atherosclerotic plaque as above. 8. ZIO ordered as outpatient but not done 9. further evaluation of possible seizure as outpatient with 72 hour EEG- also follow up with post stroke evaluation- if no other cause is found further recommendations to follow Supervising Physician Co-Signing Physician Notes I have seen and discussed above patient with Dr Stacey Jones, neurology/. pt seen and examined. 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 For last few days pt tends to stare when spoken to, but can me made to attend with physical cue such as shaking his arm. Pt is newly confused. Vomiting and diarrhea. Exam, oriented x 2, affect flat, paucity of spont speech. No field cut or R/L confusion. flat L NLF. LUE LLE greater than 3. Imp change in MS, inattentive, new incontinence vomiting, diarrhea no clear metalobolic abnl. EEG slow but no sz. Rec repeat MRI brain. Will follow with you. JAIMEE Jones MD History of Present Illness Reason for Consultation: episodes of staring spells Requesting Physician: Mich Balderrama MD Attending Physician: Mich Balderrama MD History of Present Illness Mono is a 73 year old male with a PMH- CVA, CAD/PVD as per records, hypertension, DM 2 on oral medications, chronic anemia (baseline hemoglobin 11- 12), past tobacco abuse, admitted 07/2019 for acute CVA. At that time he was discharged on dual antiplatelet. His and daughter are bedside and state he has been slow to answer them at times and also having some staring spells which last for several minutes. He states he is having a hard time hearing what his is saying and it takes a while to figure it out. he had a TTE during the p revious admission that showed 55-60% EF, and no ASD. was scheduled to have a ZIO as outpatient but was not done. denies CP, SOB, abdominal pain, increased one sided weakness, numbness tingling, +N, V, D. Allergies Allergy/AdvReac Type Severity Reaction Status Date / Time No Known Allergies Allergy Verified 09/11/19 22:48 Home Medications Home Medications Medication Instructions Recorded Confirmed Type albuterol sulfate 2 puff INHALATION Q6H PRN 07/22/19 09/11/19 History metformin 1,000 mg PO BIDM 07/22/19 09/11/19 History trazodone 50 mg PO HS PRN 07/22/19 09/11/19 History aspirin [Ecotrin Low Strength] 81 mg PO QAM #90 tab 07/25/19 09/11/19 Rx clopidogrel 75 mg PO QAM #30 tab 07/25/19 09/11/19 Rx acetaminophen [Tylenol] 650 mg PO Q4H PRN 09/11/19 09/11/19 History atorvastatin 80 mg PO QAM 09/11/19 09/11/19 History hydrochlorothiazide 25 mg PO QAM 09/11/19 09/11/19 History ibuprofen 400 mg PO Q8H PRN 09/11/19 09/11/19 History lisinopril 2.5 mg PO QAM 09/11/19 09/11/19 History ondansetron HCl [Zofran] 4 mg PO Q6H PRN 09/11/19 09/11/19 History venlafaxine 150 mg PO QAM 09/11/19 09/11/19 History hydroxyzine HCl 10 mg PO TID PRN 09/12/19 09/12/19 History pantoprazole 40 mg PO DAILY 09/12/19 09/12/19 History Patient History Medical History Bradycardia Atrial tachycardia HTN (hypertension) Stroke Hyperlipidemia DMII (diabetes mellitus, type 2) Depression Diabetes H/O tobacco use, presenting hazards to health Hypertension Insomnia Social History Preferred Language: [place] Communication Ability: Effective Utility Person Required: No Beliefs That Will Affect Care: None marital status: Current Living Situation: Spouse and Family Other Information That Helps Us Care for You: No Feels Safe at Home: Yes Smoking Status: Never smoker Second Hand Exposure: No ; Hx Alcohol Use: No Hx Substance Use: No Physical Exam Physical Exam: Physical Exam: Constitutional: appearance nourished, ill appearing Ears, Nose, Mouth and Throat: mucous membranes moist, no injection and skin normal, eyes normal Cardiovascular: normal S-1 and S-2 and regular rate and rhythm Respiratory: course breath sounds Musculoskeletal: no peripheral edema and good distal pulses Skin: no stigmata of neurocutaneous disease noted and normal and intact Eyes: extraocular muscles intact (EOMI) and pupils equal, round and reactive to light (PERRL), gross visual anderson intact NEUROLOGIC EXAMINATION: Mental status: Alert and interactive Oriented to [facility], can say no ifs ands buts, president is Trump, unable to say year or month Oriented to person Speech fluent with no evidence of aphasia Cranial Nerves flattening of nasolabial fold Reflexes: Deep tendon reflexes were symmetrical and graded 2/5. downgoing toes Sensory: intact to cool, or light touch Coordination: finger to nose no bi pass Gait/Stance: Posture normal. sitting up in bed Motor: + left pronator drift Strength: right hand pipeliner biceps triceps 4+/5, left hand pipeliner biceps tricpes 4/5 hip flex right 4+/5, left 4/5 plantar flex ext 5/5 bilaterally Results & Data Vital Signs (Past 12 Hours) Vital Signs Temp Pulse Pulse Resp BP Pulse Ox 09/12/19 15:00 36.8 C 58 L 18 151/59 H 98 09/12/19 07:31 36.5 C 56 L 18 178/70 H 97 09/12/19 07:25 50 L 09/12/19 05:20 36.8 C 56 L 174/72 H 99 09/12/19 03:42 67 20 146/86 H 100 Laboratory Results Abnormal lab results 09/11/19 09/11/19 09/12/19 Range/Units 23:48 23:48 01:17 RBC 3.28 L (4.7-6.1) M/uL Hgb 10.4 L (14.0-18.0) g/dL Hct 29.9 L (42-52) % Immature Gran # (Auto) 0.03 H (0.00-0.02) K/uL Lymph # (Auto) 1.18 L (1.2-3.4) K/uL Walsh # (Auto) 0.61 H (0.11-0.59) K/uL BUN 30 H (7-18) mg/dl BUN/Creatinine Ratio 25.0 H (10-20) Glucose 164 H (70-99) mg/dl POC Glucose (70-99) Alkaline Phosphatase 153 H (45-117) U/L Urine Glucose (UA) Trace H (Negative) U Epithel Cells (Auto) 5-10 H (0-5) /lpf 09/12/19 09/12/19 Range/Units 05:22 11:34 RBC (4.7-6.1) M/uL Hgb (14.0-18.0) g/dL Hct (42-52) % Immature Gran # (Auto) (0.00-0.02) K/uL Lymph # (Auto) (1.2-3.4) K/uL Walsh # (Auto) (0.11-0.59) K/uL BUN (7-18) mg/dl BUN/Creatinine Ratio (10-20) Glucose (70-99) mg/dl POC Glucose 174 H 184 H (70-99) Alkaline Phosphatase (45-117) U/L Urine Glucose (UA) (Negative) U Epithel Cells (Auto) (0-5) /lpf Diagnostic Findings CT abdomen/pelvis- No significant abnormality identified within the abdomen or pelvis. Bladder wall thickening possibly chronic versus related to cystitis. CT head-Chronic small vessel ischemic change. No acute intracranial abnormality. EEG-This EEG is mildly diffusely abnormal without any lateralizing features or associated potentially epileptiform discharges and is consistent with a nonspecific generalized encephalopathy
--- NOTE | 2019-09-12 15:56 | Hospitalist Progress Note ---
Date of Service September 12, 2019 Assessment & Plan (1) Altered mental status: -Patient seen and examined and appears to be responding to questions appropriately. Discussed with patient's at bedside exactly what she meant that patient had blank stare and her story was not very convincing in regards to absence seizure as she pointed out that patient was doing that at time hospitalist physician was in the room but all the patient was really doing was looking away from her and at his surroundings. but his also corroborated recent history of patient;s forgetfulness and she reports that this has been going for 2 days and this is why she brought him to the hospital. discussed that patient has no evidence of urinary tract infection, has not had any acute events noted during hospital stay today, and while the EKG did show a mildly diffusely and nonspecifically abnormal EEG consistent with an encephalopathy without lateralizing features, patient appears to be mentating well and does not appear to encephalopathic. EEG also does not show clear-cut potentially epileptiform discharges. Patient was also evaluated by physical and occupational therapy today and did recommend physical therapy after hospital stay but patient and his family does not want to go to physical rehabilitation or snf facility. -patient has received IV fluids during hospital stay -will advance patient's diet from clear liquids to regular diet -monitor patient overnight History of Stroke in the Past -on this admission CT head- no acute findings -continue plavix 75 mg and aspirin 81 mg and atorvastatin -neurology noted that previously patient had ZIO ordered as outpatient but not done and also recommended further evaluation of possible seizure as outpatient with 72 hour EEG HTN (hypertension) -continue home dose HCTZ and lisinopril Disposition: advance diet and continue to monitor overnight, if no acute events the preference of patient and patient's family is for discharge home tomorrow Subjective Patient seen and examined and appears to be responding to questions appropriately. Discussed with patient's at bedside exactly what she meant that patient had blank stare and her story was not very convincing in regards to absence seizure as she pointed out that patient was doing that at time hospitalist physician was in the room but all the patient was really doing was looking away from her and at his surroundings. but his also corroborated recent history of patient;s forgetfulness and she reports that this has been going for 2 days and this is why she brought him to the hospital. discussed that patient has no evidence of urinary tract infection, has not had any acute events noted during hospital stay today, and while the EKG did show a mildly diffusely and nonspecifically abnormal EEG consistent with an encephalopathy without lateralizing features, patient appears to be mentating well and does not appear to encephalopathic. EEG also does not show clear-cut potentially epileptiform discharges. Patient was also evaluated by physical and occupational therapy today and did recommend physical therapy after hospital stay but patient and his family does not want to go to physical rehabilitation or snf facil ity. on other review of systems, patient denies chest pain, or abdominal pain. no vomiting today. no dizziness or lightheadedness. Physical Exam Constitutional: comfortable Eyes: PERRL, conjunctivae normal, anicteric sclerae EOM intact bilaterally ENMT: external ear and nose normal, oropharynx normal Neck: normal visual inspection Respiratory: normal respiratory effort, lungs clear to auscultation Cardiovascular: Rate/Rhythm: + bradycardic Gastrointestinal (Abdomen): normal bowel sounds, soft, nontender, no hepatosplenomegaly Musculoskeletal: Head/Neck/Chest: normocephalic and head atraumatic Neurologic: PERRL, EOMI, accommodation nl, no face palsy, no dysarthria Psychiatric: Orientation: alert and cooperative Results & Data Vital Signs (Past 12 Hours) Vital Signs Temp Pulse Pulse Resp BP Pulse Ox 09/12/19 15:00 36.8 C 58 L 18 151/59 H 98 09/12/19 07:31 36.5 C 56 L 18 178/70 H 97 09/12/19 07:25 50 L 09/12/19 05:20 36.8 C 56 L 174/72 H 99
[2019-09-12] MEDS ORDERED: GADOBUTROL 65ML VIAL IV PRN (22:48)
--- NOTE | 2019-09-12 23:09 | Magnetic Resonance Report ---
Brain MRI WITH AND WITHOUT CONTRAST HISTORY: Confusion. Stroke symptoms. possible stroke TECHNIQUE: Multiplanar multisequence MRI of the brain was performed both before and after the intrave nous administration of contrast. COMPARISON STUDY: Head CT 09/11/2019. Brain MRI 07/22/2019. FINDINGS: There is a single punctate focus of restricted diffusion seen within the right basal gangli a on axial image 14 consistent with an acute infarct. The midline structures are intact. Mild atrophy and microvascular ischemic changes are again noted. A few old small right-sided infarcts are noted. Small focus of enhancement within the right inferior occipital lobe corresponding to an area of encep halomalacia likely represents expected changes associated with a chronic infarct. Otherwise, there is no mass, hematoma, midline shift. Mild mucosal thickening within the paranasal sinuses and a small f luid level within the left sphenoid sinus. The mastoid air cells are clear. IMPRESSION: 1. An acute lacunar infarct within the right basal ganglia. 2. Multiple old small additional right-sided infarcts are noted. 3. Mild atrophy and microvascular ischemic changes. 4. Acute on chronic paranasal sinusitis. Electronically signed by: Boston Ball M.D. 09/12/2019 11:08 PM
[2019-09-13 07:17] LABS: Basophils # (auto) 0.03 K/uL (0-0.2); Basophils % (auto) 0.5 %; Eosinophils # (auto) 0.55 K/uL (0-0.5); Eosinophils % (auto) 8.6 %; Hematocrit (blood only) 29.9 % (42-52); Immature Granulocytes # (auto) 0.04 K/uL (0.00-0.02); Immature Granulocytes % (auto) 0.6 %; Lymphocytes # (auto) 1.06 K/uL (1.2-3.4); Lymphocytes % (auto) 16.5 %; Mean Corpuscular Hemoglobin 31.3 pg (25-34); Mean Corpuscular Hgb Conc 33.4 g/dL (32-36); Mean Corpuscular Volume 93.4 fL (80-100); Mean Platelet Volume 8.7 fL (7.4-10.4); Monocytes # (auto) 0.66 K/uL (0.11-0.59); Monocytes % (auto) 10.3 %; Neutrophils # (auto) 4.08 K/uL (1.4-6.5); Neutrophils % (auto) 63.5 %; Platelet Count 251 K/uL (130-400); RDW Coefficient of Variation 14.1 % (11.5-14.5); RDW Standard Deviation 48.1 fL (36.4-46.3); White Blood Count 6.42 K/uL (4.8-10.8)
[2019-09-13 07:49] LABS: BUN Creatinine Ratio 18.6 (10-20); Calcium 9.1 mg/dl (8.5-10.1); Creatinine Clr Calc Pharmacy 45.9 ml/min; Est GFR (African American) 67.5; Est GFR (Non-African American) 58.2; Potassium 3.7 mmol/L (3.5-5.1)
[2019-09-13] MEDS: ATORVASTATIN 40 MG TAB PO SCH (07:56)
[2019-09-13] MEDS: hydroCHLOROthiazide 25 MG TAB PO SCH (07:56)
[2019-09-13] MEDS: lisinopriL 5 MG TAB PO SCH (07:56)
[2019-09-13] MEDS: ENOXAPARIN INJ 30 MG/0.3 ML SYR SQ SCH (07:56)
[2019-09-13] MEDS: PANTOprazole 40 MG TAB PO SCH (07:56)
[2019-09-13] MEDS: CLOPIDOGREL BISULFATE 75 MG TAB PO SCH (07:56)
[2019-09-13] MEDS: VENLAFAXINE HCL XR 150 MG CAPXR PO SCH (07:57)
[2019-09-13] MEDS: POTASSIUM CHLORIDE 20 MEQ TABCR PO SCH (07:57)
[2019-09-13] MEDS: INSULIN ASPART 100 UNITS/ML 3 ML PEN SC SCH ×4 (07:57→20:21)
[2019-09-13] MEDS: ASPIRIN 81 MG ECTAB PO SCH (07:57)
--- NOTE | 2019-09-13 08:26 | Hospitalist Progress Note ---
Date of Service September 13, 2019 Assessment & Plan (1) Altered mental status: Recurrent strokes Acute lacunar infarct within the right basal ganglia -History of Stroke in the Past -echocardiogram in 07/2019 with no evidence of ASD -continue plavix 75 mg and aspirin 81 mg and atorvastatin -the EEG did show a mildly diffusely and nonspecifically abnormal EEG consistent with an encephalopathy without lateralizing features, patient appears to be mentating well and does not appear to encephalopathic. EEG also does not show clear-cut potentially epileptiform discharges. Patient had brain MRI done on 09/12/19 evening and results as below concerning for new stroke since last stroke admission 1. An acute lacunar infarct within the right basal ganglia. 2. Multiple old small additional right-sided infarcts are noted. 3. Mild atrophy and microvascular ischemic changes. 4. Acute on chronic paranasal sinusitis. Functionally and clinically on exam, patient is about the same. He continues to have same left sided weakness (left lower extremity is weaker than right side. left upper extremity with dysmetria). mental status status is unchanged. No facial droop. he has been able to feed himself breakfast. patient does not have symptoms of chest pain. no shortness of breath. breathing on room air. no abdominal discomforts Have notified neurology consult team about recent findings and they will follow up on stroke prophylaxis. Have discussed with patient's on the phone and patient and would not recommend hospital discharge at this time. I highly recommended that patient and and his reconsider physical rehabilitation placement options. will upgrade from observation to full admission due to recurrent stroke. Dr. Reynaga will be the hospitalist following the patient starting today and is aware of hospital course and events HTN (hypertension) -continue home dose HCTZ and lisinopril Type 2 diabetes mellitus without longterm current use of insulin -holding patient's metformin while in the hospital -sliding scale insulin with meals -check HbA1c DVT prophylaxis Lovenox 30 mg subcutaneous daily Subjective Patient had brain MRI done on 09/12/19 evening and results as below concerning for new stroke since last stroke admission 1. An acute lacunar infarct within the right basal ganglia. 2. Multiple old small additional right-sided infarcts are noted. 3. Mild atrophy and microvascular ischemic changes. 4. Acute on chronic paranasal sinusitis. Functionally and clinically on exam, patient is about the same. He continues to have same left sided weakness (left lower extremity is weaker than right side. left upper extremity with dysmetria). mental status status is unchanged. No facial droop. he has been able to feed himself breakfast. patient does not have symptoms of chest pain. no shortness of breath. breathing on room air. no abdominal discomforts Have notified neurology consult team about recent findings and they will follow up on stroke prophylaxis. Have discussed with patient's on the phone and patient and would not recommend hospital discharge at this time. I highly recommended that patient and and his reconsider physical rehabilitation placement options. will upgrade from observation to full admission due to recurrent stroke. Dr. Reynaga will be the hospitalist following the patient starting today and is aware of hospital course and events. Physical Exam Constitutional: comfortable Eyes: PERRL, conjunctivae normal, anicteric sclerae EOM intact bilaterally ENMT: external ear and nose normal, oropharynx normal Neck: normal visual inspection Respiratory: normal respiratory effort, lungs clear to auscultation Cardiovascular: Rate/Rhythm: + bradycardic Gastrointestinal (Abdomen): normal bowel sounds, soft, nontender, no hepatosplenomegaly Musculoskeletal: Head/Neck/Chest: normocephalic and head atraumatic Neurologic: PERRL, EOMI, accommodation nl, no face palsy, no dysarthria left lower extremity is weaker than right side. left upper extremity with dysmetria Psychiatric: Orientation: alert and cooperative Results & Data Vital Signs (Past 12 Hours) Vital Signs Temp Pulse Pulse Pulse Resp BP BP 09/13/19 06:58 36.6 C 63 14 150/58 H 09/13/19 03:47 36.7 C 71 18 157/75 H 09/12/19 23:03 36.8 C 72 22 144/77 H 09/12/19 22:05 61 Pulse Ox 09/13/19 06:58 97 09/13/19 03:47 96 09/12/19 23:03 95 09/12/19 22:05
[2019-09-13] MEDS ORDERED: DEXTROSE 50% 50 ML SYRINGE IV PRN (08:40)
[2019-09-13] MEDS ORDERED: GLUCOSE 40% GEL 15 GM TUBE PO PRN (08:40)
[2019-09-13] MEDS ORDERED: CARBOHYDRATES FOR HYPOGLYCEMIA PO PRN (08:40)
[2019-09-13] MEDS ORDERED: GLUCAGON FOR INJ 1 MG VIAL SQ PRN (08:40)
[2019-09-13] MEDS ORDERED: GLUCOSE 10 TABS/TUBE PO PRN (08:40)
--- NOTE | 2019-09-13 14:53 | Neurology Progress Note ---
Date of Service September 13, 2019 Assessment & Plan (1) Altered mental status: 1. EEG- no seizure focus 2. CT head- no acute findings 3. MRI - new lacunar stroke right basal ganglia 4. continue plavix 75 mg and aspirin 81 mg for now 5. optimize HTN, HLD, DM LDL <70 6. reports confusion for 4-5 days- unclear if there is underlying dementia 7. 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 This could suggest either extensive atherosclerosis or dissection. Notably, the left vertebral artery is dominant rather than the right and the right vertebral artery is widely patent in the upper cervical spine through the intradural portion. These findings may be on an acute or chronic basis. 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 Lesser degrees of stenoses from atherosclerotic plaque as above. 8. ZIO ordered as outpatient but not done 9. further evaluation of possible seizure as outpatient with 72 hour EEG- also follow up with post stroke evaluation- if no other cause is found 10. will repeat CTA head and neck for any new vascular issues 11. sed rate, BISI, RPR, cardiolipid anti panel further recommendations to follow Supervising Physician Co-Signing Physician Notes I have seen and discussed above patient with Dr Stacey Jones, neurology. Pt seen and examined. MRI brain shows an acute to subacute infarct in the R BG, not prev noted. Pt is more alert, no complaints, no headache.O x 3. mild inattention NO field cut, minor flattening of L NLF. LUE varies btwn 3-4/5 with more drift and dystaxia on the basis of weakness than yesterday. RLE full, LLE nearly full. Dec LT L arm and leg. Minor fluctuation in LUE strength, ((greater than 24 hours after onset of new symptoms, initial stroke greater than 1 month ago) possibly of basis of some neglect, MS appears improved.. Glucose noncontrib. We are repeating CTA of head and neck, eval for stenosis, vasculitis. A CT of the head will be included in that study. If no bleed we will add additional asa 81 mg today and tomorr increase asa to 162 mg with Plavix. Unable to perform a Verify Now for asa or Plavix. Continue cardiac monitoring to r/o afib. Avoid hypotension, Vasculitis labs.Will follow with you. JAIMEE Jones MD Yolie Villareal is a 73 year old male with a PMH- CVA, CAD/PVD as per records, hypertension, DM 2 on oral medications, chronic anemia (baseline hemoglobin 11- 12), past tobacco abuse, admitted 07/2019 for acute CVA. At that time he was discharged on dual antiplatelet. His and daughter are bedside and state he has been slow to answer them at times and also having some staring spells which last for several minutes. He states he is having a hard time hearing what his is saying and it takes a while to figure it out. he had a TTE during the previous admission that showed 55-60% EF, and no ASD. was scheduled to have a ZIO as outpatient but was not done. family in room and state he is more responsive today. denies CP, SOB, abdominal pain, increased one sided weakness, numbness tingling, +N, V, D. Physical Exam Physical Exam: Physical Exam: Constitutional: appearance normal Ears, Nose, Mouth and Throat: mucous membranes moist, no injection and skin normal, eyes normal Cardiovascular: normal S-1 and S-2 and regular rate and rhythm Respiratory: course breath sounds Musculoskeletal: no peripheral edema and good distal pulses Skin: no stigmata of neurocutaneous disease noted and normal and intact Eyes: extraocular muscles intact (EOMI) and pupils equal, round and reactive to light (PERRL) NEUROLOGIC EXAMINATION: Mental status: Alert and interactive Oriented to 2019 president Allie, [facility] Oriented to person Speech fluent with no evidence of aphasia Cranial Nerves smile eye brow raise symmetric Sensory: intact to light and cool touch Coordination: finger to nose right no bipass, left no bi pass but dysmetric, heel to ann in tact on right dysmetric on left Gait/Stance: Posture normal. 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 triceps 5/5, left 4/5 hip flex right 5/5 left 4+/5 Results & Data Vital Signs (Past 12 Hours) Vital Signs Temp Pulse Pulse Resp BP BP Pulse Ox 09/13/19 10:53 36.7 C 64 18 138/56 L 94 09/13/19 06:58 36.6 C 63 14 150/58 H 97 10/23/19 03:47 36.7 C 71 18 157/75 H 96 Laboratory Results Abnormal lab results 09/12/19 09/12/19 09/13/19 Range/Units 16:50 20:13 07:02 RBC 3.20 L (4.7-6.1) M/uL Hgb 10.0 L (14.0-18.0) g/dL Hct 29.9 L (42-52) % RDW Std Deviation 48.1 H (36.4-46.3) fL Immature Gran # (Auto) 0.04 H (0.00-0.02) K/uL Lymph # (Auto) 1.06 L (1.2-3.4) K/uL [place] # (Auto) 0.66 H (0.11-0.59) K/uL Eos # (Auto) 0.55 H (0-0.5) K/uL Sodium (136-145) mmol/L BUN (7-18) mg/dl Glucose (70-99) mg/dl POC Glucose 131 H 149 H (70-99) 09/13/19 09/13/19 09/13/19 Range/Units 07:02 07:36 11:23 RBC (4.7-6.1) M/uL Hgb (14.0-18.0) g/dL Hct (42-52) % RDW Std Deviation (36.4-46.3) fL Immature Gran # (Auto) (0.00-0.02) K/uL Lymph # (Auto) (1.2-3.4) K/uL [place] # (Auto) (0.11-0.59) K/uL Eos # (Auto) (0-0.5) K/uL Sodium 135 L (136-145) mmol/L BUN 23 H (7-18) mg/dl Glucose 129 H (70-99) mg/dl POC Glucose 136 H 197 H (70-99) Diagnostic Findings MRI brain- An acute lacunar infarct within the right basal ganglia. Multiple old small additional right-sided infarcts are noted. Mild atrophy and microvascular ischemic changes. Acute on chronic paranasal sinusitis.
[2019-09-13] MEDS ORDERED: ASPIRIN 81 MG ECTAB PO ONE (17:30)
[2019-09-13] MEDS ORDERED: OPTIRAY 320 125ml IV PRN (17:40)
--- NOTE | 2019-09-13 18:02 | CT Scan Report ---
CT angio head wo/w CLINICAL HISTORY: 73 years-old Male presenting with confusion, compare to prior vascular abnormality on exam. TECHNIQUE: Multidetector CT angiography of the head was performed before and after the administration of intravenous contrast. 3-D volumetric and/or maximum intensity projection (MIP) images were subseq uently reconstructed for review. IV contrast: 119 mL of Optiray 320. One or more dose lowering techni ques were used consistent with the principles of ALARA (as low as reasonably achievable), including a utomatic exposure control, mA or kV adjustment to individual patient size, and/or use of iterative re construction. COMPARISON: Noncontrast CT head from 09/11/2019 and CTA head from 07/22/2019. CT DOSE (mGy.cm): The estimated cumulative dose is 1163.05. 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 NONCONTRAST CT HEAD: Proportional ventricular and sulcal prominence, likely age-related parenchymal volume loss. No hemorr leticia. Periventricular and subcortical white matter hypoattenuation, nonspecific but likely indicative of chronic small vessel ischemic change. No acute territorial infarct. No mass effect or midline kraig ft. No extra-axial fluid collection. Cannulated air fluid level in the sphenoid sinuses. Calvarium in tact. CTA HEAD: Anterior circulation: Atherosclerosis of the cavernous segments of the internal carotid arteries. Int racranial portions of the internal carotid arteries patent to the level of the termini. 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 There may also be an inf undibulum versus posterior type aneurysm slightly more distally measuring 1-2 mm of the right ICA. Si gnificant stenosis of the origin/proximal A1 segment of the left anterior cerebral artery. Middle cer ebral arteries patent. Anterior communicating artery patent. Posterior circulation: Left dominant vertebral artery. Intradural portions of the vertebral arteries patent. Posterior inferior cerebellar arteries patent. Basilar artery patent. Anterior inferior cereb ellar arteries poorly visualized. Superior cerebellar arteries patent. Posterior cerebral arteries pa tent. 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 Left posterior communicating artery (P-comm) patent. Right P-comm hypoplastic or aplastic. Dural venous sinuses: Patent. Other: Allowing for the phase of contrast, brain parenchyma within normal limits. Calvarium intact. IMPRESSION: 1. Chronic small vessel ischemic change. No acute intracranial abnormality. 2. Findings suggest acute sinusitis of the sphenoid sinuses. 3. Interval recannulization of the prior occlusion of the right HOUSEKEEPING DEPARTMENT WORKER. 4. 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 5. Significant stenosis of the origin/proximal A1 segment of the left BARON, unchanged from prior. Electronically signed by: Axel Carbajal M.D. 09/13/2019 6:00 PM
--- NOTE | 2019-09-13 18:16 | CT Scan Report ---
NECK CTA HISTORY: Abnormal neck CTA. Follow-up. evaluate vascular compared to previous TECHNIQUE: Multiaxial CT images of the neck were performed following the intravenous administration o f contrast to evaluate the major cervical vessels. Maximum intensity projection images were also obta ined. All measurements were calculated based on NASCET criteria. A dose lowering technique was utili zed adhering to the principles of ALARA. COMPARISON STUDY: Neck CTA 07/22/2019. FINDINGS: Aortic arch: Atherosclerosis of the three-vessel aortic arch with patent origins of the bra nch vessels. Innominate artery: Noncalcified atherosclerotic plaque resulting in 50% stenosis. Right subclavian artery: Patent. Right common carotid artery: Noncalcified atherosclerotic plaque resulting in less than 25% stenosis of the distal portion. Right internal and external carotid arteries: Calcified and noncalcified atherosclerotic plaque at th e carotid bifurcation. Over 90% stenosis of the origin of the external carotid artery. Less than 50% stenosis of the proximal ICA beyond the bifurcation. Left common carotid artery: Less than 25% stenosis of the origin due to noncalcified atherosclerotic plaque. Left internal and external carotid arteries: Significant noncalcified atherosclerotic plaque at the b ifurcation with approximately 90% focal stenosis of the origin of the internal carotid artery. Origin of the external carotid artery widely patent. Remainder of the ICA patent. Left subclavian artery: Atherosclerotic plaque with less than 25% stenosis of the origin and proximal course of the left subclavian artery. Vertebral arteries: Left dominant vertebral artery. Origin of the right vertebral artery is occluded as well as the proximal course. Reconstitution of flow within the artery within the transverse forame n at C6-7 with irregularity of the artery until the level of the mid cervical spine. Widely patent ri ght vertebral artery in the upper cervical spine through the intradural portion. Left vertebral arter y widely patent. Other: Improvement in the paranasal sinus disease. Degenerative changes of the cervical spine. Extens annabella emphysema at the apices. IMPRESSION: 1. 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 The right vertebral artery is widely patent in the upper cervical spine through the intr adural portion. This remains unchanged. 2. Approximately 90% stenosis of the left ICA, unchanged. 3. Over 90% stenosis of the right ECA, unchanged. 4. Lesser degrees of stenoses from atherosclerotic plaque as above. Electronically signed by: Boston Ball M.D. 09/13/2019 6:14 PM
[2019-09-14] MEDS ORDERED: MAGNESIUM SULFATE / D5W 1 GM/100 ML BAG IV ONE (02:44)
[2019-09-14] MEDS ORDERED: POTASSIUM CHLORIDE 20 MEQ TABCR PO STA (02:44)
[2019-09-14 03:40] LABS: Basophils # (auto) 0.03 K/uL (0-0.2); Basophils % (auto) 0.4 %; Eosinophils # (auto) 0.51 K/uL (0-0.5); Eosinophils % (auto) 7.5 %; Hemoglobin 11.2 g/dL (14.0-18.0); Immature Granulocytes # (auto) 0.04 K/uL (0.00-0.02); Immature Granulocytes % (auto) 0.6 %; Lymphocytes # (auto) 1.34 K/uL (1.2-3.4); Lymphocytes % (auto) 19.7 %; Mean Corpuscular Hemoglobin 31.5 pg (25-34); Mean Corpuscular Hgb Conc 33.9 g/dL (32-36); Mean Platelet Volume 8.7 fL (7.4-10.4); Monocytes % (auto) 10.3 %; Neutrophils # (auto) 4.17 K/uL (1.4-6.5); Neutrophils % (auto) 61.5 %; Platelet Count 317 K/uL (130-400); RDW Coefficient of Variation 14.2 % (11.5-14.5); Red Blood Count 3.55 M/uL (4.7-6.1); White Blood Count 6.79 K/uL (4.8-10.8)
[2019-09-14 03:55] LABS: BUN Creatinine Ratio 19.3 (10-20); Creatinine Clr Calc Pharmacy 39.9 ml/min; Est GFR (African American) 57.1; Est GFR (Non-African American) 49.2; Magnesium 2.5 mg/dl (1.8-2.4); Potassium 4.1 mmol/L (3.5-5.1)
--- NOTE | 2019-09-14 05:35 | Hospitalist Progress Note ---
Date of Service September 14, 2019 Subjective May aware by RN of episodic sinus tachycardia on the monitor. Patient asymptomatic and sleeping. serum sodium 134 serum crea 1.39 from 1.21 (09/13) Hg 11 from 10 (09/13) AP Episodic sinus tachycardia Mild dehydration Hold HCTZ for now IVF Will relay to AM provider. Results & Data Vital Signs (Past 12 Hours) Vital Signs Temp Pulse Pulse Resp BP Pulse Ox 09/14/19 04:08 36.7 C 56 L 20 157/61 H 96 09/13/19 23:47 70 09/13/19 22:58 36.7 C 50 L 18 131/62 96 09/13/19 19:17 36.9 C 75 16 130/66 96
[2019-09-14] MEDS ORDERED: SODIUM CHLORIDE 0.9% 500 ML IV ONE (05:36)
[2019-09-14 06:15] LABS: Estimated Average Glucose 128 mg/dl; Hemoglobin A1C 6.1 % (4.5-5.6)
[2019-09-14] MEDS: ENOXAPARIN INJ 30 MG/0.3 ML SYR SQ SCH (07:48)
[2019-09-14] MEDS: INSULIN ASPART 100 UNITS/ML 3 ML PEN SC SCH ×4 (07:48→21:21)
[2019-09-14] MEDS: lisinopriL 5 MG TAB PO SCH (07:49)
[2019-09-14] MEDS: ATORVASTATIN 40 MG TAB PO SCH (07:49)
[2019-09-14] MEDS: PANTOprazole 40 MG TAB PO SCH (07:49)
[2019-09-14] MEDS: CLOPIDOGREL BISULFATE 75 MG TAB PO SCH (07:49)
[2019-09-14] MEDS: ASPIRIN 81 MG ECTAB PO SCH (07:50)
[2019-09-14] MEDS: POTASSIUM CHLORIDE 20 MEQ TABCR PO SCH (07:50)
[2019-09-14] MEDS: VENLAFAXINE HCL XR 150 MG CAPXR PO SCH (07:50)
--- NOTE | 2019-09-14 14:49 | Neurology Progress Note ---
Date of Service September 14, 2019 Assessment & Plan (1) Altered mental status: 1. EEG- no seizure focus 2. CT head- no acute findings 3. MRI - new lacunar stroke right basal ganglia 4. continue plavix 75 mg and aspirin 81 mg for now 5. HLD, DM LDL <70 liberalize blood pressure to avoid hypotension 6. reports confusion for 4-5 days- unclear if there is underlying dementia 7. 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 This could suggest either extensive atherosclerosis or dissection. Notably, the left vertebral artery is dominant rather than the right and the right vertebral artery is widely patent in the upper cervical spine through the intradural portion. These findings may be on an acute or chronic basis. 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 Lesser degrees of stenoses from atherosclerotic plaque as above. 8. ZIO ordered as outpatient but not done 9. further evaluation of possible seizure as outpatient with 72 hour EEG- also follow up with post stroke evaluation- if no other cause is found 10. will repeat CTA head and neck for any new vascular issues- as above 11. sed rate- 62, BISI, RPR, cardiolipid anti panel- (pending) 12. ok to discharge to rehab when medically appropriate. further recommendations to follow Supervising Physician Co-Signing Physician Notes I have seen and discussed above patient with Dr Stacey Jones, neurology. Pt seen and examined. CTA CT of head last evening did not show a new infarct or new occlusion, See below. ESR 62, other vasculitis labs pending. Pt fluctuates throughout day. Awake, alert, not oriented. Wont count fingers, follows simple commands. No RL confusion. RUE bl LE greater than antigrav. LUE significant drift at best L arm is 3+/5 [facility], [place] [phone] CT Scan Report Patient: NUNU FUENTESAdmit Date: 09/13/19 MR#: [id number] Acct ID:[id number]: cc: ~ CT angio head wo/w CLINICAL HISTORY: 73 years-old Male presenting with confusion, compare to prior vascular abnormality on exam. TECHNIQUE: Multidetector CT angiography of the head was performed before and after the administration of intravenous contrast. 3-D volumetric and/or maximum intensity projection (MIP) images were subsequently reconstructed for review. IV contrast: 119 mL of Optiray 320. One or more dose lowering techniques were used consistent with the principles of ALARA (as low as reasonably achievable), including automatic exposure control, mA or kV adjustment to individual patient size, and/or use of iterative reconstruction. COMPARISON: Noncontrast CT head from 09/11/2019 and CTA head from 07/22/2019. CT DOSE (mGy.cm): The estimated cumulative dose is 1163.05. 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 NONCONTRAST CT HEAD: Proportional ventricular and sulcal prominence, likely age-related parenchymal volume loss. No hemorrhage. Periventricular and subcortical white matter hypoattenuation, nonspecific but likely indicative of chronic small vessel ischemic change. No acute territorial infarct. No mass effect or midline shift. No extra-axial fluid collection. Cannulated air fluid level in the sphenoid sinuses. Calvarium intact. CTA HEAD: Anterior circulation: Atherosclerosis of the cavernous segments of the internal carotid arteries. Intracranial portions of the internal carotid arteries patent to the level of the termini. 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 There may also be an infundibulum versus posterior type aneurysm slightly more distally measuring 1-2 mm of the right ICA. Significant stenosis of the origin/proximal A1 segment of the left anterior cerebral artery. Middle cerebral arteries patent. Anterior communicating artery patent. Posterior circulation: Left dominant vertebral artery. Intradural portions of the vertebral arteries patent. Posterior inferior cerebellar arteries patent. Basilar artery patent. Anterior inferior cerebellar arteries poorly visualized. Superior cerebellar arteries patent. Posterior cerebral arteries patent. The prior occlusion of the right AIR TRAFFIC SYSTEMS TECHNICIAN is no longer apparent. Left posterior communicating artery (P-comm) patent. Right P-comm hypoplastic or aplastic. Dural venous sinuses: Patent. Other: Allowing for the phase of contrast, brain parenchyma within normal limits. Calvarium intact. IMPRESSION: 1. Chronic small vessel ischemic change. No acute intracranial abnormality. 2. Findings suggest acute sinusitis of the sphenoid sinuses. 3. 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 4. 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 5. Significant stenosis of the origin/proximal A1 segment of the left BARON, unchanged from prior. Imp, presumed further progression of R MCA infarct with recent R MCA/AIR TRAFFIC SYSTEMS TECHNICIAN. Some of worsening could be from variable neglect. SVT last evening. No afib. Have increased asa, continue plavix. Vasculitis labs P, although doubt vasculitis. Rec repeat MRI brain noncontast. Will need zio at outpt. Discussed with nursing. JAIMEE Jones MD Yolie Villareal is a 73 year old male with a PMH- CVA, CAD/PVD as per records, hypertension, DM 2 on oral medications, chronic anemia (baseline hemoglobin 11- 12), past tobacco abuse, admitted 07/2019 for acute CVA. At that time he was discharged on dual antiplatelet. His and daughter are bedside and state he has been slow to answer them at times and also having some staring spells which last for several minutes. He states he is having a hard time hearing what his is saying and it takes a while to figure it out. he had a TTE during the previous admission that showed 55-60% EF, and no ASD. He was scheduled to have a ZIO as outpatient but was not done. No family in room. He seems more confused today not knowing why he is in hospital. denies CP, SOB, abdominal pain, increased one sided weakness, numbness tingling. Physical Exam Physical Exam: Gen: alert NAD lungs course breath sounds CV RRR left arm with neglect, unable to maintain to gravity hip flex bilaterally 4+/5 reflexes 2/5 throughout currently beltran in place. Results & Data Vital Signs (Past 12 Hours) Vital Signs Temp Pulse Resp BP Pulse Ox 09/14/19 10:59 36.4 C L 79 18 129/77 97 09/14/19 06:52 36.9 C 62 16 143/62 H 95 09/14/19 04:08 36.7 C 56 L 20 157/61 H 96 Laboratory Results Abnormal lab results 09/13/19 09/13/19 09/14/19 Range/Units 16:25 20:12 03:07 RBC 3.55 L (4.7-6.1) M/uL Hgb 11.2 L (14.0-18.0) g/dL Hct 33.0 L (42-52) % RDW Std Deviation 48.0 H (36.4-46.3) fL Immature Gran # (Auto) 0.04 H (0.00-0.02) K/uL [place] # (Auto) 0.70 H (0.11-0.59) K/uL Eos # (Auto) 0.51 H (0-0.5) K/uL ESR (0-14) mm/hr Sodium (136-145) mmol/L BUN (7-18) mg/dl Glucose (70-99) mg/dl POC Glucose 162 H 184 H (70-99) Hemoglobin A1c (4.5-5.6) % Magnesium (1.8-2.4) mg/dl 09/14/19 09/14/19 09/14/19 Range/Units 03:07 03:07 03:07 RBC (4.7-6.1) M/uL Hgb (14.0-18.0) g/dL Hct (42-52) % RDW Std Deviation (36.4-46.3) fL Immature Gran # (Auto) (0.00-0.02) K/uL [place] # (Auto) (0.11-0.59) K/uL Eos # (Auto) (0-0.5) K/uL ESR 62 H (0-14) mm/hr Sodium 134 L (136-145) mmol/L BUN 27 H (7-18) mg/dl Glucose 153 H (70-99) mg/dl POC Glucose (70-99) Hemoglobin A1c 6.1 H (4.5-5.6) % Magnesium 2.5 H (1.8-2.4) mg/dl 09/14/19 09/14/19 Range/Units 07:26 11:31 RBC (4.7-6.1) M/uL Hgb (14.0-18.0) g/dL Hct (42-52) % RDW Std Deviation (36.4-46.3) fL Immature Gran # (Auto) (0.00-0.02) K/uL [place] # (Auto) (0.11-0.59) K/uL Eos # (Auto) (0-0.5) K/uL ESR (0-14) mm/hr Sodium (136-145) mmol/L BUN (7-18) mg/dl Glucose (70-99) mg/dl POC Glucose 151 H 183 H (70-99) Hemoglobin A1c (4.5-5.6) % Magnesium (1.8-2.4) mg/dl Diagnostic Findings CTA neck-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 The right vertebral artery is widely patent in the upper cervical spine through the intradural portion. This remains unchanged. Approximately 90% stenosis of the left ICA, unchanged. Over 90% stenosis of the right ECA, unchanged. Lesser degrees of stenoses from atherosclerotic plaque as above. CTA head-Chronic small vessel ischemic change. No acute intracranial abnormality. Findings suggest acute sinusitis of the sphenoid sinuses. 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 Significant stenosis of the origin/proximal A1 segment of the left BARON, unchanged from prior.
[2019-09-14] MEDS: ACETAMINOPHEN 325 MG TAB PO PRN ×2 (15:18→23:17)
--- NOTE | 2019-09-14 17:55 | Hospitalist Progress Note ---
Date of Service September 14, 2019 Assessment & Plan (1) Altered mental status: Recurrent strokes Acute lacunar infarct within the right basal ganglia H/O CVA in the Past --MRI Brain:An acute lacunar infarct within the right basal ganglia. Multiple old small additional right-sided infarcts are noted. Mild atrophy and microvascular ischemic changes. Acute on chronic paranasal sinusitis. 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 The right vertebral artery is widely patent in the upper cervical spine through the intradural portion. This remains unchanged. Approximately 90% stenosis of the left ICA, unchanged. Over 90% stenosis of the right ECA, unchanged. Lesser degrees of stenoses from atherosclerotic plaque as above. --Head CTA:Chronic small vessel ischemic change. No acute intracranial abnormality. Findings suggest acute sinusitis of the sphenoid sinuses. Interval recannulization of the prior occlusion of the right WEIGHT SHIFTER. 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 Significant stenosis of the origin/proximal A1 segment of the left BARON, unchanged from prior. --ECHO: No ST detected, PFO is not assessed --EEG:This EEG is mildly diffusely abnormal without any lateralizing features or associated potentially epileptiform discharges and is consistent with a nonspecific generalized encephalopathy --Aspirin increased to 162 mg --Continue Plavix 75 mg, Lipitor --ESR:62 --Immunological/Serological studies to rule out vasculitis: Pending --Repeat MRI pending --PT/OT --Appreciate Neurology Input --Needs Outpatient 72-hour EEG; ZIO patch --Needs rehab placement HTN: continue lisinopril Hold HCTZ for now DM II hold metformin for now Hb A1C:6.1 Continue sliding scale insulin while hospitalized DVT Px: Lovenox SQ Code Status Full Code Disposition Needs rehab placement Subjective Patient is seen and examined at bedside Had urinary retention today Mental status seems to have been fluctuating Denies any chest pain, shortness of breath, dizziness, nausea, abdominal pain Vasculitis studies pending MRI brain pending Review of Systems Review of Systems: All systems reviewed & are unremarkable except as noted in HPI & below Physical Exam Physical Exam: Physical Exam: Vitals signs as noted above General Appearance:Moderately built and nourished, no apparent distress Head: normocephalic, Atraumatic Eyes: normal inspection, EOMI Neck: supple, Trachea midline Respiratory/Chest: Normal breath sounds, CTA Cardiovascular: S1, S2, No murmur Abdomen/GI:Soft, Non tender, Bowel sounds present Extremities/Musculoskelatal:normal inspection, no edema Neurologic/Psych:AAOX2, B/L LE weakness, LUE drift Skin: normal color, warm Results & Data Vital Signs (Past 12 Hours) Vital Signs Temp Pulse Pulse Pulse Resp BP Pulse Ox 09/14/19 15:40 36.7 C 66 18 129/51 L 94 09/14/19 15:04 86 09/14/19 10:59 36.4 C L 79 18 129/77 97 09/14/19 06:52 36.9 C 62 16 143/62 H 95 Laboratory Results Short CBC 09/14/19 Range/Units 03:07 WBC 6.79 (4.8-10.8) K/uL Hgb 11.2 L (14.0-18.0) g/dL Hct 33.0 L (42-52) % Plt Count 317 (130-400) K/uL BMP 09/14/19 03:07 Sodium 134 L Potassium 4.1 Chloride 98 Carbon Dioxide 29 BUN 27 H Creatinine 1.39 Glucose 153 H Calcium 9.0
--- NOTE | 2019-09-14 20:50 | Magnetic Resonance Report ---
MRI OF THE BRAIN WITHOUT CONTRAST CLINICAL HISTORY: increased LUE weakness COMPARISON STUDY: MRI of the brain September 12, 2019. Head CT and CTA of the head September 13, 2019. TECHNIQUE: Utilizing a 1.5 Amaris magnet and dedicated coil, multiplanar, multiecho imaging of the bra in was performed without IV contrast. FINDINGS: A small infarct within the right periventricular frontal lobe involving the basal ganglia i s unchanged since MRI of September 12, 2019. This is isointense on the ADC map. No additional foci of r estricted diffusion are noted. Ventricular system is stable. The basilar cisterns are patent. There a re no extra-axial collection. Multiple old right-sided infarcts are again noted. White matter T2 hype rintense foci suggest small vessel disease. There is no intracranial mass. Mild sinus mucosal thicken ing is noted. Orbits are unremarkable. Calvarial signal is maintained. There is mild atrophy. No acut e intracranial hemorrhage, midline shift or mass effect is present. IMPRESSION: 1. No change in a small subacute to acute infarct within the right periventricular frontal lobe invol ving the basal ganglia since prior MRI. No new infarcts. 2. Multiple old right-sided infarcts. 3. No significant change in appearance of the brain. Electronically signed by: Pablo De Guzman M.D. 09/14/2019 8:49 PM
[2019-09-15] MEDS: lisinopriL 5 MG TAB PO SCH (08:17)
[2019-09-15] MEDS: CLOPIDOGREL BISULFATE 75 MG TAB PO SCH (08:18)
[2019-09-15] MEDS: PANTOprazole 40 MG TAB PO SCH (08:18)
[2019-09-15] MEDS: ENOXAPARIN INJ 30 MG/0.3 ML SYR SQ SCH (08:18)
[2019-09-15] MEDS: ATORVASTATIN 40 MG TAB PO SCH (08:18)
[2019-09-15] MEDS: VENLAFAXINE HCL XR 150 MG CAPXR PO SCH (08:18)
[2019-09-15] MEDS: ASPIRIN 81 MG ECTAB PO SCH (08:18)
[2019-09-15] MEDS: INSULIN ASPART 100 UNITS/ML 3 ML PEN SC SCH ×4 (10:55→20:31)
--- NOTE | 2019-09-15 13:55 | Neurology Progress Note ---
Date of Service September 15, 2019 Assessment & Plan (1) Altered mental status: 1. EEG- no seizure focus 2. CT head- no acute findings 3. MRI - new lacunar stroke right basal ganglia repeated 09/14 no acute findings. 4. continue plavix 75 mg and aspirin 81 mg for now 5. HLD, DM LDL <70 liberalize blood pressure to avoid hypotension 6. reports confusion for 4-5 days- unclear if there is underlying dementia 7. 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 This could suggest either extensive atherosclerosis or dissection. Notably, the left vertebral artery is dominant rather than the right and the right vertebral artery is widely patent in the upper cervical spine through the intradural portion. These findings may be on an acute or chronic basis. 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 Lesser degrees of stenoses from atherosclerotic plaque as above. 8. ZIO ordered as outpatient but not done- needs done after discharge 9. CTA head and neck for any new vascular issues- no vasculitis no new findings. 10. sed rate- 62, BISI, RPR, cardiolipid anti panel- (pending) 11. discharge to [facility] tomorrow will follow as outpatient in 2-3 weeks after discharge from [facility]. will sign off for now. call with questions concerns. Supervising Physician Co-Signing Physician Notes I have seen and discussed above patient with Dr Morgan Christianson, neurology Seen this man, examined him, reviewed his imaging studies and discussed the case with Stacey Murillo PA-C along with reviewing the previous notes by Dr. Moragn Sabillon who evaluated him during his most recent stay here at [facility] for a slightly more extensive vascular event involving the right posterior circulation and deep perforating vessels in the kiki- thalamic and medial temporal region. He now presents with a lacunar infarction and the deep portions of the right hemisphere in the basal ganglia area which may well derive blood supply from the anterior circulation and angiographic studies have shown no significant cranial disease on the side and only extracranial occlusive disease in the left internal carotid and in the right vertebral The latter could have been the source of the original stroke but we are still unclear as to what has caused this recurrent event and there has been some recorded episodes of supraventricular tachycardia and there is obviously concerned about cardiogenic sources of emboli and specifically paroxysmal atrial fibrillation here. Unfortunately the ZIO Patch it was recommended last time has not been done and hopefully that will be performed at some point in the future after he is discharged to [facility] tomorrow He does have a modestly elevated sed rate and a connective tissue work-up is being performed but nothing about the appearance of his angiographic studies or his clinical picture suggests a systemic vasculitis or more specifically an intracranial vasculitis and I suspect this is going to be a nonspecific sed rate elevation. He does have a normocytic normochromic anemia and may well need an evaluation at some point for paraprotein anemic state from little at this up to his primary care physician Currently neurology will continue the dual antiplatelet regimen, continue to recommend that he have a zio patch and will see him back in neurologic follow-up several weeks after he is finally discharged from rehabilitation at [facility] We are currently signing off the case as it appears that he will be transferred tomorrow and we have no other significant recommendations at this point Morgan Christianson MD Yolie Villareal is a 73 year old male with a PMH- CVA, CAD/PVD as per records, hypertension, DM 2 on oral medications, chronic anemia (baseline hemoglobin 11- 12), past tobacco abuse, admitted 07/2019 for acute CVA. At that time he was discharged on dual antiplatelet. His and daughter are bedside and state he has been slow to answer them at times and also having some staring spells which last for several minutes. He states he is having a hard time hearing what his is saying and it takes a while to figure it out. he had a TTE during the previous admission that showed 55-60% EF, and no ASD. He was scheduled to have a ZIO as outpatient but was not done. Met family in [place]. They feel he is doing better today. He is less confused. denies CP, SOB, abdominal pain, increased one sided weakness, numbness tingling. Physical Exam Physical Exam: Gen: alert NAD lungs course breath sounds CV RRR knows 2019, [facility], president amilcar able to hold left hand against gravity. left pronator drift finger to nose left dysmetric hip flex 4+/5 bilaterally plantar flex ext 5/5 bilaterally Results & Data Vital Signs (Past 12 Hours) Vital Signs Temp Pulse Pulse Resp BP Pulse Ox 09/15/19 11:07 36.6 C 68 18 124/52 L 98 09/15/19 07:33 36.9 C 45 L 18 155/69 H 98 09/15/19 02:56 36.9 C 51 L 16 163/65 H 95 Laboratory Results Abnormal lab results 09/14/19 09/14/19 09/15/19 Range/Units 16:21 20:46 07:34 POC Glucose 175 H 214 H 162 H (70-99) 09/15/19 Range/Units 11:40 POC Glucose 188 H (70-99) Diagnostic Findings MRI brain- No change in a small subacute to acute infarct within the right periventricular frontal lobe involving the basal ganglia since prior MRI. No new infarcts. Multiple old right-sided infarcts. No significant change in appearance of the brain.
--- NOTE | 2019-09-15 18:25 | Hospitalist Progress Note ---
Date of Service September 15, 2019 Assessment & Plan (1) Altered mental status: Recurrent strokes Acute lacunar infarct within the right basal ganglia H/O CVA in the Past --MRI Brain:An acute lacunar infarct within the right basal ganglia. Multiple old small additional right-sided infarcts are noted. Mild atrophy and microvascular ischemic changes. Acute on chronic paranasal sinusitis. 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 The right vertebral artery is widely patent in the upper cervical spine through the intradural portion. This remains unchanged. Approximately 90% stenosis of the left ICA, unchanged. Over 90% stenosis of the right ECA, unchanged. Lesser degrees of stenoses from atherosclerotic plaque as above. --Head CTA:Chronic small vessel ischemic change. No acute intracranial abnormality. Findings suggest acute sinusitis of the sphenoid sinuses. Interval recannulization of the prior occlusion of the right CHLORINATOR. 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 Significant stenosis of the origin/proximal A1 segment of the left BARON, unchanged from prior. --ECHO: No ST detected, PFO is not assessed --EEG:This EEG is mildly diffusely abnormal without any lateralizing features or associated potentially epileptiform discharges and is consistent with a nonspecific generalized encephalopathy --Aspirin increased to 162 mg --Continue Plavix 75 mg, Lipitor --ESR:62 --Immunological/Serological studies to rule out vasculitis: Pending --Repeat MRI: No change in a small subacute to acute infarct within the right periventricular frontal lobe involving the basal ganglia since prior MRI. No new infarcts. Multiple old right-sided infarcts. No significant change in appearance of the brain. --PT/OT: Needs Rehab placement --Appreciate Neurology Input --Needs Outpatient 72-hour EEG; ZIO patch as outpatient --Plan to discharge to rehab facility when accepted HTN: continue lisinopril Hold HCTZ for now DM II hold metformin for now Hb A1C:6.1 Continue sliding scale insulin while hospitalized DVT Px: Lovenox SQ Code Status Full Code Disposition Needs rehab placement Case management on board Subjective Patient is seen and examined at bedside Less confused today Follows commands Offers no complaints Discussed with family at bedside in detail Denies any chest pain, shortness of breath, dizziness, nausea, abdominal pain Review of Systems Review of Systems: All systems reviewed & are unremarkable except as noted in HPI & below Physical Exam Physical Exam: Physical Exam: Vitals signs as noted above General Appearance:Moderately built and nourished, no apparent distress Head: normocephalic, Atraumatic Eyes: normal inspection, EOMI Neck: supple, Trachea midline Respiratory/Chest: Normal breath sounds, CTA Cardiovascular: S1, S2, No murmur Abdomen/GI:Soft, Non tender, Bowel sounds present Extremities/Musculoskelatal:normal inspection, no edema Neurologic/Psych:AAOX2, B/L LE weakness L > R, L UE weakness, LUE drift Skin: normal color, warm Results & Data Vital Signs (Past 12 Hours) Vital Signs Temp Pulse Pulse Pulse Resp BP BP 09/15/19 15:48 75 09/15/19 15:23 36.8 C 82 20 135/76 09/15/19 11:07 36.6 C 68 18 124/52 L 09/15/19 08:00 71 09/15/19 07:33 36.9 C 45 L 18 155/69 H Pulse Ox 09/15/19 15:48 09/15/19 15:23 92 09/15/19 11:07 98 09/15/19 08:00 09/15/19 07:33 98
[2019-09-15] MEDS: ACETAMINOPHEN 325 MG TAB PO PRN (19:24)
[2019-09-16 02:09] LABS: Anti Cardiolipin Ab IgG <14 GPL (< = 14); Anti Cardiolipin Ab IgM <12 MPL (< = 12); Anti Nuclear Antibody Screen NEGATIVE (NEGATIVE); Anti-Cardiolipin Ab IgA <11 APL (< = 11)
[2019-09-16] MEDS: INSULIN ASPART 100 UNITS/ML 3 ML PEN SC SCH ×3 (09:55→17:17)
[2019-09-16] MEDS: lisinopriL 5 MG TAB PO SCH (10:03)
[2019-09-16] MEDS: VENLAFAXINE HCL XR 150 MG CAPXR PO SCH (10:04)
[2019-09-16] MEDS: ATORVASTATIN 40 MG TAB PO SCH (10:04)
[2019-09-16] MEDS: ASPIRIN 81 MG ECTAB PO SCH (10:04)
[2019-09-16] MEDS: PANTOprazole 40 MG TAB PO SCH (10:04)
[2019-09-16] MEDS: CLOPIDOGREL BISULFATE 75 MG TAB PO SCH (10:04)
[2019-09-16] MEDS: ENOXAPARIN INJ 30 MG/0.3 ML SYR SQ SCH (10:04)
--- NOTE | 2019-09-16 12:34 | Hospitalist Progress Note ---
Date of Service September 16, 2019 Assessment & Plan (1) Altered mental status: Recurrent strokes Acute lacunar infarct within the right basal ganglia H/O CVA in the Past --MRI Brain:An acute lacunar infarct within the right basal ganglia. Multiple old small additional right-sided infarcts are noted. Mild atrophy and microvascular ischemic changes. Acute on chronic paranasal sinusitis. 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 The right vertebral artery is widely patent in the upper cervical spine through the intradural portion. This remains unchanged. Approximately 90% stenosis of the left ICA, unchanged. Over 90% stenosis of the right ECA, unchanged. Lesser degrees of stenoses from atherosclerotic plaque as above. --Head CTA:Chronic small vessel ischemic change. No acute intracranial abnormality. Findings suggest acute sinusitis of the sphenoid sinuses. Interval recannulization of the prior occlusion of the right [address] [employer]. 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 Significant stenosis of the origin/proximal A1 segment of the left BARON, unchanged from prior. --ECHO: No ST detected, PFO is not assessed --EEG:This EEG is mildly diffusely abnormal without any lateralizing features or associated potentially epileptiform discharges and is consistent with a nonspecific generalized encephalopathy --Aspirin increased to 162 mg --Continue Plavix 75 mg, Lipitor --ESR:62 --Immunological/Serological studies to rule out vasculitis: Negative --Repeat MRI: No change in a small subacute to acute infarct within the right periventricular frontal lobe involving the basal ganglia since prior MRI. No new infarcts. Multiple old right-sided infarcts. No significant change in appearance of the brain. --PT/OT: Needs Rehab placement --Appreciate Neurology Input --Needs Outpatient 72-hour EEG; ZIO patch as outpatient --Plan to discharge to rehab facility today HTN: continue lisinopril Hold HCTZ for now DM II hold metformin for now Hb A1C:6.1 Continue sliding scale insulin while hospitalized DVT Px: Lovenox SQ Code Status Full Code Disposition Plan to discharge to rehab facility today Case management on board Subjective Patient is seen and examined at bedside Sitting in chair comfortably No new complaints No confused today Denies any chest pain, shortness of breath, dizziness, nausea, abdominal pain Left sided weakness slightly better Planned to be discharged to rehab facility today Review of Systems Review of Systems: All systems reviewed & are unremarkable except as noted in HPI & below Physical Exam Physical Exam: Physical Exam: Vitals signs as noted above General Appearance:Moderately built and nourished, no apparent distress Head: normocephalic, Atraumatic Eyes: normal inspection, EOMI Neck: supple, Trachea midline Respiratory/Chest: Normal breath sounds, CTA Cardiovascular: S1, S2, No murmur Abdomen/GI:Soft, Non tender, Bowel sounds present Extremities/Musculoskelatal:normal inspection, no edema Neurologic/Psych:AAOX2, B/L LE weakness L > R, L UE weakness, LUE drift, weakness better Skin: normal color, warm Results & Data Vital Signs (Past 12 Hours) Vital Signs Temp Pulse Pulse Resp BP Pulse Ox 09/16/19 08:00 67 09/16/19 07:25 36.9 C 45 L 18 135/58 L 95 09/16/19 04:00 36.7 C 94 H 20 144/72 H 93
--- NOTE | 2019-09-16 12:55 | Discharge Summary ---
Date of Service September 16, 2019 Admission HPI Per Admitting Provider History obtained from patient, family, and records. Limited history from patient secondary to disorientation. Medical history significant for CVA, CAD/PVD as per records, hypertension, DM 2 on oral medications, chronic anemia (baseline hemoglobin 11-12), past tobacco abuse. Recent confinement July 2019 for acute CVA. Patient discharged on dual antiplatelet Rx. Patient noted to have episodic confusion the last 3 days as per . Blank stares lasting about a few minutes about 2-4 episodes a day the last 3 days as per . Patient denies headache, chest pain, S OB symptoms. Patient complaining of abdominal discomfort, nausea emesis symptoms yesterday. Good BM as per patient. As per patient's , she has been needing more help take care of patient at home since discharge from the hospital last month. Patient brought to the ER for evaluation. 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 Admission Exam Per Admitting Provider GENERAL: Comfortable, disoriented, no respiratory distress SKIN: Pallor, warm HEENT: Pale palpebral conjunctivae, no ptosis, dry buccal mucosa NECK : Supple, no tenderness CHEST : CTA, no tenderness HEART : Bradycardic, no obvious murmurs ABDOMEN: Some distention, no overt tenderness EXTREMITIES : No LE swelling/tenderness, no other conspicuous deformities noted NEUROLOGIC : Coherent but disoriented, L facial asymmetry (chronic), gait and stance not assessed, no other gross focality Principal Diagnosis Acute Stroke Discharge Data Allergies Allergy/AdvReac Type Severity Reaction Status Date / Time No Known Allergies Allergy Verified 09/11/19 22:48 Consultations 09/12/19 02:03 ED Decision to Admit Stat 09/12/19 05:06 Consult Case Management - Discharge Planning Routine Consult Neurology Routine Procedures Performed Brain MRI: 1. An acute lacunar infarct within the right basal ganglia. 2. Multiple old small additional right-sided infarcts are noted. 3. Mild atrophy and microvascular ischemic changes. 4. Acute on chronic paranasal sinusitis. CT ABD: No significant abnormality identified within the abdomen or pelvis. Bladder wall thickening possibly chronic versus related to cystitis. CXR: No acute cardiopulmonary disease. Neck CTA: 1. 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 The right vertebral artery is widely patent in the upper cervical spine through the intradural portion. This remains unchanged. 2. Approximately 90% stenosis of the left ICA, unchanged. 3. Over 90% stenosis of the right ECA, unchanged. 4. Lesser degrees of stenoses from atherosclerotic plaque as above Head CTA: 1. Chronic small vessel ischemic change. No acute intracranial abnormality. 2. Findings suggest acute sinusitis of the sphenoid sinuses. 3. Interval recannulization of the prior occlusion of the right RAD TECHNOLOGIST. 4. 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 5. Significant stenosis of the origin/proximal A1 segment of the left BARON, unchanged from prior. Ordered Studies 09/11/19 23:39 CT head/brain wo con Urgent 09/12/19 02:30 CT abd pelvis IV con only Urgent 09/12/19 16:47 MR brain wo/w con Routine 09/13/19 15:48 CT angio head wo/w Routine CT angio neck with con Routine 09/14/19 17:24 MR brain wo con Routine Hospital Course (1) Altered mental status: Recurrent strokes Acute lacunar infarct within the right basal ganglia H/O CVA in the Past --MRI Brain:An acute lacunar infarct within the right basal ganglia. Multiple old small additional right-sided infarcts are noted. Mild atrophy and microvascular ischemic changes. Acute on chronic paranasal sinusitis. 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 The right vertebral artery is widely patent in the upper cervical spine through the intradural portion. This remains unchanged. Approximately 90% stenosis of the left ICA, unchanged. Over 90% stenosis of the right ECA, unchanged. Lesser degrees of stenoses from atherosclerotic plaque as above. --Head CTA:Chronic small vessel ischemic change. No acute intracranial abnorma lity. Findings suggest acute sinusitis of the sphenoid sinuses. Interval recannulization of the prior occlusion of the right RAD TECHNOLOGIST. 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 Significant stenosis of the origin/proximal A1 segment of the left BARON, unchanged from prior. --ECHO: No ST detected, PFO is not assessed --EEG:This EEG is mildly diffusely abnormal without any lateralizing features or associated potentially epileptiform discharges and is consistent with a nonspecific generalized encephalopathy --Aspirin increased to 162 mg --Continue Plavix 75 mg, Lipitor --ESR:62 --Immunological/Serological studies to rule out vasculitis: Negative --Repeat MRI: No change in a small subacute to acute infarct within the right periventricular frontal lobe involving the basal ganglia since prior MRI. No new infarcts. Multiple old right-sided infarcts. No significant change in appearance of the brain. --PT/OT: Needs Rehab placement --Appreciate Neurology Input --Needs Outpatient 72-hour EEG; ZIO patch as outpatient --Plan to discharge to rehab facility today HTN: continue lisinopril Hold HCTZ for now DM II hold metformin for now Hb A1C:6.1 Continue sliding scale insulin while hospitalized DVT Px: Lovenox SQ Code Status Full Code Disposition Plan to discharge to rehab facility today Case management on board Total Time Total Time Spent Total Time Spent (In Minutes): 40 minutes Total Time Includes: Examination of the Patient, Discharge Planning, Medication Reconciliation, Communication With Other Providers and Other Discharge Plan Discharge Items Patient Disposition: Transfer [facility] Reason For Visit: HTN URGENCY,ACUTE STROKE Discharge Diagnosis: Acute Stroke Activity: Per Instructions section Exercise/Sports: Gradually increase as tolerated Non-emergency contact: Primary Care Provider and Neurologist Call non-emergency contact if: you have any medication questions, your symptoms worsen, your pain is not controlled, your pain is worsening, your pain is unusual for you, your pain is concerning for you and you have a fever Follow-up/Referrals: Santiago Serna MD [Primary Care Provider] - Diet: Carb Consistent or DM2 and Heart Healthy Addtl Attending Provider Instructions: Follow up with your PCP Dr. Serna on 09/22/19 at 11:00AM, Department Family Practice [facility] Follow up with your Neurologist Dr.Benjamin Chaim Sabillon, DO Department Neurology [facility] in 2-4 weeks Follow up with Cardiology on 09/20/2019 3:00 PM Provider Belinda Kelsey PA-C Department Cardiology, [facility] Follow up with your Vascular surgeon as advised Get Outpatient 72 hour Electroencephalogram and ZIO patch as outpatient Seek immediate medical attention if your symptoms reoccur or worsen Risk Factors for Stroke: You can reduce your chances of stroke by working with your medical provider to adopt a healthy lifestyle. Some specific ways to lower your chance of stroke are: * If you are a smoker, now is the time to stop smoking cigarettes * If you are diabetic, improve the control of your blood sugars * Avoid excessive amounts of alcohol * Control high blood pressure * Lose weight if you are overweight * Be sure to lead an active lifestyle * Eat a healthy diet low in salt, cholesterol and fat You should know about other risk factors for stroke that you are unable to control. These include: * Age 55 years or older * Male gender * Certain racial groups: , or / * Family History of Stroke, Mini stroke or Heart Attack * Sickle Cell Disease Follow Up: It is important for you to keep your follow up appointments with your medical provider. Who to Call and When: Medical Emergencies: Call 911 immediately if you experience any of the following warning signs and symptoms of Stroke: * Sudden numbness or weakness of the face, arm or leg, especially on one side of the body * Sudden confusion, trouble speaking or understanding * Sudden trouble seeing in one or both eyes * Sudden trouble walking, dizziness, loss of balance or coordination * Sudden severe headache with no cause Do not delay calling 911 if you experience any warning signs or symptoms of a stroke. Delay in seeking medical attention may affect what treatments can be given to you. . Pending Studies at Discharge: No Stand-Alone Forms: My [facility] Press, Smoking Cessation Skilled Items Patient informed of condition?: Yes DNR: No Discharge Level of Care: Skilled Communicable Disease: No Discharge Prognosis: Stable Lines: None Urinary Catheter: No Medications and DC Order Prescriptions: New lisinopril [Zestril] 5 mg Tablet 5 mg PO QAM 30 Days Qty: 30 RF: 1 Continued trazodone 50 mg Tablet 50 mg PO HS PRN (Reason: Insomnia) RF: 0 metformin 1,000 mg Tablet 1,000 mg PO BIDM RF: 0 albuterol sulfate 90 mcg/actuation Hfa Aerosol Inhaler 2 puff inhalation Q6H PRN (Reason: sob or wheezing) RF: 0 clopidogrel 75 mg Tablet 75 mg PO QAM Qty: 30 RF: 2 ondansetron HCl [Zofran] 4 mg Tablet 4 mg PO Q6H PRN (Reason: Nausea And Vomiting) RF: 0 venlafaxine 150 mg Capsule,Extended Release 24hr 150 mg PO QAM RF: 0 hydrochlorothiazide 25 mg Tablet 25 mg PO QAM RF: 0 acetaminophen [Tylenol] 325 mg Capsule 650 mg PO Q4H PRN (Reason: Fever Or Pain) RF: 0 atorvastatin 80 mg tablet 80 mg PO QAM RF: 0 pantoprazole 40 mg Tablet,Delayed Release (Dr/Ec) 40 mg PO DAILY RF: 0 hydroxyzine HCl 10 mg Tablet 10 mg PO TID PRN (Reason: pruritis) RF: 0 Changed aspirin [Ecotrin Low Strength] 81 mg Tablet,Delayed Release (Dr/Ec) 162 mg PO QAM Qty: 90 RF: 3 Discontinued ibuprofen 400 mg Tablet 400 mg PO Q8H PRN (Reason: Pain) RF: 0 lisinopril 2.5 mg Tablet 2.5 mg PO QAM RF: 0 Discharge Orders: Discharge Order (Routine); Ordered 09/16/19 Ordered By: Sanjay Reynaga Admission Data Admit Date/Time: 09/13/19 08:31 Attending Provider: Sanjay Reyngaa Admit Provider: Ant Gannon Primary Care Provider: Santiago Serna Other Providers: Ant Gannon ; Stacey Murillo ; Morgan Christianson ; Stacey Jones ; Morgan Sabillon ; Gracie Alva ; Mich Balderrama ; [facility]
== END 2019-09-16 20:08 | DRG 65 ==
LOC: ED 22:16 → 2S 22:16 → SUATTDRO 09-12 03:31 → 2S 09-12 04:18 → 2W 09-12 11:05 → SUATTDRO 09-13 08:31